=== PATIENT | female | born 1950 | race Caucasian/White ===

== ENCOUNTER 2024-03-31 22:31 | Inpatient (IN) | payer MEDICARE, SELFPAY ==
[2024-03-31 16:00] VITALS: BP 165/80
[2024-03-31 16:02] VITALS: BMI 25.6
[2024-03-31 16:41] LABS: % Basophils 0.4 % (0-2); % Immature Granulocytes 0.3 % (0-0.5); % Lymphocytes 8.2 % (20.5-51.1); % Neutrophils 79.1 % (42.2-75.2); Absolute Basophils 0.1 10^3/uL (0-0.2); Absolute Eosinophils 0.6 10^3/uL (0-0.7); Absolute Monocytes 0.8 10^3/uL (0.1-0.6); Absolute Neutrophils 9.4 10^3/uL (1.4-6.5); Hemoglobin 12.5 g/dL (12.0-16.0); Mean Corp Hgb Conc. 32.1 g/dL (33.0-37.0); Mean Corpuscular Hgb 27.8 pg (27.0-31.0); Mean Corpuscular Volume 86.9 fL (81.0-99.0); Mean Platelet Volume 9.9 fL (7.4-10.4); Nucleated Red Blood Cells % 0 %; Platelet Count 255 10^3/uL (130-400); Red Blood Cell Count 4.49 10^6/uL (4.20-5.40); Red Cell Dist. Width 13.9 % (11.5-14.5); White Blood Cell Count 11.9 10^3/uL (4.8-10.8)
--- NOTE | 2024-03-31 16:50 | ED.GENMED ---
History of Present Illness
<JONATHAN Pringle - Last Filed: 04/02/24 15:30>
General
Chief Complaint: Abdominal Pain
Source: patient
Exam Limitations: none
Time Seen by Provider: 03/31/24 15:45
Nursing documentation reviewed up to this point in time: agreed with
History of Present Illness
History of Present Illness:
74-year-old female presents to the ER for evaluation. 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 Follwed at [facility] on Immunetherapy.
She has since had a left nephrectomy. She started with abdominal pain left-sided this morning at 7 AM. She is nauseous and did vomit this once. She has not had diarrhea. She moved her bowels yesterday.
She drinks alcohol 'a couple of week.' Denies cp/sob
Past History
<JONATHAN Pringle - Last Filed: 04/02/24 15:30>
Past History
ED Past Medical History: Psychiatric (Anxiety/depression) and Other (UTIs, Melanoma, )
ED Past Surgical History: Gynecological (Tubal ligation), Tonsilectomy and Other (Mesh placed. Cystocel/Rectacel)
Social History
Tobacco: Non-smoker
Alcohol: None
Personal:
Living: with family
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
Family History
Family History: Other (Noncontributory)
Review of Systems
<JONATHAN Pringle - Last Filed: 04/02/24 15:30>
Review of Systems
Allergies reviewed?: Yes
All Other Systems: ROS reviewed and negative except as documented in HPI and ROS
Constitutional: Reports no symptoms; Denies fever, fatigue or chills
Respiratory: Reports no symptoms
Cardiac: Reports no symptoms
ABD/GI: Reports abdominal pain, nausea and vomiting; Denies diarrhea
: Reports no symptoms
Musculoskeletal: Reports no symptoms
Skin: Reports no symptoms
Hematologic/Lymphatic: Reports no symptoms
Psychiatric: Reports no symptoms
Phy Exam
<JONATHAN Pringle - Last Filed: 04/02/24 15:30>
General Physical Exam
General Presentation: no apparent distress
General age: appears stated age
General Skin: warm and dry
General Habitus: normal
General Mental: alert
General Hydration: appears well hydrated
Cardiovascular Exam
Cardiovascular Exam: regular rate/rhythm, no murmur and normal peripheral pulses
Pulmonary Exam
Pulmonary Exam: lungs clear and no respiratory distress
Gastrointestinal Exam
Gastrointestinal Exam: soft and other (tender throughout left abdomen )
Neurological Exam
Neurological Exam: alert and oriented x3
Musculoskeletal Exam
Musculoskeletal Exam: full ROM
Skin Exam
Skin Exam: normal color and warm/dry
Psychiatric Exam
Psychiatric Exam: normal mood/affect
Course
<JONATHAN Pringle - Last Filed: 04/02/24 15:30>
Orders/Labs/Results
Orders:
Orders
03/31/24 13:38
EKG [Electrocardiogram (*1)] Urgent
Reason for Study: Abdominal Pain
03/31/24 16:29
Complete Blood Count/With Diff Urgent
Comprehensive Metabolic Panel Urgent
Lipase Urgent
Troponin I Urgent
03/31/24 16:56
Iohexol [Omnipaque] See Protocol PO NOW STA
03/31/24 16:57
CT Abd/pel (oral only)-[facility] Only Urgent
Comment:
Reason For Exam: left sided abd pain hx of nephrectomy
03/31/24 16:58
0.9% Sodium Chloride 1000 ml [Nss] 1,000 ml IV BOLUS
03/31/24 18:41
HYDROmorphone [Dilaudid] 0.5 mg IV NOW STA
03/31/24 20:02
UA Reflex to Culture [Urinalysis Reflex To Culture] Urgent
Date Specimen was Collected: 03/31/24
Time Specimen was Collected: 20:01
03/31/24 22:12
Admit/Transfer Patient As Directed
Co-Sign Provider:
Level of Care: Inpatient admission
Assign to:: Medical/Surgical
Physician / Group: Boo Doss
Diagnosis: acute pancreatitis
Reason for Hospitalization: acute pancreatitis
Expected length of stay greater than two midnights?: Yes
ELOS- Estimated Length of Stay in days: 3
I certify the patient meets the requirements for IP care: Yes
PRN Pain Medication Management As Directed
May give lesser potent ordered pain med per pt: Yes
preference::
Protocol:: Medication orders for pain may be administered in a
manner that supports deferring to patient preference
when the pt is:
- Requesting an ordered lesser potent pain medication.
Least to most potent pain medications are defined
as: acetaminophen < NSAID < tramadol < opioids
(morphine, oxycodone, hydromorphone).
- Requesting a lesser dose of the same medication IF
ORDERED.
- Requesting a less intrusive route of administration
if both routes are prescribed by the provider (PO <
IV).
03/31/24 22:13
Code Status As Directed
Resuscitation Status: Full Code
03/31/24 23:40
Acetaminophen [Tylenol] 650 mg PO Q4HPRN PRN
Alprazolam [Xanax] 0.5 mg PO DAILYPRN PRN
Lactated Ringers [Lr] 1,000 ml IV 100 mls/hr
Morphine Sulfate 2 mg IV Q4HPRN PRN
Ondansetron Injectable [Zofran] 4 mg IV Q6HPRN PRN
03/31/24 23:40
Activity As Directed
Activity Level: Ambulate
Vital Signs As Directed
Frequency: Per unit guidelines
Weight As Directed
Frequency: Once
DX Deep Vein Thrombosis Video Routine
04/01/24 04:43
Basic Metabolic Panel IN AM
Complete Blood Count/No Diff IN AM
Lipase IN AM
04/01/24 08:00
Bupropion(24Hr)Extended Releas [WELLBUTRIN XL (24 hour extended release)] 150 mg PO DAILY
glucosamine-chondroitin [Osteo Bi-Flex] 1 tablet PO DAILY
04/01/24 18:00
Enoxaparin Sodium [Lovenox] 40 mg SC QPM
04/01/24 22:00
Ropinirole [Requip] 0.5 mg PO HS
Abnormal Lab Results
03/31/24
16:29
WBC 11.9 H 10^3/uL
(4.8-10.8)
MCHC 32.1 L g/dL
(33.0-37.0)
Absolute Neuts (auto) 9.4 H 10^3/uL
(1.4-6.5)
Absolute Lymphs (auto) 1.0 L 10^3/uL
(1.2-3.4)
Absolute Monos (auto) 0.8 H 10^3/uL
(0.1-0.6)
Neutrophils % 79.1 H %
(42.2-75.2)
Lymphocytes % 8.2 L %
(20.5-51.1)
Sodium 134 L mmol/L
(135-145)
Glucose 117 H mg/dl
(70-99)
Alkaline Phosphatase 135 H U/L
(38-126)
Lipase > 4000 H* U/L
(23-300)
03/31/24 16:29
03/31/24 16:29
Vital Signs
Initial and Last Documented VS:
Initial Vital Signs
Temp Pulse Resp Pulse Ox
98 F 82 18 98
03/31/24 13:38 03/31/24 13:38 03/31/24 13:38 03/31/24 13:38
Last Documented Vital Signs
Temp Pulse Resp BP Pulse Ox
97.7 F 93 18 160/93 95
04/01/24 15:30 04/01/24 15:30 04/01/24 15:30 04/01/24 15:30 04/01/24 15:30
Valve Maker consulted with Physician
Valve Maker consulted with physician?: Yes
Name of Physician Consulted: Dannielle
<Michael Morris PA-C - Last Filed: 03/31/24 20:41>
Orders/Labs/Results
Orders:
Orders
03/31/24 13:38
EKG [Electrocardiogram (*1)] Urgent
Reason for Study: Abdominal Pain
03/31/24 16:29
Complete Blood Count/With Diff Urgent
Comprehensive Metabolic Panel Urgent
Lipase Urgent
Troponin I Urgent
03/31/24 16:56
Iohexol [Omnipaque] See Protocol PO NOW STA
03/31/24 16:57
CT Abd/pel (oral only)-[facility] Only Urgent
Comment:
Reason For Exam: left sided abd pain hx of nephrectomy
03/31/24 16:58
0.9% Sodium Chloride 1000 ml [Nss] 1,000 ml IV BOLUS
03/31/24 18:41
HYDROmorphone [Dilaudid] 0.5 mg IV NOW STA
03/31/24 20:02
UA Reflex to Culture [Urinalysis Reflex To Culture] Urgent
Date Specimen was Collected: 03/31/24
Time Specimen was Collected: 20:01
03/31/24 22:12
Admit/Transfer Patient As Directed
Co-Sign Provider:
Level of Care: Inpatient admission
Assign to:: Medical/Surgical
Physician / Group: Boo Doss
Diagnosis: acute pancreatitis
Reason for Hospitalization: acute pancreatitis
Expected length of stay greater than two midnights?: Yes
ELOS- Estimated Length of Stay in days: 3
I certify the patient meets the requirements for IP care: Yes
PRN Pain Medication Management As Directed
May give lesser potent ordered pain med per pt: Yes
preference::
Protocol:: Medication orders for pain may be administered in a
manner that supports deferring to patient preference
when the pt is:
- Requesting an ordered lesser potent pain medication.
Least to most potent pain medications are defined
as: acetaminophen < NSAID < tramadol < opioids
(morphine, oxycodone, hydromorphone).
- Requesting a lesser dose of the same medication IF
ORDERED.
- Requesting a less intrusive route of administration
if both routes are prescribed by the provider (PO <
IV).
03/31/24 22:13
Code Status As Directed
Resuscitation Status: Full Code
03/31/24 23:40
Acetaminophen [Tylenol] 650 mg PO Q4HPRN PRN
Alprazolam [Xanax] 0.5 mg PO DAILYPRN PRN
Lactated Ringers [Lr] 1,000 ml IV 100 mls/hr
Morphine Sulfate 2 mg IV Q4HPRN PRN
Ondansetron Injectable [Zofran] 4 mg IV Q6HPRN PRN
03/31/24 23:40
Activity As Directed
Activity Level: Ambulate
Vital Signs As Directed
Frequency: Per unit guidelines
Weight As Directed
Frequency: Once
DX Deep Vein Thrombosis Video Routine
04/01/24 04:43
Basic Metabolic Panel IN AM
Complete Blood Count/No Diff IN AM
Lipase IN AM
04/01/24 08:00
Bupropion(24Hr)Extended Releas [WELLBUTRIN XL (24 hour extended release)] 150 mg PO DAILY
glucosamine-chondroitin [Osteo Bi-Flex] 1 tablet PO DAILY
04/01/24 18:00
Enoxaparin Sodium [Lovenox] 40 mg SC QPM
04/01/24 22:00
Ropinirole [Requip] 0.5 mg PO HS
Abnormal Lab Results
03/31/24
16:29
WBC 11.9 H 10^3/uL
(4.8-10.8)
MCHC 32.1 L g/dL
(33.0-37.0)
Absolute Neuts (auto) 9.4 H 10^3/uL
(1.4-6.5)
Absolute Lymphs (auto) 1.0 L 10^3/uL
(1.2-3.4)
Absolute Monos (auto) 0.8 H 10^3/uL
(0.1-0.6)
Neutrophils % 79.1 H %
(42.2-75.2)
Lymphocytes % 8.2 L %
(20.5-51.1)
Sodium 134 L mmol/L
(135-145)
Glucose 117 H mg/dl
(70-99)
Alkaline Phosphatase 135 H U/L
(38-126)
Lipase > 4000 H* U/L
(23-300)
03/31/24 16:29
03/31/24 16:29
Vital Signs
Initial and Last Documented VS:
Initial Vital Signs
Temp Pulse Resp Pulse Ox
98 F 82 18 98
03/31/24 13:38 03/31/24 13:38 03/31/24 13:38 03/31/24 13:38
Last Documented Vital Signs
Temp Pulse Resp BP Pulse Ox
97.7 F 93 18 160/93 95
04/01/24 15:30 04/01/24 15:30 04/01/24 15:30 04/01/24 15:30 04/01/24 15:30
<JONATHAN Pringle - Last Filed: 04/02/24 15:30>
MDM/Problems Addressed
MDM/Problems Addressed:
Patient is a 74-year-old female presents to the ER for evaluation. Patient has a history of stage IV melanoma with metastasis to kidney has history of left nephrectomy. She complains of left side abdominal pain. On exam she is tender throughout
the left side denies any fever chills. She is nauseous and did vomit once. She does have an elevated lipase of greater than 4000 [address] however will CT with oral contrast only.
1810: care of pt at this time transferred to LA[facility] Kennedy
<JONATHNA Pringle - Last Filed: 04/02/24 15:30>
*Radiology
Radiology exam reviewed: radiology read reviewed
*Pulse Oximetry
Patient hypoxic: no
<Michael Morris PA-C - Last Filed: 03/31/24 20:41>
*Critical Care Note
Total Time (30-74mins, 75-104mins- exclusive of procedures): Not Applicable
<Michael Morris PA-C - Last Filed: 03/31/24 20:41>
Update Note
Update Note:
Assumed care of patient pending CT of abdomen. CT of abdomen demonstrates acute pancreatitis. Reviewed labs. Lipase is more than 4000. Feeling slightly improved after Dilaudid and fluids. Will admit to hospital for acute pancreatitis
ED Attending Note
<JONATHAN Pringle - Last Filed: 04/02/24 15:30>
-
Portions of this chart may have been created with voice recognition software.� Occasional wrong word or��sound alike� substitutions may have occurred due to the inherent limitations of voice recognition software.
Discharge Plan
Departure
Patient Disposition: Admit
Date of Disposition: 03/31/24
Time of Disposition: 20:41
Presentation/result/management discussed w/ accepting MD/DO: Hospitalist
Discharge Problem:
Acute pancreatitis
Interventions
Interventions:
*Risk Screen - Suicide Last Done: 03/31/24 13:38
*General Assessment Last Done: 03/31/24 13:38
*Neglect/Abuse Screening Last Done: 03/31/24 13:38
ED- Fall Risk Assessment Last Done: 03/31/24 18:00
*ED COVID-19 Vaccine History Last Done: 03/31/24 13:38
*Nursing Disposition Last Done: 03/31/24 23:51
YQ-Xoxlue-Rydpohtefd Assessment Last Done: 03/31/24 18:00
Discharge Date and Time
Discharge Date/Time: 03/31/24 23:51
[2024-03-31 17:05] LABS: Troponin I < 0.012 ng/ml
[2024-03-31 17:06] LABS: ALT (SGPT) 23 U/L (0-35); AST (SGOT) 25 U/L (14-36); Albumin 3.9 g/dl (3.5-5.0); Alkaline Phosphatase 135 U/L (38-126); Blood Urea Nitrogen 17 mg/dl (7-17); Calcium 9.8 mg/dl (8.4-10.2); Carbon Dioxide 29 mmol/L (22-30); Chloride 98 mmol/L (98-107); Estimated Creatinine Clearance 57 ml/min; Glucose 117 mg/dl (70-99); Potassium 3.8 mmol/L (3.5-5.1); Sodium 134 mmol/L (135-145); Total Bilirubin 0.4 mg/dl (0.2-1.3); Total Protein 6.7 g/dl (6.3-8.2); eGFR > 60.00
[2024-03-31] MEDS: NSS 1000 IV (17:27)
[2024-03-31] MEDS: OMNIPAQUE 50 ML PO (17:27)
[2024-03-31 17:36] LABS: Lipase > 4000 U/L (23-300)
[2024-03-31] MEDS: DILAUDID 0.5 MG IV (18:46)
[2024-03-31 20:09] LABS: Urine Albumin Negative (Neg - Trace); Urine Bilirubin Negative (Negative); Urine Character Clear (Clear); Urine Color Yellow; Urine Glucose Negative (Negative); Urine Ketone Negative (Negative); Urine Leukocyte Negative (Negative); Urine Nitrite Negative (Negative); Urine Occult Blood Negative (Negative); Urine Urobilinogen Negative (Neg - 1+)
--- NOTE | 2024-03-31 21:12 | HPS.HSE ---
Addendum entered and electronically signed by Boo Doss DO 03/31/24 22:53:
Patient seen and examined independently. Agree with findings and plan as set forth by JONATHAN Moreno.
Patient is a 74y F with PMH significant for malignant melanoma who presents to ED complaining of abdominal pain. Patient states that she woke with this abdominal discomfort this AM. Pain was epigastric and associated with nausea / single
episode of emesis. She denies any fevers / chills. No diarrhea or urinary complaints. No prior h/o similar symptoms. Patient has no history of excessive alcohol use. She does note that her about 2 months ago and she has been
going out with friends more regularly to get out of the house. She will have perhaps 1/2 glass of wine during these outings.
She is on Opdivo for treatment of her melanoma and has been on this agent since 2022.
Ass:
Acute Pancreatitis - Uncertain Etiology
Malignant Melanoma on Immunotherapy
Anxiety / Depression
Restless Leg Syndrome
Plan:
Admit for further evaluation and treatment.
CT scan with acute pancreatitis. No note of gallstones or other significant abnormality.
NPO, IVFs, pain control and antiemetics.
Follow for clinical improvement and introduce / advance diet as able.
Check US in the AM to definitively exclude gallstones.
Opdivo can be associated with pancreatitis - ? if it would occur several years into treatment.
There has been some recent increase in EtOH intake - though not excessive by any measure.
Abstain from further EtOH.
Follow-up with Oncology (Gabriele Pillai) after discharge.
\\
Original Note:
Family Physician
-
Family Physician: Ly Gallardo DO
Chief Complaint
-
abdominal pain
History of Present Illness
Patient is a 74-year-old female with past medical history significant for hypertension, anxiety/depression and restless leg syndrome who presented to [facility] ED for evaluation of severe left sided abdominal pain that started this
morning. Patient reports that she woke up this morning and when she went to bathroom she noticed discomfort on left upper abdomen that gradually increased throughout day. She stated she tried tums thinking she was having severe indigestion but was
ineffective. She did have some nausea with an episode of vomiting prior to coming for evaluation. Patient denies any other symptoms at this time. She reports she is currently under care at [facility] for stage IV Melanoma receiving
monthly immunotherapy, next infusion 04/16/2024. Patient denies any fevers, chills, cough, shortness of breath, chest pain, constipation, diarrhea or urinary symptoms.
Medical History
Past Medical History
Past Medical History: Reports Other
Additional Past Medical History:
benign hypertension
anxiety/depression
restless leg syndrome
Hx metastatic melanoma
Past Surgical History: Reports Other
Additional Past Surgical History:
Pelvic Mesh for urinary incontinence/cystocele(2011)
Tubal with salpingectomy
Tonsillectomy (1971)
Rectocele repair(2018)
Left nephrectomy (08/15/2022)
wide excision melanoma/axillary dissection (10/25/21)
Social History
Tobacco: Non-smoker
Alcohol: Occasional
Drug: None
Personal:
Living: Alone
Employment: Retired
Family History
Family History: Not pertinent and Other (Father: Leukemia; Mom: Alzheimer's )
Allergies / Home Medications
Allergies reflects when Allergies were last updated in [employer].
Home Medications with original date entered in [employer]
Allergy/Medication List:
Allergies
Allergy/AdvReac Type Severity Reaction Status Date / Time
No Known Allergies Allergy Verified 11/27/22 21:50
Home Medications
acetaminophen 325 mg tablet (Tylenol) 650 mg PO Q4HPRN PRN mild pain 03/31/24
alprazolam 0.5 mg tablet (Xanax) 0.5 mg PO DAILYPRN PRN anxiety 03/31/24
bupropion HCl 150 mg 24 hr tablet, extended release (Wellbutrin XL) 150 mg PO DAILY 03/31/24
glucosamine-chondroitin 250 mg-200 mg tablet (Osteo Bi-Flex) 1 tab PO DAILY 03/31/24
ibuprofen 200 mg tablet (Advil) 400 mg PO Q8HPRN PRN mild pain 03/31/24
naproxen sodium 220 mg tablet (Aleve) 220 mg PO BIDPRN PRN mild pain 03/31/24
ropinirole 0.25 mg tablet 0.5 mg PO HS 03/31/24
Review of Systems
-
History Source: Patient
Constitutional: Reports No Symptoms
EENT: Reports No Symptoms
Respiratory: Reports No Symptoms
Cardiac: Reports No Symptoms
Abdomen/GI: Reports Abdominal Pain (left sided ), Nausea and Vomiting
: Reports No Symptoms
Musculoskeletal: Reports No Symptoms
Skin: Reports No Symptoms
Neurological: Reports No Symptoms
Endocrine: Reports No Symptoms
Hematologic/Lymphatic: Reports No Symptoms
Psych: Reports No Symptoms
Physical Exam
Vital Signs
Vital Signs
Temp Pulse Resp BP Pulse Ox
98 F 72 18 165/80 98
03/31/24 13:38 03/31/24 16:00 03/31/24 16:00 03/31/24 16:00 03/31/24 16:00
Physical Exam
General: Well Developed, Well Nourished, No Apparent Distress and Comfortable
HEENT: NormoCephalic, Moist mucous membranes, Atraumatic, Lequire Conjunctivae, Nose Appears Normal and Ears Appear Normal
Respiratory: Clear and Non Labored Respirations
Cardiac: S1/S2 and Regular Rhythm; No Murmur, Rub or Gallop
Breast: Deferred by me
GI: Soft, Normal Bowel Sounds and Tender; No Organomegaly
Rectal: Deferred by Provider
Genito-urinary: Deferred by me
Musculoskeletal: No Clubbing, No Cyanosis and No Edema
Skin: Warm and IV/Catheter Site; No Rash
Neuro: Awake, Alert, AO x 3 and Nonfocal/grossly intact
Psych: Intact Judgment/Insight and Depressed (lost 2 months ago )
Laboratory Results
-
03/31/24 16:29
03/31/24 16:
Laboratory Results
Total Bilirubin 0.4 mg/dl (0.2-1.3) 03/31/24 16:
AST 25 U/L (14-36) 03/31/24 16:
ALT 23 U/L (0-35) 03/31/24 16:
Alkaline Phosphatase 135 U/L (38-126) H 03/31/24 16:
Troponin I < 0.012 ng/ml 03/31/24 16:
Lipase > 4000 U/L (23-300) H* 03/31/24 16:
Data Reviewed
-
CT Scan: Report Reviewed by me (Abd/Pelvis: Acute pancreatitis with peripancreatic inflammatory fat stranding and edema in the upper abdomen. Recommend correlation with lipase levels.)
Medical Tests (Nuc Med, Echo, EKG etc): Report Reviewed by me (EKG: NORMAL SINUS RHYTHM)
Lab Data: Labs Reviewed by me (Lipase >4000, Alk Phos 135)
Impression/Plan
-
IMPRESSION/PLAN:
#acute pancreatitis
Lipase > 4000, Alk Phos 135
Abd/Pelvis CT: Acute pancreatitis with peripancreatic inflammatory fat stranding and edema in the upper abdomen. Recommend correlation with lipase levels.
EKG: NORMAL SINUS RHYTHM
- Admit to med/surg
- IVF
- NPO
- Abdominal US
#anxiety/depression
- continue alprazolam and bupropion
#restless leg syndrome
- continue ropinirole
#Hx metastatic melanoma
follows at [facility], currently receiving Immunotherapy
s/p left nephrectomy
#benign hypertension
Code status: Full code
DVT prophylaxis: Lovenox sq
[2024-03-31 23:09] VITALS: BP 158/88
[2024-03-31 23:53] VITALS: BP 165/100; BMI 26.6
[2024-04-01] MEDS: LR 1000 IV ×2 (00:15→09:59)
[2024-04-01] MEDS: MORPHINE SULFATE 2 MG IV ×2 (00:18→05:42)
[2024-04-01] MEDS: ZOFRAN 4 MG IV (00:18)
--- NOTE | 2024-04-01 02:13 | PTCARENOTE ---
Receive pt from ER. Pt alert oriented X3, calm and cooperative, in no distress. Pt assisted to her bed, steady on her feet. Pt oriented to the room, call quispe within reach. AV=306/100, HR=89, T=98.2, SpO2=96% on RA. Pt anxious and tearful @ times.
Pt states that she lost her about 2 months ago. Pt reports nausea, and pain in the left upper Abd (5/10). Pt is NPO. Zofran and morphine given, IVFs infusing as per order. Pt is resting in her bed. Will continue to monitor the pt.
[2024-04-01 03:56] VITALS: BP 155/79
[2024-04-01 05:06] LABS: Hematocrit 34.6 % (37.0-47.0); Hemoglobin 11.4 g/dL (12.0-16.0); Mean Corp Hgb Conc. 32.9 g/dL (33.0-37.0); Mean Corpuscular Hgb 28.3 pg (27.0-31.0); Mean Corpuscular Volume 85.9 fL (81.0-99.0); Mean Platelet Volume 10.2 fL (7.4-10.4); Platelet Count 221 10^3/uL (130-400); Red Blood Cell Count 4.03 10^6/uL (4.20-5.40); Red Cell Dist. Width 13.9 % (11.5-14.5); White Blood Cell Count 9.4 10^3/uL (4.8-10.8)
[2024-04-01 05:20] LABS: Blood Urea Nitrogen 14 mg/dl (7-17); Calcium 9.5 mg/dl (8.4-10.2); Carbon Dioxide 29 mmol/L (22-30); Chloride 102 mmol/L (98-107); Estimated Creatinine Clearance 65 ml/min; Glucose 98 mg/dl (70-99); Potassium 3.7 mmol/L (3.5-5.1); Sodium 135 mmol/L (135-145); eGFR > 60.00
[2024-04-01 06:10] LABS: Lipase > 4000 U/L (23-300)
[2024-04-01 07:40] VITALS: BP 158/86
--- NOTE | 2024-04-01 08:51 | W.PN.HOSP.TC ---
Today's Communication/Plan
-
IV fluids. Start diet and advance as tolerated.
Assessment / Plan
Assessment / Plan
Physical exam:
General: Well Developed, Well Nourished and No Apparent Distress
HEENT: Normocephalic, Atraumatic and Moist Mucous Membranes
Respiratory: Clear to Auscultation; Negative Wheezes, Rales or Rhonchi
Cardiac: Regular Rhythm and S1/S2
GI: Soft, mild tender and Nondistended
Musculoskeletal: No Clubbing, No Cyanosis and No Edema
Neuro: Awake, Alert and Oriented
Psych: Calm
A/P:
Acute pancreatitis:
IV fluid
Start clear liquid diet and advance as tolerated
Trend lipase
Seen CT of the abdomen and pelvis and abdominal ultrasound
Encourage alcohol abstinence
Metastatic melanoma:
On Opdivo as outpatient
Hypertension:
Continue home antihypertensive
Depression:
Continue antidepressant
Restless leg syndrome:
Continue Requip
DVT prophylaxis:
Lovenox SQ
CODE STATUS:
Full code
Anticipated Discharge: Within 24 hours
Subjective/Interval History
-
Date of Service: April 01, 2024
Patient feels better overall. She did not require pain medications earlier this morning. She also wants to go home although explained the need for inpatient monitoring now.
Objective Data
-
Labs:
Laboratory Results
04/01/24
04:43
WBC 9.4
Hgb 11.4 L
Hct 34.6 L
Plt Count 221
Sodium 135
Potassium 3.7
Chloride 102
Carbon Dioxide 29
BUN 14
Creatinine 0.7
Glucose 98
Calcium 9.5
Vital Signs:
Vital Signs
Temp Pulse Resp BP Pulse Ox
98.2 F 84 16 158/86 96
04/01/24 07:40 04/01/24 07:40 04/01/24 07:40 04/01/24 07:40 04/01/24 08:00
I&O
03/31/24 04/01/24 04/02/24
06:59 06:59 06:59
Intake Total 550 / 550
Balance 550 / 550
[2024-04-01 15:30] VITALS: BP 160/93
--- NOTE | 2024-04-01 16:16 | CM ---
Alert awake oriented patient who lives alone in a 2 story home with 2 steps to enter and 12 to bed bathroom.Her dgt Neha visits often She is independent in driving and in all activities of daily living.Offered VN she declined.
No adaptive devices
Never had VN/SNF
Pharmacy [facility]
PCP Dr Ky Gallardo
PLAN Home no needs
--- NOTE | 2024-04-01 16:26 | W.DCSUMMARY ---
Discharge Summary
Discharge Data
Date of Admission: 03/31/24
Date of Discharge: 04/01/24
-
Pending Results: No
Hospital Course
Patient 74 years female with history of metastatic melanoma on Opdivo as outpatient came with presentation of acute pancreatitis. She was kept n.p.o. and on IV fluid. We started her on clear liquid diet and advancing as tolerated and in the midst
of a workup. Patient did not want to wait for further workup and management of her pancreatitis and she wanted to sign AGAINST MEDICAL ADVICE and she did. She had mentioned something like that earlier and I have discussed with her and explained
risk and benefit and my associate covering for me also explained to her risks and benefits and she decided to leave. No other events were noticed.
Discharge duration: 35 minutes
Discharge Plan
-
Patient Disposition: Against Medical Advice
Discharge Diagnosis/Procedures: Acute pancreatitis. History of metastatic melanoma. Patient with depression.
Diet: Low Fat
Activity: As tolerated
Blood Work: Please PCP to order CBC, CMP, lipase within 1 week
Referrals:
Ly Gallardo, DO [Family Provider] - in less than 1 week
Prescriptions:
Continued
acetaminophen [Tylenol] 325 mg Tablet
650 mg PO Q4HPRN PRN (Reason: mild pain)
alprazolam [Xanax] 0.5 mg Tablet
0.5 mg PO DAILYPRN PRN (Reason: anxiety)
ropinirole 0.25 mg Tablet
0.5 mg PO HS
glucosamine-chondroitin [Osteo Bi-Flex] 250-200 mg Tablet
1 tab PO DAILY
bupropion HCl [Wellbutrin XL] 150 mg Tablet Extended Release 24 Hr
150 mg PO DAILY
Discontinued
naproxen sodium [Aleve] 220 mg Tablet
220 mg PO BIDPRN PRN (Reason: mild pain)
ibuprofen [Advil] 200 mg Tablet
400 mg PO Q8HPRN PRN (Reason: mild pain)
Discharge Date and Time
Discharge Date/Time: 04/01/24 18:57
Print Language: WELSH
[2024-04-01 16:32] LABS: Lipase 4505 U/L (23-300)
--- NOTE | 2024-04-01 17:25 | W.PN.UPDATE ---
Update Note
Progress Note Update
Nursing notified that the patient wants to leave [facility].
Talk to the patient twice once on the phone and once in person in detail regarding why she needs to stay. Patient stated that she had a Quesadilla. She has not required any pain medicine since 5 AM. Patient states that she lost her 2
months ago and she has a horse who she is very emotionally dependent with and she sees him every day. She cannot go 1 day without seeing the horse. She stated that she does not drink alcohol regularly but had a cup or glass of wine with friends.
She is also on Opdivo which can cause pancreatitis. I discussed both with her and also with elevated lipase. Ramifications of leaving AMA discussed including discussed. She is taking the responsibility. I asked to call her daughter, she said
not to call her.
She will call PCP.
AMA signed
--- NOTE | 2024-04-01 17:29 | PTCARENOTE ---
Patient refusing to stay in the hospital. Cross covering MD came and spoke to patient. Form signed.
== END 2024-04-01 18:57 | disposition left against medical advice (07) | DRG 439 ==
LOC: 4 EAST ACU 22:31
PROVIDERS: Emergency Medicine; Nurse Practitioner; Nurse Practitioner Family; ADMITTING PHYSICIAN Hospitalist; ATTENDING PHYSICIAN Hospitalist; EMERGENCY PHYSICIAN Emergency Medicine; FAMILY PHYSICIAN Internal Medicine
DX: K85.90 Acute pancreatitis without necrosis or infection, unspecified (principal); Z53.29 Procedure and treatment not carried out because of patient's decision for other reasons; C79.00 Secondary malignant neoplasm of unspecified kidney and renal pelvis; I10 Essential (primary) hypertension; F41.9 Anxiety disorder, unspecified; F32.A Depression, unspecified; C43.9 Malignant melanoma of skin, unspecified; G25.81 Restless legs syndrome; Z90.5 Acquired absence of kidney; Z79.899 Other long term (current) drug therapy; Z79.69 Long term (current) use of other immunomodulators and immunosuppressants
CPT/HCPCS: 74176; 76700; 80048; 80053; 81003; 83690; 84484; 85025; 85027; 93005; 96361; 96374; 99285

== ENCOUNTER → 2024-04-08 10:21 | Outpatient (REF) | payer MEDICARE, SELFPAY | LOC: HWRAD 10:21 | PROVIDERS: ATTENDING PHYSICIAN Internal Medicine | DX: R05.1 Acute cough (principal) | CPT/HCPCS: 71046 ==

== ENCOUNTER 2024-09-07 23:26 | Inpatient (IN) | payer MEDICARE, SELFPAY ==
[2024-09-07 19:00] VITALS: BP 169/96
[2024-09-07 19:03] VITALS: BMI 25.5
[2024-09-07 19:05] VITALS: BP 169/96
--- NOTE | 2024-09-07 20:10 | ED.GENMED ---
History of Present Illness
General
Chief Complaint: Weakness
Source: patient
Exam Limitations: none
Time Seen by Provider: 09/07/24 19:57
History of Present Illness
History of Present Illness:
74-year-old female fell out of her truck today. Has noted some progressive ataxia. Admits to being very wobbly. No other complaints. No significant trauma. She could not get off the ground today.
Past History
Past History
ED Past Medical History: Psychiatric (Anxiety/depression) and Other (UTIs, Melanoma, )
ED Past Surgical History: Gynecological (Tubal ligation), Tonsilectomy and Other (Mesh placed. Cystocel/Rectacel)
Social History
Tobacco: Non-smoker
Alcohol: None
Personal:
Living: with family
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
Family History
Family History: Other (Noncontributory)
Review of Systems
Review of Systems
All Other Systems: Not applicable
Respiratory: Reports no symptoms
Cardiac: Reports no symptoms
ABD/GI: Reports no symptoms
Phy Exam
Physical Exam
Physical Exam:
GENERAL: Alert and oriented in no apparent distress. Normocephalic atraumatic
EYE: Orbits normal.
NECK: Supple, nontender.
ENT: Pharynx without erythema
CARDIAC: Regular rate and rhythm without any obvious murmurs.
LUNGS: Clear breath sounds,normal
ABDOMEN: Soft, without focal tenderness or distention
NEUROLOGICAL: Alert and oriented , cranial nerves II through XII intact. Speech normal. Tow Motor Driver normal. Good strength with standing however very ataxic wide-based with a positive Romberg.
SKIN: Warm and dry, mild ecchymosis to both patellas
MUSCULOSKELETAL: No edema,no deformity.Good color. No bony tenderness. No chest wall tenderness.
PSYCH: Normal and appropriate interaction.
Course
Orders/Labs/Results
Orders:
Orders
09/07/24 20:07
CT Head W/o Iv Contrast Urgent
Comment:
Reason For Exam: Progressive ataxia
Cardiac Monitoring- Treatment ONCE
IV Insert/Care/Rem.- Treatment PRN
Pulse Ox/cont/shift [RESP] Stat
Quantity: 1
09/07/24 20:08
Electrocardiogram (*1) Stat
Reason for Study: Other
Other Reason for Exam: neuro symptoms
EKG- Treatment ONCE
09/07/24 21:18
Basic Metabolic Panel Urgent
Complete Blood Count/With Diff Urgent
09/07/24 21:22
Urinalysis Reflex To Culture Urgent
Date Specimen was Collected: 09/07/24
Time Specimen was Collected: 21:20
09/07/24 23:16
Admit/Transfer Patient As Directed
Co-Sign Provider:
Level of Care: Inpatient admission
Assign to:: Medical/Surgical
Physician / Group: Hospital
Diagnosis: Poor balance
Reason for Hospitalization: Poor balance
Expected length of stay greater than two midnights?: Yes
ELOS- Estimated Length of Stay in days: 3
I certify the patient meets the requirements for IP care: Yes
PRN Pain Medication Management As Directed
May give lesser potent ordered pain med per pt: Yes
preference::
Protocol:: Medication orders for pain may be administered in a
manner that supports deferring to patient preference
when the pt is:
- Requesting an ordered lesser potent pain medication.
Least to most potent pain medications are defined
as: acetaminophen < NSAID < tramadol < opioids
(morphine, oxycodone, hydromorphone).
- Requesting a lesser dose of the same medication IF
ORDERED.
- Requesting a less intrusive route of administration
if both routes are prescribed by the provider (PO <
IV).
09/07/24 23:18
Code Status As Directed
Resuscitation Status: Full Code
Abnormal Lab Results
09/07/24
21:18
Hct 35.5 L %
(37.0-47.0)
MCV 80.9 L fL
(81.0-99.0)
RDW 15.2 H %
(11.5-14.5)
Abs Immat Gran (auto) 0.1 H 10^3/uL
(0-0.05)
Absolute Neuts (auto) 7.0 H 10^3/uL
(1.4-6.5)
Absolute Monos (auto) 0.9 H 10^3/uL
(0.1-0.6)
Immature Gran % 0.6 H %
(0-0.5)
Lymphocytes % 15.4 L %
(20.5-51.1)
Sodium 130 L mmol/L
(135-145)
Chloride 97 L mmol/L
(98-107)
BUN 18 H mg/dl
(7-17)
09/07/24 21:18
09/07/24 21:18
Vital Signs
Initial and Last Documented VS:
Initial Vital Signs
Pulse Resp
96 17
09/07/24 18:59 09/07/24 18:59
Last Documented Vital Signs
Temp Pulse Resp BP Pulse Ox
99.6 F 101 19 163/97 92
09/07/24 19:05 09/07/24 22:25 09/07/24 22:25 09/07/24 22:00 09/07/24 22:25
MDM/Problems Addressed
Differential Diagnosis Includes:
Patient with significant ataxia. Warrants inpatient admission. Clearly would have significant ADL issues and lives alone.
*Pulse Oximetry
SaO2: 95
Nasal Cannula flow liters per minute: 95
Oxygen Mode of Delivery: Room air
Patient hypoxic: no
*Critical Care Note
Total Time (30-74mins, 75-104mins- exclusive of procedures): Not Applicable
Data Reviewed
Review of Other/Old Records Reveals: Labs, Records and Testing
ED Attending Note
-
Portions of this chart may have been created with voice recognition software.� Occasional wrong word or��sound alike� substitutions may have occurred due to the inherent limitations of voice recognition software.
Discharge Plan
Departure
Patient Disposition: Admit
Date of Disposition: 09/07/24
Time of Disposition: 22:30
Presentation/result/management discussed w/ accepting MD/DO: Hospitalist
Discharge Problem:
Progressive ataxia
Interventions
Interventions:
*General Assessment Last Done: 09/07/24 19:05
*Neglect/Abuse Screening Last Done: 09/07/24 21:26
*ED- Fall Risk Assessment Last Done: 09/07/24 19:05
*ED COVID-19 Vaccine History Last Done: 09/07/24 19:05
ED- Cardiac Assessment Last Done: 09/07/24 19:51
ED- Neurological Assessment Last Done: 09/07/24 19:51
ED- Pulmonary Assessment Last Done: 09/07/24 19:51
[2024-09-07 20:55] VITALS: BP 187/99
[2024-09-07 21:30] LABS: Hematocrit 35.5 % (37.0-47.0); Hemoglobin 12.0 g/dL (12.0-16.0); Mean Corp Hgb Conc. 33.8 g/dL (33.0-37.0); Mean Corpuscular Volume 80.9 fL (81.0-99.0); Nucleated Red Blood Cells % 0 %; Platelet Count 312 10^3/uL (130-400); Red Cell Dist. Width 15.2 % (11.5-14.5)
[2024-09-07 21:36] LABS: Urine Character Clear (Clear)
[2024-09-07 22:00] VITALS: BP 163/97
[2024-09-07 22:07] LABS: Blood Urea Nitrogen 18 mg/dl (7-17); Calcium 10.2 mg/dl (8.4-10.2); Carbon Dioxide 23 mmol/L (22-30); Chloride 97 mmol/L (98-107); Estimated Creatinine Clearance 53 ml/min; Glucose 92 mg/dl (70-99); Potassium 4.5 mmol/L (3.5-5.1); Sodium 130 mmol/L (135-145); eGFR > 60.00
--- NOTE | 2024-09-07 22:57 | HPS.HSE ---
Family Physician
-
Family Physician: Ly Gallardo DO
Chief Complaint
-
Problems with balance
History of Present Illness
74-year-old woman fell out of her truck today. Has noted some progressive ataxia over several weeks, which she describes more as a balance problem and less as a problem with strength. She dmits to being very wobbly. No other complaints. No
significant trauma. She could not get off the ground today. Her daughter is concerned that the patient may be drinking more than she admits, she is also concerned that this may be a progressive dementia syndrome. patient is having increasingly
frequent bouts of forgetfulness and confusion. The patient's mother had alzheimer's dementia.
Medical History
Past Medical History
Past Medical History: Reports Other
Additional Past Medical History:
Anxiety
depression
UTIs
Melanoma
Tubal ligation
Tonsilectomy
Mesh placed
Cystocel
Rectacel
Past Surgical History: Reports Other
Additional Past Surgical History:
See above
Social History
Tobacco: Non-smoker
Alcohol: Other (may be drinking more than she admits)
Living: With Family
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
Family History
Family History: Other (dementia)
Allergies / Home Medications
Allergies reflects when Allergies were last updated in [facility].
Home Medications with original date entered in [facility]
Allergy/Medication List:
Allergies
Allergy/AdvReac Type Severity Reaction Status Date / Time
No Known Allergies Allergy Verified 11/27/22 21:50
Home Medications
acetaminophen 325 mg tablet (Tylenol) 650 mg PO Q4HPRN PRN mild pain 03/31/24
alprazolam 0.5 mg tablet (Xanax) 0.5 mg PO DAILYPRN PRN anxiety 03/31/24
bupropion HCl 150 mg 24 hr tablet, extended release (Wellbutrin XL) 150 mg PO DAILY 03/31/24
glucosamine-chondroitin 250 mg-200 mg tablet (Osteo Bi-Flex) 1 tab PO DAILY 03/31/24
ropinirole 0.25 mg tablet 0.5 mg PO HS 03/31/24
Review of Systems
-
History Source: Patient
A 12 point ROS was completed and negative except as noted: Yes
Neurological: Reports See HPI
Physical Exam
Vital Signs
Vital Signs
Temp Pulse Resp BP Pulse Ox
99.6 F 101 19 163/97 92
09/07/24 19:05 09/07/24 22:25 09/07/24 22:25 09/07/24 22:00 09/07/24 22:25
Physical Exam
General: Well Developed, Well Nourished, No Apparent Distress, Comfortable and Conversant
HEENT: Nose Appears Normal and Ears Appear Normal; No Moist mucous membranes
Respiratory: Clear
Cardiac: S1/S2 and Regular Rhythm
GI: Soft, Non Tender and Non Distended
Musculoskeletal: No Clubbing, No Cyanosis and No Edema
Skin: Warm and Dry
Neuro: Awake and Alert
Psych: Calm
Laboratory Results
-
09/07/24 21:18
09/07/24 21:18
Data Reviewed
-
Lab Data: Labs Reviewed by me
Impression/Plan
-
IMPRESSION:
74 woman with balance problems, progressively worsening. CT of brain showed:
Unenhanced CT imaging of the head reveals no findings to suggest recent infarction, intracranial hemorrhage, extra-axial fluid collection, mass effect or midline shift.
Small old infarct is seen in the right frontal lobe deep white matter.
The ventricles, cisterns and sulci are slightly prominent commensurate with age.
The brainstem and posterior fossa structures demonstrate no significant focal abnormality.
PLAN:
1. Poor balance, poor memory, and family h/o dementia, h/o melanoma
Neuro consult
Brain MRI in am - rule out mets
PT consult
Consider early hydrocephalus as a possibility
2. BUN/Creat ratio > 20 and dry mouth - may be dehydrated
Gentle fluids overnight
recheck labs in am
3. H/O depression and anxiety on xanax
Poor balance could be from combo of xanax and alcohol
Tell patient to avoid taking both at same time
4. Depression and anxiety
Psych consult if no other explanation is found
Full code
VCD for DVTp
[2024-09-08 01:09] VITALS: BMI 25.0
[2024-09-08 01:30] VITALS: BP 174/95
[2024-09-08] MEDS: THIAMINE INJECTION 200 MG IV ×3 (01:40→19:37)
[2024-09-08] MEDS: NSS 1000 IV ×2 (01:41→10:44)
[2024-09-08] MEDS: REQUIP 0.5 MG PO ×2 (02:58→19:37)
[2024-09-08 04:10] LABS: Magnesium 1.8 mg/dl (1.6-2.3)
[2024-09-08 04:15] LABS: HDL Cholesterol 101 mg/dl; LDL Cholesterol, Calculated 134 mg/dl; Very Low Density Lipoprotein 33 mg/dl (0-30)
[2024-09-08 05:16] LABS: Folate > 20.0 ng/ml (2.76-20)
[2024-09-08 07:00] VITALS: BP 160/87
[2024-09-08] MEDS: WELLBUTRIN XL (24 hour extended release) 150 MG PO (08:47)
[2024-09-08] MEDS: FOLVITE 1 MG PO (08:47)
--- NOTE | 2024-09-08 10:34 | PTOTSP ---
Speech Therapy Evaluation:
Pt presents with grossly functional oropharyngeal swallow at bedside. Acute risk factor for dysphagia includes progressive ataxia for weeks (brain MRI scheduled to r/o mets with h/o melanoma). No overt s/sx of aspiration at bedside, WBC WNL, on room
air, and without dysphagia hx. No chest imaging completed thus far
Recommend:
1. Cont. regular solids and thin liquids
2. Meds as tolerated
3. General aspiration precautions
4. MACHINE CAPTAIN to briefly follow to monitor tolerance of diet and determine if cognitive assessment warranted
[2024-09-08 11:03] VITALS: BP 171/107; PULSE 82; O2SAT 97
[2024-09-08 11:04] VITALS: BP 171/107; PULSE 80; O2SAT 96
--- NOTE | 2024-09-08 13:34 | CON.NEURO ---
Neuro Assessment/Plan
Assessment
Brain MRI imgs rev'd, chronic stroke right anterior limb internal capsule would explain her left sided deficits.
Falls, exam consistent with Parkinson's disease which is probly the reason for her falls. 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
chronic stroke, patient not previously aware, check carotid u/s, start asa 81, Lipitor 40
grief, depression, doubt neurodegenerative dementia as she denied any symptoms prior to her passing and there is no reported functional decline.
Consultation
Order
Date of Consultation: 09/08/24
Requesting Provider: Yobani Villarreal
Reason for Consult: frequent falls, ?dementia
Subjective/Objective
Subjective Data
Date of Service: September 08, 2024
from h&p
74-year-old woman fell out of her truck today. Has noted some progressive ataxia over several weeks, which she describes more as a balance problem and less as a problem with strength. She dmits to being very wobbly. No other complaints. No
significant trauma. She could not get off the ground today. Her daughter is concerned that the patient may be drinking more than she admits, she is also concerned that this may be a progressive dementia syndrome. patient is having increasingly
frequent bouts of forgetfulness and confusion. The patient's mother had alzheimer's dementia.
this morning patient reports that she was tryna get something out of the back of her truck and fell backwards sat on the ground couldn't get up. 2nd time that she fell/couldn't get up. admits to recent gait problems. on Requip for RLS, not sure if
it's helping her gait. Admits to recent short term memory loss, no functional decline, lives alone, pays her own bills. her mother of Alz age 94
Objective Data
Vital Signs
Temp Pulse Resp BP Pulse Ox
36.7 C 82 16 160/87 92
09/08/24 07:00 09/08/24 07:00 09/08/24 07:00 09/08/24 07:00 09/08/24 07:00
Lab Results
09/07/24 21:18
09/07/24 21:18
Sodium 130 mmol/L (135-145) L 09/07/24 21:18
Potassium 4.5 mmol/L (3.5-5.1) 09/07/24 21:18
BUN 18 mg/dl (7-17) H 09/07/24 21:18
Glucose 92 mg/dl (70-99) 09/07/24 21:18
Calcium 10.2 mg/dl (8.4-10.2) 09/07/24 21:18
Phosphorus 3.6 mg/dl (2.5-4.5) 09/08/24 03:37
LDL Cholesterol, Calc 134 mg/dl 09/08/24 03:37
Patient Allergies
No Known Allergies Allergy (Verified 11/27/22 21:50)
Physical Exam
-
AAOx3, speech clear, language intact
VFF, EOMI, face symmetric
left pronator drift, subtle left sided weakness
rapid alternating movements with bradykinesia and induces oromandibular dyskinesias
mild cogwheel rigidity
Medications
-
Active Medications
Generic Name Dose Route Start Last Admin
Trade Name Freq PRN Reason Stop Dose Admin
Acetaminophen 650 mg 09/08/24 01:00
Acetaminophen 325 Mg Tablet PO 10/06/24 00:59
Q4HPRN PRN
mild pain
Acetaminophen 650 mg 09/08/24 01:00
Acetaminophen 325 Mg Tablet PO 10/06/24 00:59
Q4HPRN PRN
MARTINEZ, mild pain, or temp >100.4F
Alprazolam 0.5 mg 09/08/24 01:00
Alprazolam 0.5 Mg Tablet PO 10/06/24 00:59
DAILYPRN PRN
anxiety
Bupropion HCl 150 mg 09/08/24 08:00 09/08/24 08:47
Bupropion (24hr) Extended Release 150 Mg Tablet PO 10/06/24 07:59 150 mg
DAILY SHILPI Administration
Folic Acid 1 mg 09/08/24 08:00 09/08/24 08:47
Folic Acid 1 Mg Tablet PO 10/06/24 07:59 1 mg
DAILY SHILPI Administration
Heparin Sodium (Porcine) 500 unit 09/08/24 04:15
Heparin Flush Pf (100 Unit/Ml) 5 Ml Syringe IV 10/06/24 04:14
PER PROTOCOL SHILPI
Sodium Chloride 1,000 mls @ 125 mls/hr 09/08/24 01:00 09/08/24 10:44
Nss IV 1,000 mls
.Q8H SHILPI Administration
Folic Acid 1 mg/ Sodium 50.2 mls @ 200.8 mls/hr 09/08/24 01:00
Chloride IV 10/06/24 00:59
DAILYPRN PRN
if NPO
Lorazepam 1 mg 09/08/24 01:00
Lorazepam 1 Mg Tablet PO 10/06/24 00:59
Q2HPRN PRN
MSAS 5-7
Lorazepam 2 mg 09/08/24 01:00
Lorazepam 2 Mg/Ml Vial IV 10/06/24 00:59
Q1HPRN PRN
MSAS > 11
Lorazepam 1 mg 09/08/24 01:09
Lorazepam 1 Mg Tablet SL 10/06/24 00:59
Q1HPRN PRN
MSAS 8-11
Ropinirole HCl 0.5 mg 09/08/24 22:00
Ropinirole 0.25 Mg Tablet PO 10/06/24 21:59
HS SHILPI
Sodium Chloride 0 ml 09/08/24 01:00
Sodium Chloride 0.9% (Preservative Free) 10 Ml Vial IV 10/06/24 00:59
PRN PRN
To dilute IV Ativan
Protocol
Sodium Chloride 0 flush 09/08/24 02:00
Sodium Chloride 0.9% (Flush) Syringe IV 10/06/24 01:59
PER PROTOCOL SHILPI
Thiamine HCl 200 mg 09/08/24 01:00 09/08/24 08:47
Thiamine (100 Mg/Ml) 2 Ml Vial IV 09/10/24 08:01 200 mg
Q12 SHILPI Administration
Thiamine HCl 100 mg 09/11/24 08:00
Thiamine 100 Mg Tablet PO 10/09/24 07:59
BID SHILPI
Home Medications
�Medication �Instructions �Recorded
acetaminophen 325 mg tablet 650 mg PO Q4HPRN PRN mild pain 03/31/24
(Tylenol)
alprazolam 0.5 mg tablet (Xanax) 0.5 mg PO DAILYPRN PRN anxiety 03/31/24
bupropion HCl 150 mg 24 hr tablet, 150 mg PO DAILY Mental 03/31/24
extended release (Wellbutrin XL) Health/Anxiety
glucosamine-chondroitin 250 mg-200 1 tab PO DAILY Supplement 03/31/24
mg tablet (Osteo Bi-Flex)
ropinirole 0.25 mg tablet 0.5 mg PO BID Restless leg syndrome 03/31/24
--- NOTE | 2024-09-08 13:46 | CM ---
CM reviewed chart, patient seen bedside, consults received for [employer] and Substance counseling. Patient presents with problems with balance. Patient resides independently in a multiple story home, three steps to enter. Patient reports she
can transition to first floor if needed. Patient reports her in January, patient very tearful, offered support. Patient reports she has been to local support groups, has support from her close friend Jose Manuel. Patient
reports having a cane and walker at home, denies VN/SNF hx. PCP confirmed Ly Gallardo, pharmacy [facility], confirms prescription coverage. Patient reports she has started the process of obtaining a POA, does not need [employer]
paperwork. Patient offered resources/[facility] support, patient declining. CM discussed PT recommendations of acute rehab, patient declining, reports she wants to go home. CM will continue to follow for all discharge planning needs.
Plan; therapy rec acute rehab, pt declining
--- NOTE | 2024-09-08 13:50 | W.PN.HOSP.TC ---
Today's Communication/Plan
-
Sinemet
Carotid ultrasound
Amlodipine
Aspirin, statin
Stop fluids
Monitor sodium
Assessment / Plan
Assessment / Plan
Physical Exam
General: Well Developed, Well Nourished, No Apparent Distress, Comfortable and Conversant
HEENT: Nose Appears Normal and Ears Appear Normal; No Moist mucous membranes
Respiratory: Clear
Cardiac: S1/S2 and Regular Rhythm
GI: Soft, Non Tender and Non Distended
Musculoskeletal: No Clubbing, No Cyanosis and No Edema
Skin: Warm and Dry
Neuro: Awake and Alert
Psych: Calm
#Falls
-most likely 2/2 to Parkinsons
-Neuro on Board
-Start Sinemet 25/100 TID before meals
-PT/OT
#Left sided deficits
#chronic stroke right anterior limb internal capsule would explain her left sided deficits. unknown to her
#HLD
-ASA, Statin
-Carotid US
-MRI reviewed
#Hyponatremia
-mild
-monitor
#Essential Hypertension
-Add Amlodipine
#H/O depression and anxiety on xanax
-outpt f/u
-continue xanax
#DVT ppx
hsq
Anticipated Discharge: Within 24 hours
Subjective/Interval History
-
Date of Service: September 08, 2024
no acute events
Objective Data
-
Vital Signs:
Vital Signs
Temp Pulse Resp BP Pulse Ox
98.0 F 82 16 160/87 92
09/08/24 07:00 09/08/24 07:00 09/08/24 07:00 09/08/24 07:00 09/08/24 07:00
I&O
09/07/24 09/08/24 09/09/24
06:59 06:59 06:59
Output Total 400 / 400
Balance -400 / -400
Review of Systems
-
History Source: Patient
All other systems: Not reviewed unless documented
Data Reviewed
-
CT Scan: Report Reviewed by me
MRI: Report Reviewed by me
Labs: Labs Reviewed by me
[2024-09-08 15:00] VITALS: BP 186/107
[2024-09-08] MEDS: SINEMET 25-100 1 TABLET PO (16:13)
--- NOTE | 2024-09-08 16:51 | PTCARENOTE ---
Patient with elevated blood pressures throughout shift. Amlodipine ordered, patient refusing, stating 'I don't need that. I'm not taking anything'. Patient also refusing aspirin and heparin, expressing concern about bruising. Educated patient on the
risk of refusal including stroke and [place], patient still refusing. made aware.
Med rec updated to include synthroid and sertraline. Orders placed.
[2024-09-08] MEDS: ZOLOFT 100 MG PO (17:23)
[2024-09-08] MEDS: MELATONIN 10 MG PO (21:40)
[2024-09-09 00:14] VITALS: BP 185/97
[2024-09-09 00:25] VITALS: BP 170/86
[2024-09-09] MEDS: XANAX 0.5 MG PO (03:14)
[2024-09-09] MEDS: SYNTHROID 50 MCG PO (05:24)
[2024-09-09 06:42] LABS: Hematocrit 35.9 % (37.0-47.0); Hemoglobin 11.7 g/dL (12.0-16.0); Mean Corp Hgb Conc. 32.6 g/dL (33.0-37.0); Mean Corpuscular Volume 84.3 fL (81.0-99.0); Platelet Count 303 10^3/uL (130-400); Red Cell Dist. Width 15.3 % (11.5-14.5)
[2024-09-09] MEDS: REQUIP 0.5 MG PO (06:55)
[2024-09-09] MEDS: SINEMET 25-100 1 TABLET PO ×2 (06:55→11:55)
[2024-09-09 07:11] LABS: ALT (SGPT) 50 U/L (0-35); AST (SGOT) 43 U/L (14-36); Albumin 4.2 g/dl (3.5-5.0); Alkaline Phosphatase 108 U/L (38-126); Blood Urea Nitrogen 16 mg/dl (7-17); Calcium 9.9 mg/dl (8.4-10.2); Carbon Dioxide 22 mmol/L (22-30); Chloride 104 mmol/L (98-107); Estimated Creatinine Clearance 70 ml/min; Glucose 120 mg/dl (70-99); Potassium 4.2 mmol/L (3.5-5.1); Sodium 134 mmol/L (135-145); Total Protein 6.9 g/dl (6.3-8.2); eGFR > 60.00
[2024-09-09 08:19] VITALS: BP 152/90
[2024-09-09] MEDS: WELLBUTRIN XL (24 hour extended release) 150 MG PO (08:21)
[2024-09-09] MEDS: FOLVITE 1 MG PO (08:22)
[2024-09-09] MEDS: ZOLOFT 100 MG PO (08:22)
[2024-09-09] MEDS: THIAMINE INJECTION IV (08:23)
--- NOTE | 2024-09-09 11:03 | W.PN.HOSP.TC ---
Today's Communication/Plan
-
Discharge today after carotid ultrasound
OP follow-up with neurologist
Assessment / Plan
Assessment / Plan
#Suspected Parkinson's disease
#Falls
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
-Neuro on Board, started patient on Sinemet 25/100 TID before meals
-Patient to follow-up as OP with neurology for Vega scan
-PT/OT
#Left sided deficits
#chronic CVA
#HLD
-right anterior limb internal capsule would explain her left sided deficits
-Was started on ASA, Statin for secondary prevention
-Carotid US ordered, will have performed before DC today
-MRI reviewed
#Hyponatremia
-mild, Na 134 this morning
-monitor
#Essential Hypertension
-Add Amlodipine
#H/O depression and anxiety on xanax
-outpt f/u
-continue xanax
DVT PPhx: SQH
CODE STAUTS: Full
Anticipated Discharge: Today
Subjective/Interval History
-
Date of Service: September 09, 2024
Seen and examined at bedside. No acute events reported overnight. AFVSS this morning
Patient states she did not sleep well, did not receive her ropinirole as she takes it at home, had restless legs
Patient states she is tired today, otherwise feels ready to go home and denies any new complaints
Objective Data
-
Labs:
Laboratory Results
09/09/24
06:10
WBC 9.4
Hgb 11.7 L
Hct 35.9 L
Plt Count 303
Sodium 134 L
Potassium 4.2
Chloride 104
Carbon Dioxide 22
BUN 16
Creatinine 0.6
Glucose 120 H
Calcium 9.9
Total Bilirubin 0.4
AST 43 H
ALT 50 H
Alkaline Phosphatase 108
Vital Signs:
Vital Signs
Temp Pulse Resp BP Pulse Ox
98.0 F 96 16 152/90 96
09/09/24 07:36 09/09/24 00:14 09/09/24 00:14 09/09/24 08:19 09/09/24 08:00
I&O
09/08/24 09/09/24 09/10/24
06:59 06:59 06:59
Intake Total 760 / 760
Output Total 400 / 400
Balance -400 / -400 760 / 760
Review of Systems
-
History Source: Patient
All other systems: Reviewed and negative
Physical Exam
-
General: Well Developed, Well Nourished and No Apparent Distress
HEENT: Normocephalic, Atraumatic and Moist Mucous Membranes
Respiratory: Clear to Auscultation and Non Labored Respirations; Negative Accessory Resp Muscle Use
Cardiac: Regular Rhythm and S1/S2; Negative Murmur, Rub, Carotid Bruits or Gallop
GI: Soft, Nontender, Nondistended and Normal Bowel Sounds
Musculoskeletal: No Clubbing, No Cyanosis and No Edema
Skin: Warm and Dry; Negative Rash
Neuro: AO x 3 and Nonfocal/Grossly Intact; Negative Tremors
Psych: Calm
Data Reviewed
-
Labs: Labs Reviewed by me and Discussed with Patient
--- NOTE | 2024-09-09 11:45 | CM ---
Addendum entered by Alma Giang 09/09/24 14:27:
Per nurse, patient is interested in OP PT. Hospitalist to provide script at d/c
Original Note:
Chart reviewed. Patient will d/c today. Patient previously declined rehab.
IMM verbally reviewed, copy provided, copy on chart
Plan: Home, no needs
[2024-09-09] MEDS: TYLENOL 650 MG PO (11:55)
--- NOTE | 2024-09-09 15:10 | W.DCSUMMARY ---
Discharge Summary
Discharge Data
Date of Admission: 09/07/24
Date of Discharge: 09/09/24
Total time spent discharging patient (in min): 33
-
Pending Results: Yes
Additional Pending Results:
Carotid Ultrasound
Hospital Course
Discharging Physician : Juan Manuel Fermin DO
Disposition : Home with OP PT
Principal Discharge diagnosis :
Progressive ataxia
Presumed Parkinson's disease
Chronic right frontal lobe CVA
Primary hypertension
Chronic Discharge diagnosis :
Metastatic melanoma s/p chemo
Cystocele
Rectocele
Recurrent UTI
Anxiety/depression
Hospital Course :
74-year-old female with history of metastatic melanoma s/p chemotherapy, cystocele, rectocele, UTIs, anxiety/depression that presented to the hospital with worsening progressive ataxia over multiple weeks that she describes as imbalance. States
that she was very wobbly, denies any recent trauma or other aggravating features. Had a fall at home and was unable to get herself off of the ground. 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
forgetfulness. Initial CT head without signs of acute infarct, ICH, mass effect or midline shift though did show small old infarct within the right frontal lobe white matter. Had MRI brain subsequently that was unremarkable for any acute findings.
Was evaluated by neurology who also had suspicion for Parkinson's disease based on the symptomatology. Neurology started patient on carbidopa levodopa 100/25 4 times daily and recommended OP follow-up for DaTscan. Was started on aspirin and high
intensity statin due to previous stroke and had carotid ultrasound performed prior to discharge. Recommended to follow-up with PCP and neurologist within 2 weeks of discharge from hospital. Additionally, was started on amlodipine for hypertension
at 5 mg daily dosing.
Consultants:
Neurologist: Trey Choi MD
Important imaging findings :
CT head without contrast (09/07/2024)
FINDINGS: Unenhanced CT imaging of the head reveals no findings to suggest recent infarction, intracranial hemorrhage, extra-axial fluid collection, mass effect or midline shift. Small old infarct is seen in the right frontal lobe deep white matter.
The ventricles, cisterns and sulci are slightly prominent commensurate with age. The brainstem and posterior fossa structures demonstrate no significant focal abnormality.
MRI brain without contrast (09/08/2024)
FINDINGS: Moderate age-related parenchymal atrophy. Small chronic infarct of the anterior limb of the right internal capsule. Small amount of T2/FLAIR hyperintense signal in the periventricular white matter of the bilateral cerebral hemispheres,
most compatible with minor chronic microangiopathic ischemia. No mass effect, midline shift, or extra axial collection. No abnormal signal intensity on diffusion-weighted images. The vascular flow voids at the skull base are unremarkable, as far as
visualized. Minimal mucosal thickening of the bilateral ethmoid and maxillary sinuses. The mastoid air cells are clear.
Procedure findings : N/A
Follow-up:
Follow-up with PCP within 1 to 2 weeks of discharge from hospital
Follow-up with neurologist within 2 weeks for follow-up of carotid ultrasound and ordering of DaTscan
Discharge Plan
-
Patient Disposition: Home (Routine Discharge)
Discharge Diagnosis/Procedures: Ataxia/falls
Suspected Parkinson's disease
Chronic CVA with left-sided motor deficits
Primary hypertension
Condition: Fair
Diet: Low Fat, Low Cholesterol and No added salt
Activity: As tolerated
Driving Restrictions: Not until seen by your Dr
Bathing Restrictions: None
Blood Work: Follow-up with your family doctor for repeat BMP and CBC
Others Tests: DaTscan with neurologist -- for diagnosis of Parkinson's disease
Other Services: PT
Activity Restrictions/Additional Instructions:
Schedule follow-up appointment with your family doctor, should be seen within 1 to 2 weeks of discharge from hospital
Follow-up with neurology, referral provided below. Contact their office to schedule an appointment
Referrals:
Paul Ambriz MD [Active, Neurology]
Referral Note: Call to schedule
Ly Gallardo DO [Primary Care Provider, Family Practice]
Additional Discharge Medication Instructions: Start amlodipine 5 mg daily
Start aspirin 81 mg daily (we urged you to take this despite history of bruising)
Start atorvastatin 40 mg nightly
Start folic acid 1 mg daily and thiamine 100 mg twice daily
Prescriptions:
New
aspirin 81 mg Tablet,Delayed Release (Dr/Ec)
81 mg PO DAILY 30 Days Qty: 30 0RF
folic acid 1 mg Tablet
1 mg PO DAILY Qty: 30 0RF
atorvastatin 40 mg Tablet
40 mg PO QPM 30 Days Qty: 30 0RF
amlodipine 5 mg Tablet
5 mg PO DAILY Qty: 30 0RF
thiamine mononitrate (vit B1) 100 mg Tablet
100 mg PO BID Qty: 60 0RF
Continued
acetaminophen [Tylenol] 325 mg Tablet
650 mg PO Q4HPRN PRN (Reason: mild pain)
alprazolam [Xanax] 0.5 mg Tablet
0.5 mg PO DAILYPRN PRN (Reason: anxiety)
ropinirole 0.25 mg Tablet
0.5 mg PO BID
glucosamine-chondroitin [Osteo Bi-Flex] 250-200 mg Tablet
1 tab PO DAILY
bupropion HCl [Wellbutrin XL] 150 mg Tablet Extended Release 24 Hr
150 mg PO DAILY
levothyroxine [Synthroid] 50 mcg Tablet
50 mcg PO DAILY
sertraline 100 mg Tablet
100 mg PO DAILY
melatonin 10 mg Tablet
10 mg PO HS
Discharge Orders:
Discharge Patient (As Directed); Ordered 09/09/24
Ordered By: Juan Manuel Fermin
Discharge Date and Time
Discharge Date/Time: 09/09/24 14:57
Print Language: BAHAMIAN
== END 2024-09-09 14:57 | disposition home or self-care (01) | DRG 57 ==
LOC: 4 WEST ACU 23:26
PROVIDERS: Internal Medicine; ADMITTING PHYSICIAN Internal Medicine; ATTENDING PHYSICIAN Internal Medicine; CONSULT PHYSICIAN Psychiatry & Neurology Clinical Neurophysiology; EMERGENCY PHYSICIAN Emergency Medicine; PRIMARYCARE PHYSICIAN Internal Medicine
DX: G20.A1 Parkinson's disease without dyskinesia, without mention of fluctuations (principal); F02.83 Dementia in other diseases classified elsewhere, unspecified severity, with mood disturbance; F02.84 Dementia in other diseases classified elsewhere, unspecified severity, with anxiety; F32.A Depression, unspecified; Z92.21 Personal history of antineoplastic chemotherapy; Z85.820 Personal history of malignant melanoma of skin; W18.30XA Fall on same level, unspecified, initial encounter; I10 Essential (primary) hypertension; Z86.73 Personal history of transient ischemic attack (TIA), and cerebral infarction without residual deficits; G25.81 Restless legs syndrome; Z79.890 Hormone replacement therapy; Z79.899 Other long term (current) drug therapy; Z82.0 Family history of epilepsy and other diseases of the nervous system
CPT/HCPCS: 70450; 70551; 80048; 80053; 80061; 81003; 82746; 83735; 84100; 85025; 85027; 92610; 93005; 93880; 94760; 97161; 97166; 97530; 99285

== ENCOUNTER 2024-09-11 22:59 | Observation (INO) | payer MEDICARE, SELFPAY ==
[2024-09-11 17:50] VITALS: BP 132/74
[2024-09-11 21:21] VITALS: BP 183/94
--- NOTE | 2024-09-11 21:58 | ED.GENMED ---
History of Present Illness
General
Chief Complaint: Fall
Source: patient and records
Exam Limitations: none
Time Seen by Provider: 09/11/24 21:05
History of Present Illness
History of Present Illness:
74yoF with a history of metastatic melanoma s/p chemotherapy and presumed Parkinson's disease presenting via EMS for evaluation after a fall. Patient was recently hospitalized from 09/07-09/09/24 for progressive ataxia. She was evaluated by neurology
and was diagnosed with presumed Parkinson's disease. She was initiated on Sinemet and discharged 2 days ago. Patient went to the pharmacy to picker tender her Sinemet but was told that the prescription was unable to be filled because it was not
prescribed by a neurologist. She had a fall this afternoon in which her legs gave out. She was unable to get up and EMS had to be called. She denies any injuries from the fall. No head strike or loss of consciousness. She is currently
ambulating with a quad cane. She lives with her daughter but daughter is not in the home consistently. She is scheduled to start outpatient physical therapy next week.
Past History
Past History
ED Past Medical History: Psychiatric (Anxiety/depression) and Other (UTIs, Melanoma, )
ED Past Surgical History: Gynecological (Tubal ligation), Tonsilectomy and Other (Mesh placed. Cystocel/Rectacel)
Social History
Tobacco: Non-smoker
Alcohol: None
Personal:
Living: with family
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
Family History
Family History: Other (Noncontributory)
Phy Exam
General Physical Exam
General Presentation: well appearing and no apparent distress
General Skin: warm and dry
General Habitus: elderly
General Mental: alert
ENT Exam
ENT Exam: normocephalic and other (No external signs of head trauma. No cervical spine tenderness.)
Eye Exam
Eye Exam: PERRL and conjunctiva normal
Cardiovascular Exam
Cardiovascular Exam: regular rate/rhythm
Pulmonary Exam
Pulmonary Exam: lungs clear, no respiratory distress, no rales, no crackles, no rhonchi and no wheezing
Neurological Exam
Neurological Exam: alert
[place] Coma Scale
Eye Opening: Spontaneous
Verbal Response: Oriented
Motor Response: Obeys Commands
GCS Total Score: 15
Skin Exam
Skin Exam: normal color and warm/dry
Psychiatric Exam
Psychiatric Exam: normal mood/affect
Course
Orders/Labs/Results
Orders:
Orders
09/11/24 22:21
Complete Blood Count/With Diff Urgent
Comprehensive Metabolic Panel Urgent
09/11/24 22:30
Heparin Pf [Heparin Lock Flush] 500 unit IV PER PROTOCOL
09/11/24 22:40
Admit/Transfer Patient As Directed
Co-Sign Provider:
Level of Care: Observation services
Assign to:: Medical/Surgical
Physician / Group: Flo Virgen
Diagnosis: gait dysfunction, parkinson's disease
PRN Pain Medication Management As Directed
May give lesser potent ordered pain med per pt: Yes
preference::
Protocol:: Medication orders for pain may be administered in a
manner that supports deferring to patient preference
when the pt is:
- Requesting an ordered lesser potent pain medication.
Least to most potent pain medications are defined
as: acetaminophen < NSAID < tramadol < opioids
(morphine, oxycodone, hydromorphone).
- Requesting a lesser dose of the same medication IF
ORDERED.
- Requesting a less intrusive route of administration
if both routes are prescribed by the provider (PO <
IV).
09/11/24 22:41
Code Status As Directed
Resuscitation Status: Full Code
09/12/24 00:05
Alprazolam [Xanax] 0.5 mg PO DAILYPRN PRN anxiety
09/12/24 00:05
Case Management Consult ONCE
Case Management Consult: Discharge Planning
Activity As Directed
Activity Level: As Tolerated
Vital Signs As Directed
Frequency: Per unit guidelines
Weight As Directed
Frequency: Once
Comment: on admission
Ot Eval And Treat Routine
Pt Eval And Treat Routine
Activity Level: As Tolerated
DX Deep Vein Thrombosis Video Routine
09/12/24 06:00
Levothyroxine [Synthroid] 50 mcg PO DAILY @ 0600
09/12/24 08:00
Aspirin Low Dose EC [Aspir Low (Enteric Coated)] 81 mg PO DAILY
Bupropion(24Hr)Extended Releas [WELLBUTRIN XL (24 hour extended release)] 150 mg PO DAILY
Carbidopa/Levodopa [Sinemet 25-100] 1 tablet PO TID
FOLic ACID [Folvite] 1 mg PO DAILY
Ropinirole [Requip] 0.5 mg PO BID
Sertraline HCl [Zoloft] 100 mg PO DAILY
Thiamine HCl [Vitamin B1] 100 mg PO BID
glucosamine-chondroitin [Osteo Bi-Flex] 1 tablet PO DAILY
09/12/24 Dinner
Regular
09/12/24 18:00
Atorvastatin [Lipitor] 40 mg PO QPM
Enoxaparin Sodium [Lovenox] 40 mg SC QPM
09/12/24 22:00
Melatonin 10 mg PO HS
Abnormal Lab Results
09/11/24
22:21
Hgb 11.8 L g/dL
(12.0-16.0)
Hct 35.3 L %
(37.0-47.0)
RDW 15.3 H %
(11.5-14.5)
Absolute Monos (auto) 1.0 H 10^3/uL
(0.1-0.6)
Lymphocytes % 18.0 L %
(20.5-51.1)
Monocytes % 10.8 H %
(1.7-9.3)
Sodium 131 L mmol/L
(135-145)
Chloride 97 L mmol/L
(98-107)
BUN 22 H mg/dl
(7-17)
Calcium 10.4 H mg/dl
(8.4-10.2)
AST 55 H U/L
(14-36)
ALT 69 H U/L
(0-35)
09/11/24 22:21
09/11/24 22:21
Vital Signs
Initial and Last Documented VS:
Initial Vital Signs
Temp Pulse Resp BP Pulse Ox
98.0 F 103 16 132/74 98
09/11/24 17:50 09/11/24 17:50 09/11/24 17:50 09/11/24 17:50 09/11/24 17:50
Last Documented Vital Signs
Temp Pulse Resp BP Pulse Ox
98.8 F 96 18 168/99 95
09/12/24 00:17 09/11/24 23:03 09/12/24 00:17 09/11/24 23:03 09/12/24 00:17
MDM/Problems Addressed
Differential Diagnosis Includes:
74yoF here after a fall this afternoon. Recently hospitalized for ataxia and diagnosed with presumed Parkinson's disease. Denies injuries from the fall. Vital signs stable. She is well-appearing in no distress. No external signs of trauma noted
on exam. Differential diagnosis includes but is not limited to: Mechanical fall, amatory dysfunction, failure to thrive, Parkinson's disease
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 Patient reports being unable to picker tender her Sinemet prescription at the pharmacy. At this point, no safe discharge plan in place. Will admit for case
management and PT consults.
*Pulse Oximetry
SaO2: 98
Oxygen Mode of Delivery: Room air
Patient hypoxic: no (98%)
*Critical Care Note
Total Time (30-74mins, 75-104mins- exclusive of procedures): Not Applicable
ED Attending Note
-
Portions of this chart may have been created with voice recognition software.� Occasional wrong word or��sound alike� substitutions may have occurred due to the inherent limitations of voice recognition software.
Discharge Plan
Departure
Patient Disposition: Admit
Date of Disposition: 09/11/24
Time of Disposition: 22:01
Presentation/result/management discussed w/ accepting MD/DO: Hospitalist
Discharge Problem:
Ambulatory dysfunction
Interventions
Interventions:
*Risk Screen - Suicide Last Done: 09/11/24 17:50
*General Assessment Last Done: 09/11/24 21:21
*Neglect/Abuse Screening Last Done: 09/11/24 17:50
*ED- Fall Risk Assessment Last Done: 09/11/24 21:21
*ED COVID-19 Vaccine History Last Done: 09/11/24 21:21
*Nursing Disposition Last Done: 09/11/24 23:59
ED-Musculoskeletal Assessment Last Done: 09/11/24 21:23
ED- Neurological Assessment Last Done: 09/11/24 21:23
ED-Skin Assessment Last Done: 09/11/24 21:23
Discharge Date and Time
Discharge Date/Time: 09/12/24 00:01
[2024-09-11 22:00] VITALS: BP 160/123
--- NOTE | 2024-09-11 22:03 | HPS.HSE ---
Family Physician
-
Family Physician:
Chief Complaint
-
mechanical fall
History of Present Illness
Patient is a 74-year-old female with past medical history significant for suspected Parkinson's disease, benign hypertension, anxiety/depression, restless leg syndrome, Hx CVA and Hx metastatic melanoma who presented to [facility] ED for evaluation s/p
fall. Patient with recent hospitalization from 09/07/2024-09/09/2024 for progressive ataxia with dx of suspected Parkinson's disease. Patient started on Sinemet and discharged home. She reports going to pharmacy to obtain medication and was told it
could not be filled as it was not prescribed by a neurologist. She had a fall this afternoon and was unable to get up and EMS was called. She denies any injuries, no head strike and no loss of consciousness. Patient refused SNF placement and was
discharged home where she lives with daughter, who is not consitently at home. She has outpatient PT scheduled to start next week.
Medical History
Past Medical History
Past Medical History: Reports Other
Additional Past Medical History:
suspected Parkinson's disease
benign hypertension
anxiety/depression
restless leg syndrome
Hx CVA
Hx metastatic melanoma
Past Surgical History: Reports Other
Additional Past Surgical History:
Pelvic Mesh for urinary incontinence/cystocele(2011)
Tubal with salpingectomy
Tonsillectomy (1971)
Rectocele repair(2018)
Left nephrectomy (08/15/2022)
wide excision melanoma/axillary dissection (10/25/21)
Social History
Tobacco: Non-smoker
Alcohol: Occasional
Drug: None
Personal:
Living: Alone
Employment: Retired
Family History
Family History: Not pertinent and Other (Father: Leukemia; Mom: Alzheimer's )
Allergies / Home Medications
Allergies reflects when Allergies were last updated in [employer].
Home Medications with original date entered in [employer]
Allergy/Medication List:
Allergies
Allergy/AdvReac Type Severity Reaction Status Date / Time
No Known Allergies Allergy Verified 09/11/24 22:04
Home Medications
alprazolam 0.5 mg tablet (Xanax) 0.5 mg PO DAILYPRN PRN anxiety 03/31/24
bupropion HCl 150 mg 24 hr tablet, extended release (Wellbutrin XL) 150 mg PO DAILY Mental Health/Anxiety 03/31/24
glucosamine-chondroitin 250 mg-200 mg tablet (Osteo Bi-Flex) 1 tab PO DAILY Supplement 03/31/24
ropinirole 0.25 mg tablet 0.5 mg PO BID Restless leg syndrome 03/31/24
levothyroxine 50 mcg tablet (Synthroid) 50 mcg PO DAILY 09/08/24
melatonin 10 mg tablet 10 mg PO HS 09/08/24
sertraline 100 mg tablet 100 mg PO DAILY 09/08/24
aspirin 81 mg tablet,delayed release 81 mg PO DAILY 1 month #30 tabs 09/09/24
folic acid 1 mg tablet 1 mg PO DAILY Supplement #30 tabs 09/09/24
thiamine mononitrate (vit B1) 100 mg tablet 100 mg PO BID Supplement #60 tabs 09/09/24
Review of Systems
-
History Source: Patient
Constitutional: Reports No Symptoms
EENT: Reports No Symptoms
Respiratory: Reports No Symptoms
Cardiac: Reports No Symptoms
Abdomen/GI: Reports No Symptoms
: Reports No Symptoms
Musculoskeletal: Reports Other ( tremors, mechanical fall )
Skin: Reports No Symptoms
Neurological: Reports No Symptoms
Endocrine: Reports No Symptoms
Hematologic/Lymphatic: Reports No Symptoms
Psych: Reports No Symptoms
Physical Exam
Vital Signs
Vital Signs
Temp Pulse Resp BP Pulse Ox
98.0 F 103 16 132/74 98
09/11/24 17:50 09/11/24 17:50 09/11/24 17:50 09/11/24 17:50 09/11/24 22:01
Physical Exam
General: Well Developed, Well Nourished and No Apparent Distress
HEENT: NormoCephalic, Moist mucous membranes and Atraumatic
Respiratory: Clear and Non Labored Respirations
Cardiac: S1/S2 and Regular Rhythm
GI: Soft, Non Tender, Non Distended and Normal Bowel Sounds
Rectal: Deferred by Provider
Musculoskeletal: No Clubbing, No Cyanosis and No Edema; No Normal Gait & Station
Skin: Warm and IV/Catheter Site (LCW port access)
Neuro: AO x 3 and Nonfocal/grossly intact
Psych: Calm and Intact Judgment/Insight
Data Reviewed
-
Lab Data: Labs Reviewed by me
Impression/Plan
-
IMPRESSION/PLAN:
#mechanical fall
#suspected Parkinson's disease
- admit to med/surg
- Consult PT/OT
- Consult case management
- Sinemet 25/100 TID
- follow up with neurology out patient
#benign hypertension
- continue amlodipine
#anxiety/depression
- continue continue bupropion, alprazolam and sertraline
#restless leg syndrome
- continue ropinirole
#hypothyroidism
- continue levothyroxine
#Hx CVA
- continue aspirin and atorvastatin
#Hx metastatic melanoma
Code status: full code
DV prophylaxis: lovenox sq
[2024-09-11 22:28] LABS: Hematocrit 35.3 % (37.0-47.0); Hemoglobin 11.8 g/dL (12.0-16.0); Mean Corp Hgb Conc. 33.4 g/dL (33.0-37.0); Mean Corpuscular Volume 82.3 fL (81.0-99.0); Nucleated Red Blood Cells % 0 %; Platelet Count 266 10^3/uL (130-400); Red Cell Dist. Width 15.3 % (11.5-14.5)
--- NOTE | 2024-09-11 22:37 | W.PN.UPDATE ---
Update Note
Progress Note Update
I saw and examined the patient.
The SOAKERS SUPERVISOR Cirilo note was reviewed and I agree with the note.
Comment: 74 y/o F, PMH of CVA, metastatic melanoma, HTN with recent admission for ataxia with presumptive diagnosis of Parkinson disease (discharged on Sinemet) presents back to ER For fall. She reports she was unable to get her prescribed meds.
Today her legs 'gave out'. EMS was called. No injuries reported. No syncope, head trauma or LOC. No other complaints.
General: Well Developed, Well Nourished and No Apparent Distress
HEENT: NormoCephalic, Moist mucous membranes and Atraumatic
Respiratory: Clear and Non Labored Respirations
Cardiac: S1/S2 and Regular Rhythm
GI: Soft, Non Tender, Non Distended and Normal Bowel Sounds
Rectal: Deferred by Provider
Musculoskeletal: No Clubbing, No Cyanosis and No Edema; No Normal Gait & Station
Skin: Warm and IV/Catheter Site (LCW port access)
Neuro: AO x 3 and Nonfocal/grossly intact
Psych: Calm and Intact Judgment/Insight
Assessment:
Mechanical Fall
presumptive diagnosis of Parkinson disease, ambulatory dysfunction
- resume Sinemet. CM consult to verify issues in obtaining Sinemet
- PT/OT - noted patient refused rehab last admission
Rest of plan per GEM Kerr Note
[2024-09-11 22:54] LABS: ALT (SGPT) 69 U/L (0-35); AST (SGOT) 55 U/L (14-36); Albumin 4.3 g/dl (3.5-5.0); Alkaline Phosphatase 97 U/L (38-126); Blood Urea Nitrogen 22 mg/dl (7-17); Calcium 10.4 mg/dl (8.4-10.2); Carbon Dioxide 25 mmol/L (22-30); Chloride 97 mmol/L (98-107); Glucose 86 mg/dl (70-99); Potassium 3.7 mmol/L (3.5-5.1); Sodium 131 mmol/L (135-145); Total Protein 7.4 g/dl (6.3-8.2); eGFR > 60.00
[2024-09-11 23:03] VITALS: BP 168/99
[2024-09-11 23:49] VITALS: BMI 26.0
[2024-09-12] VITALS (7 sets, daily range): BP systolic 144–179; BP diastolic 76–107; PULSE 85–88; O2SAT 96–97; BMI 25.5
[2024-09-12] MEDS: XANAX 0.5 MG PO (01:09)
--- NOTE | 2024-09-12 01:10 | PTCARENOTE ---
Received patient from ED via stretcher. Patient ambulated from stretcher to bed while holding onto 2 staff members. Shuffling to bed with extremely unsteady gait. AAOx3, forgetful, stuttered and garbled speech. Patient is extremely anxious, restless
and tearful at times. States, 'I'm all out of sorts'. PRN xanax given. Oriented patient to room and placed call quispe within reach.
[2024-09-12] MEDS: REQUIP 0.5 MG PO ×3 (02:18→17:30)
--- NOTE | 2024-09-12 03:10 | W.PN.UPDATE ---
Update Note
Progress Note Update
Per RN, while doing admission assessment, patient admitted to ETOH use. [facility] protocol ordered.
[2024-09-12] MEDS: ATIVAN 1 MG PO (03:36)
[2024-09-12] MEDS: SYNTHROID 50 MCG PO (06:19)
[2024-09-12] MEDS: FOLVITE 1 MG PO (09:09)
[2024-09-12] MEDS: VITAMIN B1 100 MG PO ×2 (09:09→20:57)
[2024-09-12] MEDS: SINEMET 25-100 1 TABLET PO ×3 (09:09→21:00)
[2024-09-12] MEDS: ZOLOFT 100 MG PO (09:09)
[2024-09-12] MEDS: ASPIR LOW (ENTERIC COATED) 81 MG PO (09:09)
[2024-09-12] MEDS: WELLBUTRIN XL (24 hour extended release) 150 MG PO (09:09)
[2024-09-12] MEDS: NSS 1000 IV (09:43)
--- NOTE | 2024-09-12 12:17 | W.PN.HOSP.TC ---
Today's Communication/Plan
-
IV fluids
PT/OT
Start amlodipine
Assessment / Plan
Assessment / Plan
#Suspected Parkinson's disease
#Mechanical falls
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
-Neuro on Board, started patient on Sinemet 25/100 TID before meals
-Patient to follow-up as OP with neurology for Vega scan
-PT/OT, plan for SNF
#Left sided deficits
#chronic CVA
#HLD
-right anterior limb internal capsule would explain her left sided deficits
-Was started on ASA, Statin for secondary prevention
-Carotid US ordered, will have performed before DC today
-MRI reviewed
#Hyponatremia
#Hypercalcemia
-mild, Na 134 this morning and calcium 10.4
-Suspect mild hypovolemia, on maintenance IVF
-monitor BMP
#Essential Hypertension
-Add Amlodipine 5 mg to start now
#H/O depression and anxiety on xanax
-outpt f/u
-continue xanax
DVT PPhx: SQH
CODE STAUTS: Full
Anticipated Discharge: 24 - 48 hours
Subjective/Interval History
-
Date of Service: September 12, 2024
Seen and examined at bedside. No acute events reported overnight. AFVSS morning
Calcium 10.4 this morning, sodium stable.
Patient denies any new complaints
Objective Data
-
Vital Signs:
Vital Signs
Temp Pulse Resp BP Pulse Ox
98.0 F 89 16 179/104 96
09/12/24 11:14 09/12/24 11:14 09/12/24 11:14 09/12/24 11:14 09/12/24 11:47
I&O
09/11/24 09/12/24 09/13/24
06:59 06:59 06:59
Intake Total 240 / 240
Balance 240 / 240
Review of Systems
-
History Source: Patient
All other systems: Reviewed and negative
Physical Exam
-
General: Well Developed, Well Nourished, No Apparent Distress and Other (Frail-appearing)
HEENT: Normocephalic, Atraumatic, Moist Mucous Membranes and Anicteric
Respiratory: Clear to Auscultation and Non Labored Respirations; Negative Accessory Resp Muscle Use
Cardiac: Regular Rhythm and S1/S2; Negative Murmur, Rub or Gallop
GI: Soft, Nontender, Nondistended and Normal Bowel Sounds
Musculoskeletal: No Clubbing, No Cyanosis and No Edema
Skin: Warm and Dry; Negative Rash
Neuro: AO x 3, Tremors, Central Nerve's Intact and Other (Chronic unilateral deficits, no new FND)
Psych: Calm
Data Reviewed
-
Labs: Labs Reviewed by me, Discussed with Nurse and Discussed with Patient
[2024-09-12] MEDS: NORVASC 5 MG PO (13:12)
--- NOTE | 2024-09-12 16:31 | CM ---
Alert awake oriented patient who lives with her daughter Neha in a 2 story home with 2 steps to enter and 12 steps to bath/bedroom.
She is independent in driving and in all activities of daily living.Offered VN she declined.FERRER letter given reviewed signed on chart.
She uses quad cane
Never had VN/SNF
Pharmacy [facility]
PCP Dr Gallardo
PLAN Home no needs
--- NOTE | 2024-09-12 16:34 | CM ---
lives with her daughter Neha in a 2 story home with 2 steps to enter and 12 steps to bath/bedroom.She is independent in driving and in all activities of daily living.Offered VN she declined.FERRER letter given reviewed signed on chart.
She uses quad cane
Never had VN/SNF
Pharmacy [facility]
PCP Dr Gallardo
PLAN Home no needs
[2024-09-12] MEDS: LIPITOR 40 MG PO (16:43)
[2024-09-12] MEDS: LIPITOR PO ×2 (16:43→16:48)
[2024-09-12] MEDS: MELATONIN 10 MG PO (20:57)
--- NOTE | 2024-09-12 22:46 | W.PN.UPDATE ---
Update Note
Progress Note Update
Received call from nursing at 2000 tonight as patient insisting on leaving AMA. Spent about 50 minutes talking with patient. Daughter working overnight and would not be home. She is crying about how she is unable to sleep and is grieving for her
who in January, how her only daughter 'hates her' and she misses her horse named Nutrition Specialist. She is attending grief counseling. Agreed she will stay. She may benefit from pastoral care visit.
[2024-09-13] MEDS: NSS 1000 IV (01:29)
[2024-09-13] MEDS: REQUIP 0.5 MG PO ×2 (04:24→13:13)
[2024-09-13] MEDS: SYNTHROID 50 MCG PO (04:24)
--- NOTE | 2024-09-13 04:57 | PTCARENOTE ---
Patient agitated throughout the night, adamant about wanting to leave AMA. Patient expressed being upset over fall precautions and stating multiple times, 'I'm a completely independent person' and 'no one listens to the patient here'. Educated
patient on the reason for fall precautions and provided emotional support. SEAFOOD MANAGER notified and up to the floor to talk with patient for 50 minutes. After speaking with INSTRUMENTATION FITTER, patient agreeable to stay the night. Patient's daughter Neha updated over the
phone. Patient continues to be uncooperative with care, anxious, setting off bed alarm, and stating she wants to go home. INSTRUMENTATION FITTER made aware that patient would like her requip ordered PRN and IV fluids discontinued. Orders updated and requip given. Plan
of care ongoing.
--- NOTE | 2024-09-13 05:14 | VATNOTE ---
CALLED BY PCN THAT PT REQUESTING SUBQ PRT DRESSING BE CHANGED D/T ITCHING. WHEN I ARRIVED, PT DEMANDED THAT PORT BE DEACCESSED PROMPTLY. CONVINCED PT TO ALLOW ME TO DRAW LABS PRIOR TO DEACCESSING PRT AND PT AGREED. PRT DEACCESSED AND FLUSHED PER
PROTOCOL. PCN AWARE.
[2024-09-13 05:26] LABS: Hematocrit 33.6 % (37.0-47.0); Hemoglobin 10.9 g/dL (12.0-16.0); Mean Corp Hgb Conc. 32.4 g/dL (33.0-37.0); Mean Corpuscular Volume 83.0 fL (81.0-99.0); Nucleated Red Blood Cells % 0 %; Platelet Count 255 10^3/uL (130-400); Red Cell Dist. Width 14.9 % (11.5-14.5)
[2024-09-13 06:38] LABS: Blood Urea Nitrogen 20 mg/dl (7-17); Calcium 9.8 mg/dl (8.4-10.2); Carbon Dioxide 24 mmol/L (22-30); Chloride 102 mmol/L (98-107); Estimated Creatinine Clearance 67 ml/min; Glucose 97 mg/dl (70-99); Potassium 4.0 mmol/L (3.5-5.1); Sodium 132 mmol/L (135-145); eGFR > 60.00
[2024-09-13 07:11] VITALS: BP 158/108
[2024-09-13] MEDS: FOLVITE 1 MG PO (08:24)
[2024-09-13] MEDS: VITAMIN B1 100 MG PO (08:24)
[2024-09-13] MEDS: SINEMET 25-100 1 TABLET PO (08:24)
[2024-09-13] MEDS: NORVASC 5 MG PO (08:24)
[2024-09-13] MEDS: ASPIR LOW (ENTERIC COATED) 81 MG PO (08:24)
[2024-09-13] MEDS: ZOLOFT 100 MG PO (08:31)
[2024-09-13] MEDS: WELLBUTRIN XL (24 hour extended release) 150 MG PO (08:31)
--- NOTE | 2024-09-13 10:15 | CM ---
Per Attending, patient refused discharge to SNF per PT recommendation
Spoke with patient's daughter, she reported that she has 1st floor set up and equipment to care for her mother at home.
Will Discharge to home with home health services; discussed agency options with daughter; referral sent to [facility] via [facility]
Plan: Discharge to home today; daughter will provide transport home
--- NOTE | 2024-09-13 11:17 | W.PN.HOSP.TC ---
Today's Communication/Plan
-
Discharge with home care
Assessment / Plan
Assessment / Plan
#Suspected Parkinson's disease
#Mechanical falls
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
-Neuro on Board, started patient on Sinemet 25/100 TID before meals
-Patient to follow-up as OP with neurology for Vega scan
-PT/OT, plan for SNF
#Left sided deficits
#chronic CVA
#HLD
-right anterior limb internal capsule would explain her left sided deficits
-Was started on ASA, Statin for secondary prevention
-Carotid US ordered, will have performed before DC today
-MRI reviewed
#Hyponatremia
#Hypercalcemia
-mild, Na 134 this morning and calcium 10.4
-Suspect mild hypovolemia, on maintenance IVF
-monitor BMP
#Essential Hypertension
-Add Amlodipine 5 mg to start now
#H/O depression and anxiety on xanax
-outpt f/u
-continue xanax
DVT PPhx: SQH
CODE STAUTS: Full
Disposition: Patient requesting to leave AMA or be discharged home. Now refusing SNF placement. Patient is AAO x 3 and cognitively capable to make her own medical decisions. I have encouraged her to pursue rehab though ultimately it is her
decision on whether she chooses to go to SNF. Will speak with case management about arranging visiting nurse and home care. Educated patient on risks of falls, avoiding stairs.
Anticipated Discharge: Today
Subjective/Interval History
-
Date of Service: September 13, 2024
Seen and examined at the bedside. Overnight patient asked to leave AMA, daughter unable to pick her up. AFVSS this morning
Patient still wants to leave AMA or be discharged. Now refusing SNF. Case management spoke with her daughter who states that she will care for her at home. CM to facilitate home PT and visiting nurse. Patient to attempt living on first floor of
her unit to avoid stairs
Denies any new medical complaints
Objective Data
-
Labs:
Laboratory Results
09/13/24
04:48
WBC 7.2
Hgb 10.9 L
Hct 33.6 L
Plt Count 255
Sodium 132 L
Potassium 4.0
Chloride 102
Carbon Dioxide 24
BUN 20 H
Creatinine 0.6
Glucose 97
Calcium 9.8
Vital Signs:
Vital Signs
Temp Pulse Resp BP Pulse Ox
98.4 F 86 18 158/108 95
09/13/24 07:11 09/13/24 07:11 09/13/24 07:11 09/13/24 07:11 09/13/24 07:11
I&O
09/12/24 09/13/24 09/14/24
06:59 06:59 06:59
Intake Total 240 / 240 1080 / 1080
Output Total 350 / 350
Balance 240 / 240 730 / 730
Review of Systems
-
History Source: Patient
All other systems: Reviewed and negative
Physical Exam
-
General: Well Developed, Well Nourished, No Apparent Distress and Other (Frail-appearing)
HEENT: Normocephalic, Atraumatic and Moist Mucous Membranes
Respiratory: Clear to Auscultation and Non Labored Respirations; Negative Accessory Resp Muscle Use
Cardiac: Regular Rhythm and S1/S2; Negative Murmur, Rub or Gallop
GI: Soft, Nontender, Nondistended and Normal Bowel Sounds
Musculoskeletal: No Clubbing, No Cyanosis and No Edema
Skin: Warm, Dry and Normal Turgor; Negative Rash
Neuro: AO x 3, Tremors, Central Nerve's Intact and Other (Chronic left-sided deficits, no new FND)
Psych: Calm
Data Reviewed
-
Labs: Labs Reviewed by me, Discussed with Nurse and Discussed with Patient
--- NOTE | 2024-09-13 13:06 | W.DCSUMMARY ---
Discharge Summary
Discharge Data
Date of Admission: 09/11/24
Date of Discharge: 09/13/24
Total time spent discharging patient (in min): 31
-
Pending Results: No
Hospital Course
Discharging Physician : Juan Manuel Fermin DO
Disposition : Home care
Principal Discharge diagnosis :
Mechanical fall/ambulatory dysfunction
Presumed Parkinson's disease
Mild hyponatremia
Mild hypercalcemia
Chronic Discharge diagnosis :
Hypertension
Anxiety/depression
History of CVA with left residual deficits
History of stage IV melanoma
Hospital Course :
74-year-old female that presented to the hospital after mechanical fall at home. Recently was discharged from the hospital with suspected Parkinson's disease, refused rehab at time of discharge in favor of disposition for home. Had mechanical fall
2 days after her discharge and reconsidered rehab placement. Trauma workup was unremarkable upon arrival. Was noted to have mild hyponatremia and hypercalcemia. Hyponatremia stable, hypercalcemia resolved with light IV fluids. Was evaluated by
PT who did recommend SNF placement however patient had change of mind and requested discharge home with VNA and home PT. Case management discussed with daughter, who states that she was willing to take care of her mother. Patient reportedly to
live on first story of living unit. Home care with VN and PT is established. Recommend patient follows up with neurologist for DaTscan and formal diagnosis of Parkinson's disease. Prescription sent for carbidopa levodopa, amlodipine.
Important imaging findings : N/A
Procedure findings : N/A
Follow-up :
-Family doctor within 1 week
-Neurologist within 2 weeks
Discharge Plan
-
Patient Disposition: Home with Home Care
Discharge Diagnosis/Procedures: Mechanical fall
Ambulatory dysfunction
Suspected Parkinson's disease
Hyponatremia, mild
Hypocalcemia, mild
Dehydration
Condition: Fair
Diet: No restrictions
Activity: As tolerated
Driving Restrictions: Not until seen by your Dr
Bathing Restrictions: None
Blood Work: Follow-up with your family doctor for repeat BMP and CBC
Others Tests: Follow-up with neurology for Vega scan
Other Services: VN and PT
Activity Restrictions/Additional Instructions:
Schedule follow-up appointment with your family doctor, should be seen in office within 1 week of discharge from hospital
Follow-up with neurologist for Vega scan and further care related to possible Parkinson's disease
Referrals:
Paul Ambriz MD [Active, Neurology]
Ly Gallardo DO [Family Provider, Family Practice]
Prescriptions:
New
amlodipine 5 mg Tablet
5 mg PO DAILY 30 Days Qty: 30 0RF
ropinirole 0.25 mg Tablet
0.5 mg PO TID PRN (Reason: restless legs) 30 Days Qty: 180 0RF
carbidopa-levodopa 25-100 mg Tablet
1 tab PO TID 30 Days Qty: 90 0RF
Continued
alprazolam [Xanax] 0.5 mg Tablet
0.5 mg PO DAILYPRN PRN (Reason: anxiety)
glucosamine-chondroitin [Osteo Bi-Flex] 250-200 mg Tablet
1 tab PO DAILY
bupropion HCl [Wellbutrin XL] 150 mg Tablet Extended Release 24 Hr
150 mg PO DAILY
levothyroxine [Synthroid] 50 mcg Tablet
50 mcg PO DAILY
sertraline 100 mg Tablet
100 mg PO DAILY
melatonin 10 mg Tablet
10 mg PO HS
aspirin 81 mg Tablet,Delayed Release (Dr/Ec)
81 mg PO DAILY 30 Days Qty: 30 0RF
folic acid 1 mg Tablet
1 mg PO DAILY Qty: 30 0RF
thiamine mononitrate (vit B1) 100 mg Tablet
100 mg PO BID Qty: 60 0RF
Discontinued
ropinirole 0.25 mg Tablet
0.5 mg PO BID
Discharge Orders:
Discharge Patient (As Directed); Ordered 09/13/24
Ordered By: Juan Manuel Fermin
Discharge Date and Time
Print Language: HUNGARIAN
--- NOTE | 2024-09-13 14:39 | PTCARENOTE ---
Patient refused 3pm vital signs.
== END 2024-09-13 15:11 | disposition home health service (06) ==
LOC: 4 EAST ACU 22:59
PROVIDERS: Emergency Medicine; Nurse Practitioner Family; ADMITTING PHYSICIAN Internal Medicine; ATTENDING PHYSICIAN Internal Medicine; EMERGENCY PHYSICIAN Emergency Medicine; FAMILY PHYSICIAN Internal Medicine
DX: G20.A1 Parkinson's disease without dyskinesia, without mention of fluctuations (principal); R26.2 Difficulty in walking, not elsewhere classified; F32.A Depression, unspecified; F41.9 Anxiety disorder, unspecified; E03.9 Hypothyroidism, unspecified; I10 Essential (primary) hypertension; G25.81 Restless legs syndrome; E78.5 Hyperlipidemia, unspecified; E87.1 Hypo-osmolality and hyponatremia; E83.52 Hypercalcemia; I69.30 Unspecified sequelae of cerebral infarction; E86.0 Dehydration; W18.39XA Other fall on same level, initial encounter; Y93.9 Activity, unspecified; Y92.009 Unspecified place in unspecified non-institutional (private) residence as the place of occurrence of the external cause; Z86.73 Personal history of transient ischemic attack (TIA), and cerebral infarction without residual deficits; Z90.5 Acquired absence of kidney; Z79.890 Hormone replacement therapy; Z87.440 Personal history of urinary (tract) infections; Z92.21 Personal history of antineoplastic chemotherapy; Z85.820 Personal history of malignant melanoma of skin; Z79.82 Long term (current) use of aspirin; Z98.51 Tubal ligation status; Z63.4 Disappearance and death of family member
CPT/HCPCS: 80048; 80053; 80306; 80307; 82077; 85025; 97116; 97129; 97163; 97167; 99285; G0378

== ENCOUNTER 2024-09-15 16:29 | Observation (INO) | payer MEDICARE, SELFPAY ==
[2024-09-14 22:13] VITALS: BP 166/101
--- NOTE | 2024-09-14 23:40 | ED.GENMED ---
History of Present Illness
<Eladio Carlin MD - Last Filed: 09/15/24 01:37>
General
Chief Complaint: Weakness
Source: patient and family
Exam Limitations: none
Time Seen by Provider: 09/14/24 23:00
Nursing documentation reviewed up to this point in time: agreed with
History of Present Illness
History of Present Illness:
Patient discharged from the hospital yesterday afternoon after being evaluated secondary to multiple falls, likely due to Parkinson disease, returns to ED today secondary to ongoing generalized weakness and difficulty ambulating. Prior to
discharge, rehab was recommended, which patient had declined at that time. Denies new injury. Denies fever or chills. Patient has been able to eat at home since discharge.
Past History
<Eladio Carlin MD - Last Filed: 09/15/24 01:37>
Past History
ED Past Medical History: Psychiatric (Anxiety/depression) and Other (UTIs, Melanoma, )
ED Past Surgical History: Gynecological (Tubal ligation), Tonsilectomy and Other (Mesh placed. Cystocel/Rectacel)
Social History
Tobacco: Non-smoker
Alcohol: None
Personal:
Living: with family
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
Family History
Family History: Other (Noncontributory)
Review of Systems
<Eladio Carlin MD - Last Filed: 09/15/24 01:37>
Review of Systems
Allergies reviewed?: Yes
All Other Systems: ROS reviewed and negative except as documented in HPI and ROS
Constitutional: Reports no symptoms
ABD/GI: Reports no symptoms
: Reports no symptoms
Musculoskeletal: Reports no symptoms
Skin: Reports no symptoms
Neurological: Reports weakness
Phy Exam
<Eladio Carlin MD - Last Filed: 09/15/24 01:37>
Physical Exam
Physical Exam:
Physical Exam
General: no apparent distress, not acutely ill. afebrile
Head: nc/at. eomi
Neck: supple. no meningeal signs.
Heart: s1/s2 regular rate and rhythm
Lungs: no acute respiratory distress. clear bilaterally
Abdomen: normal bowel sounds. not tender.
Neuro: alert and oriented x 3. no focal neurological deficits
Skin: no rash
Psychiatric: well kept. interactive and cooperative
Extremities: no edema. no calf tenderness.
Course
<Eladio Carlin MD - Last Filed: 09/15/24 01:37>
Orders/Labs/Results
Orders:
Orders
09/14/24 23:40
Case Management Consult ONCE
Case Management Consult: Discharge Planning
09/15/24 08:54
Acetaminophen [Tylenol] 650 mg .ROUTE .STK-MED ONE
09/15/24 08:56
Acetaminophen [Tylenol] 650 mg PO NOW STA
09/15/24 13:33
Urinalysis Reflex To Culture Urgent
09/15/24 14:58
Carbidopa/Levodopa [Sinemet 25-100] 1 tablet PO NOW STA
09/15/24 15:00
Ropinirole [Requip] 0.5 mg PO ONCE ONE
09/15/24 15:08
Comprehensive Metabolic Panel Urgent
Magnesium Urgent
Phos [Phosphorus] Urgent
TSH Reflex To Free T4 Urgent
09/15/24 15:09
Complete Blood Count/With Diff Urgent
09/15/24 15:35
Admit/Transfer Patient As Directed
Co-Sign Provider:
Level of Care: Observation services
Assign to:: Medical/Surgical
Physician / Group: boy bowens
Diagnosis: Acute on chronic ambulatory dysfunction
Code Status As Directed
Resuscitation Status: Full Code
09/15/24 15:36
PRN Pain Medication Management As Directed
May give lesser potent ordered pain med per pt: Yes
preference::
Protocol:: Medication orders for pain may be administered in a
manner that supports deferring to patient preference
when the pt is:
- Requesting an ordered lesser potent pain medication.
Least to most potent pain medications are defined
as: acetaminophen < NSAID < tramadol < opioids
(morphine, oxycodone, hydromorphone).
- Requesting a lesser dose of the same medication IF
ORDERED.
- Requesting a less intrusive route of administration
if both routes are prescribed by the provider (PO <
IV).
Abnormal Lab Results
09/15/24 09/15/24
15:08 15:09
Hgb 11.9 L g/dL
(12.0-16.0)
Hct 36.1 L %
(37.0-47.0)
RDW 14.9 H %
(11.5-14.5)
Absolute Lymphs (auto) 1.1 L 10^3/uL
(1.2-3.4)
Absolute Monos (auto) 0.8 H 10^3/uL
(0.1-0.6)
Lymphocytes % 13.7 L %
(20.5-51.1)
Monocytes % 10.3 H %
(1.7-9.3)
Sodium 132 L mmol/L
(135-145)
Glucose 109 H mg/dl
(70-99)
Calcium 10.5 H mg/dl
(8.4-10.2)
AST 43 H U/L
(14-36)
ALT 40 H U/L
(0-35)
09/15/24 15:09
09/15/24 15:08
Vital Signs
Initial and Last Documented VS:
Initial Vital Signs
Temp Pulse Resp BP Pulse Ox
36.5 C 90 18 166/101 98
09/14/24 22:13 09/14/24 22:13 09/14/24 22:13 09/14/24 22:13 09/14/24 22:13
Last Documented Vital Signs
Temp Pulse Resp BP Pulse Ox
36.9 C 88 17 139/89 99
09/15/24 04:00 09/15/24 11:29 09/15/24 11:29 09/15/24 11:29 09/15/24 11:29
<Arnie Dean MD - Last Filed: 09/15/24 16:07>
Orders/Labs/Results
Orders:
Orders
09/14/24 23:40
Case Management Consult ONCE
Case Management Consult: Discharge Planning
09/15/24 08:54
Acetaminophen [Tylenol] 650 mg .ROUTE .STK-MED ONE
09/15/24 08:56
Acetaminophen [Tylenol] 650 mg PO NOW STA
09/15/24 13:33
Urinalysis Reflex To Culture Urgent
09/15/24 14:58
Carbidopa/Levodopa [Sinemet 25-100] 1 tablet PO NOW STA
09/15/24 15:00
Ropinirole [Requip] 0.5 mg PO ONCE ONE
09/15/24 15:08
Comprehensive Metabolic Panel Urgent
Magnesium Urgent
Phos [Phosphorus] Urgent
TSH Reflex To Free T4 Urgent
09/15/24 15:09
Complete Blood Count/With Diff Urgent
09/15/24 15:35
Admit/Transfer Patient As Directed
Co-Sign Provider:
Level of Care: Observation services
Assign to:: Medical/Surgical
Physician / Group: boy bowens
Diagnosis: Acute on chronic ambulatory dysfunction
Code Status As Directed
Resuscitation Status: Full Code
09/15/24 15:36
PRN Pain Medication Management As Directed
May give lesser potent ordered pain med per pt: Yes
preference::
Protocol:: Medication orders for pain may be administered in a
manner that supports deferring to patient preference
when the pt is:
- Requesting an ordered lesser potent pain medication.
Least to most potent pain medications are defined
as: acetaminophen < NSAID < tramadol < opioids
(morphine, oxycodone, hydromorphone).
- Requesting a lesser dose of the same medication IF
ORDERED.
- Requesting a less intrusive route of administration
if both routes are prescribed by the provider (PO <
IV).
Abnormal Lab Results
09/15/24 09/15/24
15:08 15:09
Hgb 11.9 L g/dL
(12.0-16.0)
Hct 36.1 L %
(37.0-47.0)
RDW 14.9 H %
(11.5-14.5)
Absolute Lymphs (auto) 1.1 L 10^3/uL
(1.2-3.4)
Absolute Monos (auto) 0.8 H 10^3/uL
(0.1-0.6)
Lymphocytes % 13.7 L %
(20.5-51.1)
Monocytes % 10.3 H %
(1.7-9.3)
Sodium 132 L mmol/L
(135-145)
Glucose 109 H mg/dl
(70-99)
Calcium 10.5 H mg/dl
(8.4-10.2)
AST 43 H U/L
(14-36)
ALT 40 H U/L
(0-35)
09/15/24 15:09
09/15/24 15:08
Vital Signs
Initial and Last Documented VS:
Initial Vital Signs
Temp Pulse Resp BP Pulse Ox
36.5 C 90 18 166/101 98
09/14/24 22:13 09/14/24 22:13 09/14/24 22:13 09/14/24 22:13 09/14/24 22:13
Last Documented Vital Signs
Temp Pulse Resp BP Pulse Ox
36.9 C 88 17 139/89 99
09/15/24 04:00 09/15/24 11:29 09/15/24 11:29 09/15/24 11:29 09/15/24 11:29
<Eladio Carlin MD - Last Filed: 09/15/24 01:37>
MDM/Problems Addressed
MDM/Problems Addressed:
As patient was discharged from the hospital yesterday, after recent multiple admissions with extensive workup, I do not feel that patient will benefit from another inpatient evaluation. No acute changes in patient's condition noted by patient and
her daughter. As such, will consult case management for evaluation, for potential SNF placement
<Eladio Carlin MD - Last Filed: 09/15/24 01:37>
*Pulse Oximetry
SaO2: 98
Oxygen Mode of Delivery: Room air
<Arnie Dean MD - Last Filed: 09/15/24 16:07>
*Pulse Oximetry
Patient hypoxic: no (98%)
*Critical Care Note
Total Time (30-74mins, 75-104mins- exclusive of procedures): Not Applicable
ED Attending Note
<Eladio Carlin MD - Last Filed: 09/15/24 01:37>
-
Portions of this chart may have been created with voice recognition software.� Occasional wrong word or��sound alike� substitutions may have occurred due to the inherent limitations of voice recognition software.
<Arnie Dean MD - Last Filed: 09/15/24 16:07>
ED Attending Note
ED Attending Note:
UPDATE (Arnie Dean MD)
I have seen and evaluated the patient after signout and reviewed all labs and imaging.
Focused HPI: This is a 74-year-old female with a past medical history as noted significant for Parkinson's disease. She currently lives independently in the community; her daughter (who is a medic) lives with her part-time. She unfortunately lost
her in January. She has been having progressive ambulatory dysfunction related to her Parkinson's disease. She has had multiple falls. She was admitted to this hospital twice in the past week for ambulatory dysfunction most recently was
discharged 09/13/2024. After the second admission she was seen by physical therapy and Occupational Therapy and recommended for fpc facility for rehab but adamantly declined in favor of going home with a visiting nurse. She returned
yesterday to the emergency room because she feels very weak and unsteady on her feet and now she is requesting to go to inpatient rehab. She says 'I made a bad decision going home.' I spoke to her daughter�it sounds like patient is having some
cognitive issues since passing of her and is poorly compliant and hesitant to accept help for her functional decline. Daughter says that they have resources in place to support mother at home but mother is very resistant to help.
Physical exam: Patient is awake and alert. At times she is tearful during my interview. She is easily distracted at various times during interview digging through her bag, untangling earphones, etc. She is oriented x 3. She has no focal deficits,
generally unsteady on her feet.
Medical Decision Makin-year-old female returns to the emergency room after recent admission due to weakness/unsteadiness that she is requesting to go to rehab after previously declining. The plan was to observe her overnight pending case
management consultation but unfortunately case management assessed her this morning and they have limited ability to help the patient. Per case management she does not qualify for rehab coverage by her insurance and patient says that she cannot
afford rehab [id number]. I spoke to the patient, daughter, promotion officer at length multiple times today to figure out the best plan for the patient�patient is adamant that she cannot and will not go home 'if I go home I will break my hip.' I
explained that there may not be utility in admitting to the hospital as insurance will likely not cover this as an observation admission and therefore it likely will not count towards coverage for rehab; nevertheless patient feels that she cannot go
home and needs to be admitted. Daughter says that she can try to support her mother at home if rehab is not an option but cannot be home until tomorrow at the earliest but that should at this point we will admit to the hospital pending at least the
availability of her daughter for disposition home�case management will follow to see if they can figure out a plan to place in rehab.
Discharge Plan
Departure
Patient Disposition: Admit
Date of Disposition: 09/15/24
Time of Disposition: 14:55
Admit to doctor: Joanie
Presentation/result/management discussed w/ accepting MD/DO: Hospitalist
Discharge Problem:
Ambulatory dysfunction
Prescriptions:
No Action
alprazolam [Xanax] 0.5 mg Tablet
0.5 mg PO DAILYPRN PRN (Reason: anxiety)
Patient Comments:
last filled 11/29/23 #30
bupropion HCl [Wellbutrin XL] 150 mg Tablet Extended Release 24 Hr
150 mg PO DAILY
levothyroxine [Synthroid] 50 mcg Tablet
50 mcg PO DAILY
sertraline 100 mg Tablet
100 mg PO DAILY
melatonin 10 mg Tablet
10 mg PO HS
folic acid 1 mg Tablet
1 mg PO DAILY Qty: 30 0RF
thiamine mononitrate (vit B1) 100 mg Tablet
100 mg PO BID Qty: 60 0RF
amlodipine 5 mg Tablet
5 mg PO DAILY 30 Days Qty: 30 0RF
ropinirole 0.25 mg Tablet
0.5 mg PO TID PRN (Reason: restless legs) 30 Days Qty: 180 0RF
carbidopa-levodopa 25-100 mg Tablet
1 tab PO TID 30 Days Qty: 90 0RF
Referrals:
Ly Gallardo DO [Family Provider, Family Practice]
Interventions
Interventions:
*Risk Screen - Suicide Last Done: 09/14/24 22:13
*General Assessment Last Done: 09/14/24 22:13
*Neglect/Abuse Screening Last Done: 09/14/24 22:13
*ED- Fall Risk Assessment Last Done: 09/15/24 02:07
*ED COVID-19 Vaccine History Last Done: 09/15/24 02:07
ED- Cardiac Assessment Last Done: 09/14/24 23:00
ED- Neurological Assessment Last Done: 09/14/24 23:00
ED- Pulmonary Assessment Last Done: 09/14/24 23:00
Discharge Date and Time
Print Language: [place]
[2024-09-14 23:49] VITALS: BP 178/86
[2024-09-15] VITALS: BP 168/95
[2024-09-15 03:17] VITALS: BMI 25.8
[2024-09-15 04:00] VITALS: BP 167/87
--- NOTE | 2024-09-15 08:33 | EDRN ---
Case management in room w/ pt. Pt was up to commode just now.
[2024-09-15] MEDS: TYLENOL 650 MG PO (08:57)
--- NOTE | 2024-09-15 09:32 | CM ---
Addendum entered by Kala Chavez 09/15/24 13:38:
Per Dr Dean, pt and daughter continue to refuse discharge. Plan is for admission. I updated Annamarie from [facility] via TT.
Addendum entered by Kala Chavez 09/15/24 09:50:
Request for services form completed and faxed to [facility] on Aging. Also left a voicemail for [facility] informing them of ED visit and need for social worker assistant to see pt in addition to VN, PT and OT.
Original Note:
Met with pt bedside in ED. Pt told me she felt well when she was discharged from the hospital on Monday but got weaker and felt very shaky at home. Pt states ' I need intensive therapy'. Discussed that she was seen by PT/OT who recommended SNF for
rehab but she had declined and chose to go home. Pt states ' I was not seen by a Physicial Therapist'. [facility] was set up but had not made a visit yet. Pt told me she does not feel safe at home. Her in January and she told me she
hasn't gotten over that yet.
I spoke to her daughter Neha over the phone, Neha was living with her mother and assisting her but she told me her mother told her to move out. She is now packing her things and staying with her boyfriend. Nhea told me she has family and
friends that can help but her mother refuses to let them help. When I spoke to Kaylene she did tell me her sister in law is a nurse but she doesn't want to help.
Discussed that she has not met the 3 night inpatient admission stay that is required for SNF placement covered by insurance. Pt states she does not have the money to private pay for SNF. She is not part of the waiver program. Also discussed hiring
caregivers to be with her, especially overnight. Pt again states she does not have the money to pay for that, she believes insurance should cover that. I reinforced that her insurance does not cover caregivers.
Pt states her was a but when I asked if they had received services through the DC she told me that he was listed as 'training status' and he did not qualify for services.
I gave her information for [facility], told her she could call to look for assistance if she needs to move to personal care or assisted living. I also told her I would place a referral to [facility] but it can take up to 6
months to get services set up.
Discussed with Dr Dean that pt does not feel safe to return home and she does not have the money to private pay for SNF. He will discuss admission with hospitalist.
[2024-09-15 11:29] VITALS: BP 139/89
--- NOTE | 2024-09-15 15:07 | HPS.HSE ---
Family Physician
-
Family Physician: Ly Gallardo DO
Chief Complaint
-
Ambulatory dysfunction
History of Present Illness
74-year-old female from home due to unsteadiness on her feet. She had recent 2 prior admissions 09/08 - 09/09, 09/25/2024 for progressive ataxia, ambulatory dysfunction it was recommended at that time she attempt ago inpatient rehab which she
declined. She was seen today by case management who was unable to place due to insurance not covering rehab. ER reached out to patient's daughter who will be able to have outside services but not until tomorrow 09/16/2024 they were made aware this
will be observation admission. 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
weekends. The patient reports she is unsteady afraid she is going to fall. Patient denies headache, fever, chills, chest pain, palpitations, cough, shortness of breath, abdominal pain, nausea, vomiting, diarrhea, urinary symptoms. The patient has
past medical history of acute on chronic ambulatory dysfunction with presumed Parkinson's disease, hypertension, anxiety depression, CVA with left-sided residual weakness, hypothyroidism, stage IV melanoma, hypercalcemia, restless leg syndrome,
insomnia,Left nephrectomy (08/15/2022) wide excision melanoma/axillary dissection (10/25/21)
Medical History
Past Medical History
Past Medical History: Reports Other
Additional Past Medical History:
suspected Parkinson's disease
benign hypertension
anxiety/depression
restless leg syndrome
Hx CVA
Hx metastatic melanoma
Past Surgical History: Reports Other
Additional Past Surgical History:
Pelvic Mesh for urinary incontinence/cystocele(2011)
Tubal with salpingectomy
Tonsillectomy (1971)
Rectocele repair(2018)
Left nephrectomy (08/15/2022)
wide excision melanoma/axillary dissection (10/25/21)
Social History
Tobacco: Non-smoker
Alcohol: Occasional
Drug: None
Personal:
Living: Alone
Employment: Retired
Family History
Family History: Not pertinent and Other (Father: Leukemia; Mom: Alzheimer's )
Allergies / Home Medications
Allergies reflects when Allergies were last updated in [employer].
Home Medications with original date entered in [employer] [facility]
Allergy/Medication List:
Allergies
Allergy/AdvReac Type Severity Reaction Status Date / Time
No Known Allergies Allergy Verified 09/11/24 22:04
Home Medications
alprazolam 0.5 mg tablet (Xanax) 0.5 mg PO DAILYPRN PRN anxiety 03/31/24
bupropion HCl 150 mg 24 hr tablet, extended release (Wellbutrin XL) 150 mg PO DAILY Mental Health/Anxiety 03/31/24
glucosamine-chondroitin 250 mg-200 mg tablet (Osteo Bi-Flex) 1 tab PO DAILY Supplement 03/31/24
ropinirole 0.25 mg tablet 0.5 mg PO BID Restless leg syndrome 03/31/24
levothyroxine 50 mcg tablet (Synthroid) 50 mcg PO DAILY 09/08/24
melatonin 10 mg tablet 10 mg PO HS 09/08/24
sertraline 100 mg tablet 100 mg PO DAILY 09/08/24
aspirin 81 mg tablet,delayed release 81 mg PO DAILY 1 month #30 tabs 09/09/24
folic acid 1 mg tablet 1 mg PO DAILY Supplement #30 tabs 09/09/24
thiamine mononitrate (vit B1) 100 mg tablet 100 mg PO BID Supplement #60 tabs 09/09/24
Review of Systems
-
History Source: Patient
A 12 point ROS was completed and negative except as noted: Yes
Constitutional: Denies Fever or Chills
EENT: Denies Sore Throat or Runny Nose
Respiratory: Denies Cough or Trouble Breathing
Cardiac: Denies Chest Pain, Diaphoresis, Palpitations or Syncope
Abdomen/GI: Denies Abdominal Pain, Nausea, Vomiting, Diarrhea, Constipated or Bloody Stools
: Denies Dysuria, Frequency, Flank Pain, Incontinence or Difficulty Voiding
Musculoskeletal: Reports Other (Patient feels unsteady on feet states legs shake); Denies Joint Pain or Edema
Skin: Denies Itching or Rash
Neurological: Reports Weakness (Lower legs); Denies Dizzy or Headache
Endocrine: Reports No Symptoms
Hematologic/Lymphatic: Reports No Symptoms
Psych: Reports Calm
Physical Exam
Vital Signs
Vital Signs
Temp Pulse Resp BP Pulse Ox
98.4 F 88 17 139/89 99
09/15/24 04:00 09/15/24 11:29 09/15/24 11:29 09/15/24 11:29 09/15/24 11:29
Physical Exam
General: Comfortable and Conversant; No Pain, Fever, Chills or Sweats
HEENT: NormoCephalic, Anicteric, Moist mucous membranes, PERRLA, [place] Conjunctivae and No Ptosis
Respiratory: Clear; No Wheezes, Rales or Rhonchi
Cardiac: S1/S2 and Regular Rhythm
Breast: Deferred by me
GI: Soft, Non Tender, Non Distended, Normal Bowel Sounds and No Hepatosplenomegaly
Rectal: Deferred by Provider
Genito-urinary: Deferred by me
Musculoskeletal: No Clubbing, No Cyanosis and No Edema
Skin: Warm and Dry; No Rash or Jaundice
Neuro: AO x 3, Nonfocal/grossly intact, Cranial Nerves Intact and No Sensory Deficits; No Slurred Speech, Facial Droop, Tremors or Sedated
Psych: Calm
Impression/Plan
-
Impression/plan:
Observation MedSurg
#Acute on chronic ambulatory dysfunction
#History of presumed Parkinson's disease
-Had recent admission 09/08-09/09 then , 09/11 - 09/13/2024 declined rehab was recommended follow-up with neurologist for formal diagnosis of Parkinson's disease
- Case management unable to place patient for rehab due to insurance not covering
- Daughter to pick patient up tomorrow has outside support
- Continue carbidopa levodopa
Labs pending on admit
#HTN�benign
BP 139/89
Continue amlodipine 5 mg daily
#Anxiety/depression
- Continue Wellbutrin XL 150 mg daily, Xanax 0.5 mg daily as needed, Zoloft 100 mg daily
#History of CVA with left-sided residual deficits
#Hypothyroidism
-Continue Synthroid 50 mcg p.o. daily
#History stage IV melanoma-wide excision melanoma/axillary dissection (10/25/21)
#Left nephrectomy (08/15/2022)
#History hypercalcemia
-Calcium level was 9.8 on 09/13/2024 current labs pending
#Restless leg syndrome
-Continue Requip 0.5 mg 3 times daily, thiamine 100 mg p.o. twice daily
#Insomnia
-Continue melatonin 10 mg at bedtime
DVT prophylaxis
SCDs
Full code
[2024-09-15 15:23] LABS: Hematocrit 36.1 % (37.0-47.0); Hemoglobin 11.9 g/dL (12.0-16.0); Mean Corp Hgb Conc. 33.0 g/dL (33.0-37.0); Mean Corpuscular Volume 82.4 fL (81.0-99.0); Nucleated Red Blood Cells % 0 %; Platelet Count 265 10^3/uL (130-400); Red Cell Dist. Width 14.9 % (11.5-14.5)
[2024-09-15] MEDS: SINEMET 25-100 1 TABLET PO ×2 (15:28→21:09)
[2024-09-15] MEDS: REQUIP 0.5 MG PO ×2 (15:28→21:14)
[2024-09-15 15:45] LABS: ALT (SGPT) 40 U/L (0-35); AST (SGOT) 43 U/L (14-36); Albumin 4.4 g/dl (3.5-5.0); Alkaline Phosphatase 89 U/L (38-126); Blood Urea Nitrogen 14 mg/dl (7-17); Calcium 10.5 mg/dl (8.4-10.2); Carbon Dioxide 24 mmol/L (22-30); Chloride 101 mmol/L (98-107); Estimated Creatinine Clearance 57 ml/min; Glucose 109 mg/dl (70-99); Magnesium 1.6 mg/dl (1.6-2.3); Potassium 3.8 mmol/L (3.5-5.1); Sodium 132 mmol/L (135-145); Total Protein 7.2 g/dl (6.3-8.2); eGFR > 60.00
--- NOTE | 2024-09-15 15:46 | W.PN.UPDATE ---
Update Note
Progress Note Update
This is an addendum to H&P written by Silvia Evans on 09/15/2024. �Patient seen and examined independently with [employer] TRUCK DRIVER.
74-year-old female past medical history of suspected Parkinson's disease, frequent falls, chronic CVA with left residual deficits, stage IV melanoma, hyperlipidemia, hyponatremia, hypertension, anxiety/depression, presenting with ongoing generalized
weakness and difficulty ambulating. �She was discharged 2 days ago after being admitted for mechanical fall. �He was found to be hyponatremic, hypercalcemic which responded with IV fluids. �Prior to discharge from prior admission rehab was
recommended which patient declined at that time.
Blood pressure 160s.
Labs pending.
Patient needs rehab. �Case management states they will be impossible to place in rehab due to insurance difficulties. �Patient will need to stay overnight.
[2024-09-15 17:19] VITALS: BP 140/80
--- NOTE | 2024-09-15 17:40 | PTCARENOTE ---
174 Pt arrived from ER via stretcher. Alert and oriented x 3. VS stable, afebrile. Denies acute discomfort. Noted MD orders. Review and updated recent home meds with Pt. Notified DR. Nair pt needs current home medications ordered and pt
requesting motrin for arthritis discomfort, continue to monitor pt.
[2024-09-15 19:30] VITALS: BMI 26.2
[2024-09-15] MEDS: VITAMIN B1 100 MG PO (21:09)
[2024-09-15] MEDS: MELATONIN 10 MG PO (21:09)
[2024-09-15] MEDS: MOTRIN 400 MG PO (21:09)
[2024-09-15 21:18] LABS: Urine Character Clear (Clear)
[2024-09-15 22:58] VITALS: BP 146/78
[2024-09-16] MEDS: SYNTHROID 50 MCG PO (04:46)
[2024-09-16] MEDS: FOLVITE 1 MG PO (08:08)
[2024-09-16] MEDS: ASPIR LOW (ENTERIC COATED) 81 MG PO (08:08)
[2024-09-16] MEDS: SINEMET 25-100 1 TABLET PO ×3 (08:09→21:36)
[2024-09-16] MEDS: ZOLOFT 100 MG PO (08:09)
[2024-09-16] MEDS: WELLBUTRIN XL (24 hour extended release) 150 MG PO (08:09)
[2024-09-16] MEDS: VITAMIN B1 100 MG PO ×2 (08:09→19:54)
[2024-09-16] MEDS: MOTRIN 400 MG PO ×2 (09:05→20:41)
[2024-09-16] MEDS: NORVASC 5 MG PO (09:05)
[2024-09-16] MEDS: NSS 1000 IV (09:26)
[2024-09-16] MEDS: XANAX 0.5 MG PO (09:49)
[2024-09-16 12:21] VITALS: BP 162/88; PULSE 79; O2SAT 96
[2024-09-16] MEDS: REQUIP 0.5 MG PO ×2 (13:58→20:41)
--- NOTE | 2024-09-16 14:08 | W.PN.HOSP.TC ---
Today's Communication/Plan
-
Monitor vital sign
see plan
PT/OT
Gentle hydration
Monitor calcium
Discharge planning
Continue with Sinemet
Xanax as needed
Assessment / Plan
Assessment / Plan
General: Comfortable and Conversant; No Pain, Fever, Chills or Sweats
HEENT: NormoCephalic, Anicteric, Moist mucous membranes
Respiratory: Clear; No Wheezes, Rales or Rhonchi
Cardiac: S1/S2 and Regular Rhythm
GI: Soft, Non Tender, Non Distended, Normal Bowel Sounds
Musculoskeletal: No Edema
Neuro: AO x 3, Nonfocal/grossly intact
Psych: Calm
Acute on chronic ambulatory dysfunction
#History of presumed Parkinson's disease
-Had recent admission 09/08-09/09 then , 09/11 - 09/13/2024 declined rehab was recommended follow-up with neurologist for formal diagnosis of Parkinson's disease
- casework manager following
PT/OT
- Continue carbidopa levodopa; it was established on last admission the patient falls and ataxia is secondary to Parkinson's disease and was put on carbidopa/levodopa. She also has history of chronic CVA
Continue aspirin
Mild hyponatremia
Monitor
#HTN�benign
Continue amlodipine
#Anxiety/depression
- Continue Wellbutrin XL 150 mg daily, Xanax 0.5 mg daily as needed, Zoloft 100 mg daily
Do not think patient needs any inpatient psychiatry evaluation and this can be followed up outpatient
Elevated LFTs
Monitor
#History of CVA with left-sided residual deficits
#Hypothyroidism
-Continue Synthroid 50 mcg p.o. daily
#History stage IV melanoma-wide excision melanoma/axillary dissection (10/25/21)
#Left nephrectomy (08/15/2022)
#History hypercalcemia
- Gentle hydration
Monitor
#Restless leg syndrome
-Continue Requip 0.5 mg 3 times daily, thiamine 100 mg p.o. twice daily
#Insomnia
-Continue melatonin 10 mg at bedtime
DVT prophylaxis
SCDs
Full code
Anticipated Discharge: Within 24 hours
Subjective/Interval History
-
Date of Service: September 16, 2024
Denies pain
Objective Data
-
Vital Signs:
Vital Signs
Temp Pulse Resp BP Pulse Ox
97.8 F 79 16 162/88 96
09/16/24 07:03 09/15/24 22:51 09/15/24 22:51 09/16/24 09:05 09/16/24 07:03
I&O
09/15/24 09/16/24 09/17/24
06:59 06:59 06:59
Intake Total 960 / 960
Output Total 1360 / 1360
Balance -400 / -400
--- NOTE | 2024-09-16 14:51 | CM ---
Addendum entered by Marilyn Gardner 09/16/24 16:21:
list of SNF referrals emailed to daughter per patients request- [email or web address]
Original Note:
CM reviewed chart, patient seen bedside, discussed therapy recommendations of SNF, patient agreeable, referrals to [facility], [facility]. Patient will require insurance auth. CM will continue to follow for all discharge
planning needs.
Plan; SNF pending accepting facility, referrals placed, will need insurance auth
[2024-09-16] MEDS: MELATONIN 10 MG PO (21:36)
[2024-09-16 23:28] VITALS: BP 150/92
[2024-09-17] MEDS: MOTRIN 400 MG PO ×3 (05:05→23:35)
[2024-09-17] MEDS: SYNTHROID 50 MCG PO (05:06)
[2024-09-17] MEDS: REQUIP 0.5 MG PO ×3 (05:47→21:58)
[2024-09-17 05:53] LABS: Hematocrit 34.6 % (37.0-47.0); Hemoglobin 11.6 g/dL (12.0-16.0); Mean Corp Hgb Conc. 33.5 g/dL (33.0-37.0); Mean Corpuscular Volume 82.6 fL (81.0-99.0); Nucleated Red Blood Cells % 0 %; Platelet Count 250 10^3/uL (130-400); Red Cell Dist. Width 14.9 % (11.5-14.5)
[2024-09-17 06:18] LABS: ALT (SGPT) 10 U/L (0-35); AST (SGOT) 39 U/L (14-36); Albumin 4.0 g/dl (3.5-5.0); Alkaline Phosphatase 78 U/L (38-126); Blood Urea Nitrogen 16 mg/dl (7-17); Calcium 10.0 mg/dl (8.4-10.2); Carbon Dioxide 24 mmol/L (22-30); Chloride 103 mmol/L (98-107); Estimated Creatinine Clearance 57 ml/min; Glucose 100 mg/dl (70-99); Potassium 4.2 mmol/L (3.5-5.1); Sodium 135 mmol/L (135-145); Total Protein 6.5 g/dl (6.3-8.2); eGFR > 60.00
[2024-09-17] MEDS: NORVASC 5 MG PO (08:29)
[2024-09-17] MEDS: ASPIR LOW (ENTERIC COATED) 81 MG PO (08:29)
[2024-09-17] MEDS: VITAMIN B1 100 MG PO ×2 (08:29→20:11)
[2024-09-17] MEDS: ZOLOFT 100 MG PO (08:29)
[2024-09-17] MEDS: FOLVITE 1 MG PO (08:29)
[2024-09-17] MEDS: SINEMET 25-100 1 TABLET PO ×3 (08:29→21:56)
[2024-09-17] MEDS: WELLBUTRIN XL (24 hour extended release) 150 MG PO (08:29)
[2024-09-17 08:42] VITALS: BP 160/92
[2024-09-17 10:17] VITALS: PULSE 88; O2SAT 97
[2024-09-17] MEDS: XANAX 0.5 MG PO (10:53)
[2024-09-17 11:26] LABS: Folate > 20.0 ng/ml (2.76-20); Vitamin B12 391 pg/ml (239-931)
--- NOTE | 2024-09-17 12:38 | CM ---
CM reviewed chart, patient seen bedside, discussed [facility] able to offer patient a bed. CM spoke with patients daughter, Neha, , agreeable to [facility]. Auth submitted to [facility] (fax: [phone]), pending reference
#[id number]. CM will continue to follow for all discharge planning needs.
Plan; auth submitted to insurance, [facility] once auth approved
--- NOTE | 2024-09-17 13:05 | W.PN.HOSP.TC ---
Today's Communication/Plan
-
Monitor vital sign
see plan
PT
Discharge planning
Pending placement
Assessment / Plan
Assessment / Plan
General: Comfortable and Conversant; No Pain, Fever, Chills or Sweats
HEENT: NormoCephalic, Anicteric, Moist mucous membranes
Respiratory: Clear; No Wheezes, Rales or Rhonchi
Cardiac: S1/S2 and Regular Rhythm
GI: Soft, Non Tender, Non Distended, Normal Bowel Sounds
Musculoskeletal: No Edema
Neuro: AO x 3, Nonfocal/grossly intact
Psych: Calm
Acute on chronic ambulatory dysfunction
#History of presumed Parkinson's disease
-Had recent admission 09/08-09/09 then , 09/11 - 09/13/2024 declined rehab was recommended follow-up with neurologist for formal diagnosis of Parkinson's disease
- community case manager following
PT/OT
- Continue carbidopa levodopa; it was established on last admission the patient falls and ataxia is secondary to Parkinson's disease and was put on carbidopa/levodopa. She also has history of chronic CVA
Continue aspirin
Mild hyponatremia
Monitor
#HTN�benign
Continue amlodipine
#Anxiety/depression
- Continue Wellbutrin XL 150 mg daily, Xanax 0.5 mg daily as needed, Zoloft 100 mg daily
Do not think patient needs any inpatient psychiatry evaluation and this can be followed up outpatient
Elevated LFTs
Monitor
#History of CVA with left-sided residual deficits
#Hypothyroidism
-Continue Synthroid 50 mcg p.o. daily
#History stage IV melanoma-wide excision melanoma/axillary dissection (10/25/21)
#Left nephrectomy (08/15/2022)
#History hypercalcemia
DC further fluids
Monitor
#Restless leg syndrome
-Continue Requip 0.5 mg 3 times daily, thiamine 100 mg p.o. twice daily
#Insomnia
-Continue melatonin 10 mg at bedtime
DVT prophylaxis
SCDs
Full code
PT/OT recommending SNF
Anticipated Discharge: Today
Subjective/Interval History
-
Date of Service: September 17, 2024
Denies pain
Objective Data
-
Labs:
Laboratory Results
09/17/24
05:02
WBC 7.4
Hgb 11.6 L
Hct 34.6 L
Plt Count 250
Sodium 135
Potassium 4.2
Chloride 103
Carbon Dioxide 24
BUN 16
Creatinine 0.7
Glucose 100 H
Calcium 10.0
Total Bilirubin 0.4
AST 39 H
ALT 10
Alkaline Phosphatase 78
Vital Signs:
Vital Signs
Temp Pulse Resp BP Pulse Ox
98 F 76 16 160/92 96
09/17/24 07:00 09/17/24 08:42 09/17/24 07:00 09/17/24 08:42 09/17/24 08:40
I&O
09/16/24 09/17/24 09/18/24
06:59 06:59 06:59
Intake Total 960 / 960 2320 / 2320
Output Total 1360 / 1360 2400 / 2400
Balance -400 / -400 -80 / -80
[2024-09-17 16:08] VITALS: BP 150/84
[2024-09-17] MEDS: MELATONIN 10 MG PO (21:56)
[2024-09-17 23:34] VITALS: BP 162/92
[2024-09-18 05:04] LABS: Hematocrit 37.2 % (37.0-47.0); Hemoglobin 12.1 g/dL (12.0-16.0); Mean Corp Hgb Conc. 32.5 g/dL (33.0-37.0); Mean Corpuscular Volume 83.4 fL (81.0-99.0); Nucleated Red Blood Cells % 0 %; Platelet Count 270 10^3/uL (130-400); Red Cell Dist. Width 14.8 % (11.5-14.5)
[2024-09-18] MEDS: SYNTHROID 50 MCG PO (05:14)
[2024-09-18] MEDS: MOTRIN 400 MG PO (05:30)
[2024-09-18 05:39] LABS: ALT (SGPT) 11 U/L (0-35); AST (SGOT) 37 U/L (14-36); Albumin 4.2 g/dl (3.5-5.0); Alkaline Phosphatase 91 U/L (38-126); Blood Urea Nitrogen 17 mg/dl (7-17); Calcium 10.0 mg/dl (8.4-10.2); Carbon Dioxide 24 mmol/L (22-30); Chloride 103 mmol/L (98-107); Estimated Creatinine Clearance 50 ml/min; Glucose 93 mg/dl (70-99); Potassium 4.2 mmol/L (3.5-5.1); Sodium 135 mmol/L (135-145); Total Protein 6.8 g/dl (6.3-8.2); eGFR > 60.00
[2024-09-18] MEDS: ZOLOFT 100 MG PO (07:57)
[2024-09-18] MEDS: ASPIR LOW (ENTERIC COATED) 81 MG PO (07:57)
[2024-09-18] MEDS: NORVASC 5 MG PO (07:57)
[2024-09-18] MEDS: SINEMET 25-100 1 TABLET PO (07:57)
[2024-09-18] MEDS: VITAMIN B1 100 MG PO (07:57)
[2024-09-18] MEDS: FOLVITE 1 MG PO (07:57)
[2024-09-18] MEDS: WELLBUTRIN XL (24 hour extended release) 150 MG PO (07:58)
[2024-09-18 08:00] VITALS: BP 148/88
--- NOTE | 2024-09-18 10:40 | CM ---
CM reviewed chart, auth received from [facility], approved 09/17-09/19, next review 09/19, resident care associate assigned Loretta Alejandroalice, auth #[id number], updates to , - Updates to Brittany Brewer, at [facility]. CM
spoke with patients daughterNeha, will provide transport for patient around 12:00 p.m. Patient seen bedside, updated. Hospitalist, Nurse updated. CM will continue to follow for all discharge planning needs.
Plan; auth approved to [facility], daughter to transport
[facility]:
Report: [phone]
[2024-09-18] MEDS: XANAX 0.5 MG PO (10:56)
--- NOTE | 2024-09-18 11:42 | W.PN.HOSP.TC ---
Today's Communication/Plan
-
Monitor vital signs and see plan
Discharge to SNF today
Time of discharge 37 minutes
Assessment / Plan
Assessment / Plan
General: Comfortable and Conversant; No Pain, Fever, Chills or Sweats
HEENT: NormoCephalic, Anicteric, Moist mucous membranes
Respiratory: Clear; No Wheezes, Rales or Rhonchi
Cardiac: S1/S2 and Regular Rhythm
GI: Soft, Non Tender, Non Distended, Normal Bowel Sounds
Musculoskeletal: No Edema
Neuro: AO x 3, Nonfocal/grossly intact
Psych: Calm
Acute on chronic ambulatory dysfunction
#History of presumed Parkinson's disease
-Had recent admission 09/08-09/09 then , 09/11 - 09/13/2024 declined rehab was recommended follow-up with neurologist for formal diagnosis of Parkinson's disease
- heel caser following
PT/OT
- Continue carbidopa levodopa; it was established on last admission the patient falls and ataxia is secondary to Parkinson's disease and was put on carbidopa/levodopa. She also has history of chronic CVA
Continue aspirin
Mild hyponatremia
Monitor
#HTN�benign
Continue amlodipine
#Anxiety/depression
- Continue Wellbutrin XL 150 mg daily, Xanax 0.5 mg daily as needed, Zoloft 100 mg daily
Do not think patient needs any inpatient psychiatry evaluation and this can be followed up outpatient
Elevated LFTs
Monitor
#History of CVA with left-sided residual deficits
#Hypothyroidism
-Continue Synthroid 50 mcg p.o. daily
#History stage IV melanoma-wide excision melanoma/axillary dissection (10/25/21)
#Left nephrectomy (08/15/2022)
#History hypercalcemia
DC further fluids
Monitor
#Restless leg syndrome
-Continue Requip 0.5 mg 3 times daily, thiamine 100 mg p.o. twice daily
#Insomnia
-Continue melatonin 10 mg at bedtime
DVT prophylaxis
SCDs
Full code
PT/OT recommending SNF
Anticipated Discharge: Today
Subjective/Interval History
-
Date of Service: September 18, 2024
denies pain
Objective Data
-
Labs:
Laboratory Results
09/18/24
04:46
WBC 7.6
Hgb 12.1
Hct 37.2
Plt Count 270
Sodium 135
Potassium 4.2
Chloride 103
Carbon Dioxide 24
BUN 17
Creatinine 0.8
Glucose 93
Calcium 10.0
Total Bilirubin 0.4
AST 37 H
ALT 11
Alkaline Phosphatase 91
Vital Signs:
Vital Signs
Temp Pulse Resp BP Pulse Ox
98.6 F 85 14 148/88 98
09/18/24 08:00 09/18/24 08:00 09/18/24 08:00 09/18/24 08:00 09/18/24 08:00
I&O
09/17/24 09/18/24 09/19/24
06:59 06:59 06:59
Intake Total 2320 / 2320 480 / 480
Output Total 2400 / 2400
Balance -80 / -80 480 / 480
--- NOTE | 2024-09-18 11:46 | W.DCSUMMARY ---
Discharge Summary
Discharge Data
Date of Admission: 09/15/24
Date of Discharge: 09/18/24
-
Pending Results: No
Hospital Course
74-year-old female with past medical history of hypertension, anxiety, depression, CVA, hypothyroidism, stage IV melanoma, left nephrectomy, restless leg syndrome, insomnia, hypercalcemia, Parkinson's disease came to the hospital with acute on
chronic amatory dysfunction. On last admission patient was instructed to go to rehab however patient refused. From last admission patient instructed to follow-up with neurology closely outpatient for further test for Parkinson's disease. Patient
symptoms continue to improve while she was in the hospital. She was again seen by physical therapy and was recommended SNF. Once patient had placement, she was then discharged to rehab with instructions to follow-up with all her physicians
outpatient.
Discharge Plan
-
Patient Disposition: Penitentiary/SNF
Discharge Diagnosis/Procedures: Acute on chronic ambulatory dysfunction
History of presumed Parkinson's disease
Mild hyponatremia
Elevated LFTs
Diet: As tolerated
Activity: With assistance and As tolerated
Driving Restrictions: As prior to admission
Bathing Restrictions: None
Referrals:
Paul Ambriz MD [Active, Neurology]
Ly Gallardo DO [Family Provider, Family Practice] - in less than 1 week
Lorin Pressley MD [Active, Psychiatry]
Prescriptions:
Continued
bupropion HCl [Wellbutrin XL] 150 mg Tablet Extended Release 24 Hr
150 mg PO DAILY
levothyroxine [Synthroid] 50 mcg Tablet
50 mcg PO DAILY
sertraline 100 mg Tablet
100 mg PO DAILY
melatonin 10 mg Tablet
10 mg PO HS
folic acid 1 mg Tablet
1 mg PO DAILY Qty: 30 0RF
thiamine mononitrate (vit B1) 100 mg Tablet
100 mg PO BID Qty: 60 0RF
amlodipine 5 mg Tablet
5 mg PO DAILY 30 Days Qty: 30 0RF
ropinirole 0.25 mg Tablet
0.5 mg PO TID PRN (Reason: restless legs) 30 Days Qty: 180 0RF
carbidopa-levodopa 25-100 mg Tablet
1 tab PO TID 30 Days Qty: 90 0RF
aspirin 81 mg Tablet,Delayed Release (Dr/Ec)
81 mg DAILY
ibuprofen 200 mg Tablet
400 mg PO Q6H PRN (Reason: Arthritic pain)
alprazolam [Xanax] 0.5 mg Tablet
0.5 mg PO DAILYPRN PRN (Reason: anxiety) Qty: 3 0RF
Discharge Orders:
Discharge Patient (As Directed); Ordered 09/18/24
Ordered By: Armani Lemus
Discharge Date and Time
Discharge Date/Time: 09/18/24 13:40
Print Language: MONGOLIAN
== END 2024-09-18 13:40 ==
LOC: 4 WEST ACU 16:29
PROVIDERS: Emergency Medicine; ADMITTING PHYSICIAN Hospitalist; ATTENDING PHYSICIAN Internal Medicine; EMERGENCY PHYSICIAN Emergency Medicine; FAMILY PHYSICIAN Internal Medicine
DX: E87.1 Hypo-osmolality and hyponatremia (principal); R26.2 Difficulty in walking, not elsewhere classified; R79.89 Other specified abnormal findings of blood chemistry; I10 Essential (primary) hypertension; G20.A1 Parkinson's disease without dyskinesia, without mention of fluctuations; F41.9 Anxiety disorder, unspecified; F32.A Depression, unspecified; I69.30 Unspecified sequelae of cerebral infarction; E03.9 Hypothyroidism, unspecified; Z90.5 Acquired absence of kidney; G25.81 Restless legs syndrome; G47.00 Insomnia, unspecified; Z85.820 Personal history of malignant melanoma of skin; Z79.899 Other long term (current) drug therapy
CPT/HCPCS: 80053; 81003; 81015; 82607; 82746; 83735; 84100; 84443; 85025; 97116; 97163; 97167; 97530; 99285; G0378

== ENCOUNTER 2024-11-07 18:27 | Inpatient (IN) | payer MEDICARE, SELFPAY ==
[2024-11-07 10:55] VITALS: BP 118/78
--- NOTE | 2024-11-07 12:16 | ED.GENMED ---
History of Present Illness
General
Chief Complaint: Abdominal Symptoms
Source: patient
Time Seen by Provider: 11/07/24 11:44
History of Present Illness
History of Present Illness:
74-year-old female presents to the emergency room complaining of intractable nausea. Patient has been feeling nauseous for the past week. When she attempts to eat anything she immediately feels like she is has to stop eating. She has not vomited.
She has had some loose stools. She denies any fever, chills. She has some intermittent mild abdominal discomfort. She denies previous abdominal operations. She denies chest pain or shortness of breath. She is taking Pepto-Bismol without any
significant improvement. Patient was diagnosed with Parkinson's disease in September. She started Sinemet at that time. Her dose of cement was increased about 3 weeks ago. No new medications.
Past History
Past History
ED Past Medical History: Psychiatric (Anxiety/depression) and Other (UTIs, Melanoma, )
ED Past Surgical History: Gynecological (Tubal ligation), Tonsilectomy and Other (Mesh placed. Cystocel/Rectacel)
Social History
Tobacco: Non-smoker
Alcohol: None
Personal:
Living: with family
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
Family History
Family History: Other (Noncontributory)
Phy Exam
Physical Exam
Physical Exam:
General: Awake, Alert, Oriented X3. No acute distress, appears stated age
Vitals: unremarkable
Head: Atraumatic
Eyes: Pupils equal, EOMI
Throat: Airway intact, no exudates
Neck: Trachea midline
Lungs: Clear and equal b/l
Heart: Regular rate, no murmurs
Abd: Soft, Nontender, No pulsatile mass
Neuro: Nonfocal
Skin: Warm, dry, no rash
Extremities: pulses equal b/l, no edema
Course
Orders/Labs/Results
Orders:
Orders
11/07/24 Lunch
Regular
At Your Request: Full Participation
11/07/24 12:11
0.9% Sodium Chloride 500 ml [Nss] 500 ml IV BOLUS
Iohexol [Omnipaque] See Protocol PO NOW STA
Ondansetron Injectable [Zofran] 4 mg IV NOW STA
11/07/24 12:14
CT Abd/pel W Iv And Oral Contr Urgent
Comment:
Reason For Exam: nausea, abd pain
11/07/24 12:15
Electrocardiogram (*1) Urgent
Reason for Study: Fatigue / Weakness
EKG- Treatment ONCE
11/07/24 13:08
Amylase Urgent
Complete Blood Count/With Diff Urgent
Lipase Urgent
Troponin I Urgent
11/07/24 13:17
Comprehensive Metabolic Panel Urgent
11/07/24 17:02
Piperacillin/Tazo 4.5 Gram [Zosyn] 4.5 gram in 100 ml IV NOW
11/07/24 17:14
Urinalysis Reflex To Culture Urgent
Date Specimen was Collected: 11/07/24
Time Specimen was Collected: 17:12
Urine Microscopic Reflex Cult Urgent
11/07/24 18:00
0.9% Sodium Chloride 1000 ml [Nss] 1,000 ml IV BOLUS
11/07/24 18:02
Admit/Transfer Patient As Directed
Co-Sign Provider:
Level of Care: Inpatient admission
Assign to:: Medical/Surgical
Physician / Group: Kojo
Diagnosis: Colitis
Reason for Hospitalization: Colitis
Expected length of stay greater than two midnights?: Yes
ELOS- Estimated Length of Stay in days: 3
I certify the patient meets the requirements for IP care: Yes
PRN Pain Medication Management As Directed
May give lesser potent ordered pain med per pt: Yes
preference::
Protocol:: Medication orders for pain may be administered in a
manner that supports deferring to patient preference
when the pt is:
- Requesting an ordered lesser potent pain medication.
Least to most potent pain medications are defined
as: acetaminophen < NSAID < tramadol < opioids
(morphine, oxycodone, hydromorphone).
- Requesting a lesser dose of the same medication IF
ORDERED.
- Requesting a less intrusive route of administration
if both routes are prescribed by the provider (PO <
IV).
11/07/24 18:03
Code Status As Directed
Resuscitation Status: Full Code
11/07/24 18:04
CDIFF [C difficile Antigen & Toxins] Urgent
KELSY Source: Feces/Stool
Specimen Description:
Date Specimen was Collected: 11/07/24
Time Specimen was Collected: 17:44
Stool Culture Urgent
KELSY Source: Feces/Stool
Specimen Description:
Date Specimen was Collected: 11/07/24
Time Specimen was Collected: 17:44
Stool For WBC Urgent
KELSY Source: Feces/Stool
Specimen Description:
Date Specimen was Collected: 11/07/24
Time Specimen was Collected: 17:44
Yersinia Culture-Stool Urgent
KELSY Source: Feces/Stool
Specimen Description:
Date Specimen was Collected: 11/07/24
Time Specimen was Collected: 17:44
11/07/24 19:27
0.9% Sodium Chloride 1000 ml [Nss] 1,000 ml IV 80 mls/hr
Acetaminophen [Tylenol] 650 mg PO Q4HPRN PRN
Alprazolam [Xanax] 0.5 mg PO DAILYPRN PRN anxiety
Bisacodyl [Dulcolax] 10 mg RECTAL [id number] PRN
Docusate W/Senna [Senokot-S] 1 tablet PO BIDPRN PRN
Mag Hydrox/Al Hydrox/Simeth [Maalox] 30 ml PO Q6HPRN PRN
Ondansetron Injectable [Zofran] 4 mg IV Q8HPRN PRN
Polyethylene Glycol Powder [Miralax] 17 grams PO DAILYPRN PRN
Ropinirole [Requip] 0.5 mg PO TIDPRN PRN restless legs
11/07/24 19:27
Activity As Directed
Activity Level: Out of Bed-Early Mobility
Precautions As Directed
Type of Precautions: Contact
Vital Signs As Directed
Frequency: Per unit guidelines
DX Deep Vein Thrombosis Video Routine
11/07/24 20:00
Thiamine HCl [Vitamin B1] 100 mg PO BID
11/07/24 22:00
Ampicillin/Sulbactam 3 G [Unasyn] 3 gm 0.9% Sodium Chloride 100 ml [Nss] 100 ml IV Q6H
Carbidopa/Levodopa [Sinemet 25-100] 1 tablet PO TID
Melatonin 10 mg PO HS
11/08/24 04:03
Complete Blood Count/With Diff IN AM
TSH IN AM
11/08/24 04:04
Comprehensive Metabolic Panel IN AM
Magnesium IN AM
11/08/24 06:00
Levothyroxine [Synthroid] 50 mcg PO DAILY@0600
11/08/24 08:00
Amlodipine [Norvasc] 5 mg PO DAILY
Aspirin Low Dose EC [Aspir Low (Enteric Coated)] 81 mg PO DAILY
Bupropion(24Hr)Extended Releas [WELLBUTRIN XL (24 hour extended release)] 150 mg PO DAILY
FOLic ACID [Folvite] 1 mg PO DAILY
Sertraline HCl [Zoloft] 100 mg PO DAILY
11/08/24 11:14
MR Abdomen W/o & W Contrast Routine
Comment: with MRCP
Reason For Exam: nausea, gall bladder wall thikening, liver lesions
Recent pill cam endoscopy?: No
11/08/24 18:00
Enoxaparin Sodium [Lovenox] 40 mg SC QPM
Abnormal Lab Results
11/07/24 11/07/24 11/07/24
13:08 13:17 17:14
WBC 16.2 H 10^3/uL
(4.8-10.8)
Hct 36.4 L %
(37.0-47.0)
MCV 80.7 L fL
(81.0-99.0)
MCH 26.6 L pg
(27.0-31.0)
Abs Immat Gran (auto) 0.1 H 10^3/uL
(0-0.05)
Absolute Neuts (auto) 13.5 H 10^3/uL
(1.4-6.5)
Absolute Monos (auto) 1.2 H 10^3/uL
(0.1-0.6)
Neutrophils % 83.7 H %
(42.2-75.2)
Lymphocytes % 7.3 L %
(20.5-51.1)
Sodium 129 L mmol/L
(135-145)
Total Protein 6.1 L g/dl
(6.3-8.2)
Ur Occult Blood Reflex 1+ A
(Negative)
Urine RBC 3-6 A /HPF
(0-2)
Urine Bacteria (Reflex) Few A
(Negative)
11/07/24 13:08
11/07/24 13:17
Vital Signs
Initial and Last Documented VS:
Initial Vital Signs
Temp Pulse Resp BP Pulse Ox
97.9 F 61 14 118/78 98
11/07/24 10:55 11/07/24 10:55 11/07/24 10:55 11/07/24 10:55 11/07/24 10:55
Last Documented Vital Signs
Temp Pulse Resp BP Pulse Ox
98.3 F 73 20 118/62 96
11/08/24 23:00 11/08/24 23:00 11/08/24 23:00 11/08/24 23:00 11/08/24 23:22
MDM/Problems Addressed
Differential Diagnosis Includes:
Small bowel obstruction, gastroparesis, viral gastroenteritis,
MDM/Problems Addressed:
Patient presents with what is essentially persistent nausea. Also poor intake due to anorexia. Workup here shows elevated white blood cell count at 16,000. CT shows pancolitis. IV antibiotics started. Will require hospitalization for persistent
diarrhea and inability to tolerate oral intake
*Radiology
Radiology exam reviewed: radiology read reviewed
*Pulse Oximetry
SaO2: 98
Oxygen Mode of Delivery: Room air
Patient hypoxic: no
*EKG
Interpreted by ED Provider?: Yes
Heart Rate: 81
Rate: normal
Rhythm: sinus
[place]: normal axis
Interval: normal interval
QRS Pattern: normal QRS
Ischemia: no ischemia
*Coal Crusher Operator Interpretation
Rate: normal
Interpretation: normal
Rhythm: sinus
*Critical Care Note
Total Time (30-74mins, 75-104mins- exclusive of procedures): Not Applicable
ED Attending Note
-
Portions of this chart may have been created with voice recognition software.� Occasional wrong word or��sound alike� substitutions may have occurred due to the inherent limitations of voice recognition software.
Discharge Plan
Departure
Patient Disposition: Admit
Date of Disposition: 11/07/24
Time of Disposition: 17:03
Admit to: Med/Surg
Presentation/result/management discussed w/ accepting MD/DO: Hospitalist
Condition: Fair
Discharge Problem:
Pancolitis
Interventions
Interventions:
*Risk Screen - Suicide Last Done: 11/07/24 10:55
*General Assessment Last Done: 11/07/24 10:55
*Neglect/Abuse Screening Last Done: 11/07/24 10:55
*ED- Fall Risk Assessment Last Done: 11/07/24 20:08
*ED COVID-19 Vaccine History Last Done: 11/07/24 10:55
*ED Influenza Vaccine History Last Done: 11/07/24 13:25
*Nursing Disposition Last Done: 11/07/24 20:08
HQ-Rsttqd-Hmojmhuete Assessment Last Done: 11/07/24 13:25
Discharge Date and Time
Discharge Date/Time: 11/07/24 20:09
[2024-11-07 12:26] VITALS: BMI 23.0
[2024-11-07] MEDS: OMNIPAQUE 50 ML PO (12:45)
[2024-11-07 12:49] VITALS: BP 126/79
[2024-11-07 13:00] VITALS: BP 129/82
[2024-11-07] MEDS: NSS 500 IV (13:09)
[2024-11-07] MEDS: ZOFRAN 4 MG IV (13:10)
[2024-11-07 13:16] LABS: Hematocrit 36.4 % (37.0-47.0); Hemoglobin 12.0 g/dL (12.0-16.0); Mean Corp Hgb Conc. 33.0 g/dL (33.0-37.0); Mean Corpuscular Volume 80.7 fL (81.0-99.0); Nucleated Red Blood Cells % 0 %; Platelet Count 276 10^3/uL (130-400); Red Cell Dist. Width 13.9 % (11.5-14.5)
[2024-11-07 13:45] LABS: Troponin I < 0.012 ng/ml
[2024-11-07 13:49] LABS: Lipase 24 U/L (23-300)
[2024-11-07 14:00] VITALS: BP 139/83
[2024-11-07 14:03] LABS: Amylase 49 U/L (30-110)
[2024-11-07 14:09] LABS: ALT (SGPT) < 10 U/L (0-35); AST (SGOT) 25 U/L (14-36); Albumin 3.7 g/dl (3.5-5.0); Alkaline Phosphatase 86 U/L (38-126); Blood Urea Nitrogen 12 mg/dl (7-17); Calcium 9.5 mg/dl (8.4-10.2); Carbon Dioxide 23 mmol/L (22-30); Chloride 98 mmol/L (98-107); Estimated Creatinine Clearance 50 ml/min; Glucose 94 mg/dl (70-99); Potassium 4.4 mmol/L (3.5-5.1); Sodium 129 mmol/L (135-145); Total Protein 6.1 g/dl (6.3-8.2); eGFR > 60.00
[2024-11-07 17:22] LABS: Urine Character Clear (Clear)
[2024-11-07 17:31] LABS: Urine White Cell 0-2 /HPF (0-5)
--- NOTE | 2024-11-07 17:37 | HPS.HSE ---
Family Physician
-
Family Physician: Ly Gallardo DO
Chief Complaint
-
nausea, diarrhea
History of Present Illness
74yo F with PMHX of Parkinson, RLS, HX of melanoma, Hx of L nephrectomy, HTN, anxiety came with 1 day of severe diarrhea, also had nausea over past week.
Medical History
Past Medical History
Past Medical History: Reports Other
Additional Past Medical History:
as above
Past Surgical History: Reports Other
Additional Past Surgical History:
as above
Social History
Tobacco: Non-smoker
Alcohol: None
Drug: None
Family History
Family History: Not pertinent
Allergies / Home Medications
Allergies reflects when Allergies were last updated in [facility].
Home Medications with original date entered in [facility]
Allergy/Medication List:
Allergies
Allergy/AdvReac Type Severity Reaction Status Date / Time
No Known Allergies Allergy Verified 09/11/24 22:04
Home Medications
bupropion HCl 150 mg 24 hr tablet, extended release (Wellbutrin XL) 150 mg PO DAILY Mental Health/Anxiety 03/31/24
levothyroxine 50 mcg tablet (Synthroid) 50 mcg PO DAILY Thyroid 09/08/24
melatonin 10 mg tablet 10 mg PO HS Sleep 09/08/24
sertraline 100 mg tablet 100 mg PO DAILY Depression 09/08/24
folic acid 1 mg tablet 1 mg PO DAILY Supplement #30 tabs 09/09/24
thiamine mononitrate (vit B1) 100 mg tablet 100 mg PO BID Supplement #60 tabs 09/09/24
amlodipine 5 mg tablet 5 mg PO DAILY 1 month #30 tabs 09/13/24
carbidopa 25 mg-levodopa 100 mg tablet 1 tab PO TID 1 month #90 tabs 09/13/24
ropinirole 0.25 mg tablet 0.5 mg (2 x 0.25 mg) PO TID PRN restless legs 1 month #180 tabs 09/13/24
aspirin 81 mg tablet,delayed release 81 mg DAILY Blood Clot Prevention/Tx 09/15/24
ibuprofen 200 mg tablet 400 mg PO Q6H PRN Arthritic pain 09/15/24
alprazolam 0.5 mg tablet (Xanax) 0.5 mg PO DAILYPRN PRN anxiety #3 tabs 09/18/24
Review of Systems
-
History Source: Patient
A 12 point ROS was completed and negative except as noted: Yes
Constitutional: Reports See HPI
Cardiac: Reports See HPI
Physical Exam
Vital Signs
Vital Signs
Temp Pulse Resp BP Pulse Ox
97.9 F 61 14 139/83 97
11/07/24 10:55 11/07/24 10:55 11/07/24 10:55 11/07/24 14:00 11/07/24 14:45
Physical Exam
General: Well Developed, Well Nourished and No Apparent Distress
HEENT: NormoCephalic and Anicteric; No Moist mucous membranes
Respiratory: Clear; No Wheezes or Crackles
Cardiac: S1/S2, Regular Rhythm and Tachycardia
GI: Soft, Non Distended and Tender (diffuse mild)
Musculoskeletal: No Clubbing, No Cyanosis and No Edema
Skin: Warm and Dry
Neuro: Awake, Alert, Oriented and AO x 3
Psych: Anxious
Laboratory Results
-
11/07/24 13:08
11/07/24 13:17
Laboratory Results
Total Bilirubin 0.4 mg/dl (0.2-1.3) 11/07/24 13:17
AST 25 U/L (14-36) 11/07/24 13:17
ALT < 10 U/L (0-35) 11/07/24 13:17
Alkaline Phosphatase 86 U/L (38-126) 11/07/24 13:17
Troponin I < 0.012 ng/ml 11/07/24 13:08
Lipase 24 U/L (23-300) 11/07/24 13:08
Impression/Plan
-
A/P:
#Diarrhea with nonspecific colitis with leukocytosis
CT showed diffuse mild to moderate colonic wall thickening from the cecum to the sigmoid colon
Stool Cx, C.diff
Unasyn
Imodium if stool leukocytes neg
#Cholelithiasis with possible gall bladder wall edema, r/o cholecystitis
#Probable small hepatic hemangioma
#low-attenuation foci in the liver
#Possible perfusion anomalies
No RUQ tenderness
Unasyn as above
MRI with MRCP reasonable with multiple findings and nausea, if positive - GenSx
#Hyponatremia
most likely hypovolemic 2/2 diarrhea
IVF
#Stable 4 mm nodule in the medial left lung base
repeat CT chest in 6-12mo with PCP
#Parkinson disease
#Anxiety/depression
#Hx of CVA with mild L residual weakness
#Hypothyroidism
#Hx of Stage 4 melanoma s/p wide excision and axillary dissection in 2021 and immunotherapy (last completed in Mar as per patient)
#L nephrectomy
#RLS
#Insomnia
cont home meds
DVT ppx Lovenox
Full code
I have spent at least 76min checking chart, test results and providing direct patient care
[2024-11-07] MEDS: ZOSYN 100 IV (17:39)
[2024-11-07] MEDS: NSS 1000 IV ×2 (18:25→21:07)
[2024-11-07 20:30] VITALS: BMI 23.8
[2024-11-07] MEDS: UNASYN IV (21:08)
[2024-11-07 21:26] VITALS: BP 118/68
[2024-11-07] MEDS: REQUIP 0.5 MG PO (22:04)
[2024-11-07] MEDS: SINEMET 25-100 1 TABLET PO (22:04)
[2024-11-07] MEDS: MELATONIN 10 MG PO (22:04)
[2024-11-07] MEDS: XANAX 0.5 MG PO (22:07)
[2024-11-08] MEDS: MAALOX 30 ML PO (01:37)
[2024-11-08] MEDS: ZOFRAN 4 MG IV ×3 (01:38→21:19)
[2024-11-08] MEDS: TYLENOL 650 MG PO ×2 (04:24→16:54)
[2024-11-08] MEDS: UNASYN IV ×4 (04:24→21:13)
[2024-11-08] MEDS: SYNTHROID 50 MCG PO (04:24)
[2024-11-08 05:44] LABS: Hematocrit 33.6 % (37.0-47.0); Hemoglobin 11.1 g/dL (12.0-16.0); Mean Corp Hgb Conc. 33.0 g/dL (33.0-37.0); Mean Corpuscular Volume 81.6 fL (81.0-99.0); Nucleated Red Blood Cells % 0 %; Platelet Count 250 10^3/uL (130-400); Red Cell Dist. Width 13.8 % (11.5-14.5)
[2024-11-08 05:49] LABS: ALT (SGPT) < 10 U/L (0-35); AST (SGOT) 20 U/L (14-36); Albumin 3.3 g/dl (3.5-5.0); Alkaline Phosphatase 76 U/L (38-126); Blood Urea Nitrogen 9 mg/dl (7-17); Calcium 9.0 mg/dl (8.4-10.2); Carbon Dioxide 22 mmol/L (22-30); Chloride 103 mmol/L (98-107); Estimated Creatinine Clearance 57 ml/min; Glucose 109 mg/dl (70-99); Magnesium 1.6 mg/dl (1.6-2.3); Potassium 3.9 mmol/L (3.5-5.1); Sodium 133 mmol/L (135-145); Total Protein 5.6 g/dl (6.3-8.2); eGFR > 60.00
[2024-11-08 06:19] LABS: TSH 1.80 uIU/ml (0.47-4.68)
[2024-11-08] MEDS: SINEMET 25-100 1 TABLET PO ×4 (08:56→21:13)
[2024-11-08] MEDS: IMODIUM 2 MG PO (08:56)
[2024-11-08] MEDS: MAGNESIUM SULFATE 50 IV (08:56)
[2024-11-08] MEDS: ZOLOFT 100 MG PO (08:56)
[2024-11-08] MEDS: WELLBUTRIN XL (24 hour extended release) 150 MG PO (08:57)
[2024-11-08] MEDS: ASPIR LOW (ENTERIC COATED) 81 MG PO (08:57)
[2024-11-08] MEDS: VITAMIN B1 100 MG PO (08:57)
--- NOTE | 2024-11-08 09:04 | W.PN.HOSP.TC ---
Today's Communication/Plan
-
cont Abx IVF pending MRI RUQ
Assessment / Plan
Assessment / Plan
74yo F with PMHX of Parkinson, RLS, HX of melanoma, Hx of L nephrectomy, HTN, anxiety came with 1 day of severe diarrhea, also had nausea over past week. Managed for colitis.
A/P:
#Diarrhea with nonspecific colitis with leukocytosis, doubt ischemic, most likely infectious vs inflammatory (less likely)
CT showed diffuse mild to moderate colonic wall thickening from the cecum to the sigmoid colon
Stool Cx
C.diff neg
Unasyn
Imodium
#Cholelithiasis with possible gall bladder wall edema, r/o cholecystitis
#Probable small hepatic hemangioma
#low-attenuation foci in the liver
#Possible perfusion anomalies
diffuse abd tenserness
Unasyn as above
MRI with MRCP reasonable with multiple findings and nausea, if positive - GenSx
#Hyponatremia
improving on IVF - cont
#Stable 4 mm nodule in the medial left lung base
repeat CT chest in 6-12mo with PCP
#Parkinson disease
#Anxiety/depression
#Hx of CVA with mild L residual weakness
#Hypothyroidism
#Hx of Stage 4 melanoma s/p wide excision and axillary dissection in 2021 and immunotherapy (last completed in Mar as per patient)
#L nephrectomy
#RLS
#Insomnia
cont home meds
DVT ppx Lovenox
Full code
I have spent at least 56min checking chart, test results and providing direct patient care
Anticipated Discharge: > 48 hours
Subjective/Interval History
-
Date of Service: November 08, 2024
Objective Data
-
Labs:
Laboratory Results
11/08/24 11/08/24
04:03 04:04
WBC 14.0 H
Hgb 11.1 L
Hct 33.6 L
Plt Count 250
Sodium 133 L
Potassium 3.9
Chloride 103
Carbon Dioxide 22
BUN 9
Creatinine 0.7
Glucose 109 H
Calcium 9.0
Total Bilirubin 0.4
AST 20
ALT < 10
Alkaline Phosphatase 76
Vital Signs:
Vital Signs
Temp Pulse Resp BP Pulse Ox
98.5 F 81 18 118/68 94
11/08/24 07:20 11/08/24 07:20 11/08/24 07:20 11/07/24 21:26 11/08/24 07:20
I&O
11/07/24 11/08/24 11/09/24
06:59 06:59 06:59
Intake Total 0 / 1660
Balance 1660 / 1660
Review of Systems
-
History Source: Patient
All other systems: Reviewed and negative
Abdomen/GI: Reports Abdominal Pain, Nausea and Diarrhea
[2024-11-08 09:06] VITALS: BP 126/84
--- NOTE | 2024-11-08 10:46 | PTCARENOTE ---
prn zofran given through Left SQ port for nausea this morning. pt using bsc at times due to urgency with stools. c.diff negative. pt receiving IV magnesium this morning. on clear liquid diet. hyperactive BS. prn imodium also given after MD order.
--- NOTE | 2024-11-08 11:26 | W.PN.UPDATE ---
Addendum entered and electronically signed by Zak Varma MD 11/08/24 12:15:
wrong patient entry - disregard note
Original Note:
Update Note
Progress Note Update
#lumbar spinal stenosis with impingement on cauda equina
chronic ambulatory deficiency
NeuroSx eval
#colonic distension
asymptomatic
CT abd
##Severe R hydroureteronephrosis
discussed with urology - 2/2 neobladder, cont catheterizations
--- NOTE | 2024-11-08 13:24 | CM ---
CM following re: discharge planning.
Reviewed pt' chart, met with pt.
Pt is a 74 year old female, admitted with primary dx of lumbar spinal stenosis with impingement on cauda equina. PMHX of Parkinson, RLS, HX of melanoma, Hx of L nephrectomy, HTN, anxiety.
Pt reports she lives alone 2SH, 21 step to enter, has one daughter and 'she comes and goes' and pt feels she does not have enough support. pt reports she does not use any mobile devices.
PT and OT will evaluate the pt to determine a level of care at discharge.
PCP: Ly Gallardo
Pharmacy: [facility].
D/C plan: home with anticipated no needs vs VN services if indicated.
CM will follow with discharge plan updates as hospitalization progresses
[2024-11-08] MEDS: NSS 1000 IV (14:24)
--- NOTE | 2024-11-08 17:59 | W.PN.UPDATE ---
Update Note
Progress Note Update
Cross Coverage Update:
advanced to full liquid diet per patient's request
[2024-11-08] MEDS: MELATONIN 10 MG PO (21:13)
[2024-11-08 23:00] VITALS: BP 118/62
[2024-11-09] MEDS: REQUIP 0.5 MG PO ×2 (01:27→17:51)
[2024-11-09] MEDS: XANAX 0.5 MG PO ×2 (02:42→22:14)
[2024-11-09] MEDS: UNASYN IV ×4 (05:00→22:17)
[2024-11-09] MEDS: SYNTHROID 50 MCG PO (05:07)
[2024-11-09 06:11] LABS: Hematocrit 32.9 % (37.0-47.0); Hemoglobin 10.6 g/dL (12.0-16.0); Mean Corp Hgb Conc. 32.2 g/dL (33.0-37.0); Mean Corpuscular Volume 81.4 fL (81.0-99.0); Nucleated Red Blood Cells % 0 %; Platelet Count 241 10^3/uL (130-400); Red Cell Dist. Width 13.7 % (11.5-14.5)
[2024-11-09 06:31] LABS: ALT (SGPT) < 10 U/L (0-35); AST (SGOT) 18 U/L (14-36); Albumin 3.0 g/dl (3.5-5.0); Alkaline Phosphatase 73 U/L (38-126); Blood Urea Nitrogen 3 mg/dl (7-17); Calcium 8.8 mg/dl (8.4-10.2); Carbon Dioxide 27 mmol/L (22-30); Chloride 105 mmol/L (98-107); Estimated Creatinine Clearance 57 ml/min; Glucose 109 mg/dl (70-99); Potassium 3.3 mmol/L (3.5-5.1); Sodium 136 mmol/L (135-145); Total Protein 5.2 g/dl (6.3-8.2); eGFR > 60.00
[2024-11-09 07:35] LABS: Magnesium 1.8 mg/dl (1.6-2.3)
[2024-11-09] MEDS: NSS IV (07:39)
[2024-11-09] MEDS: KCL 40 MEQ PO (08:16)
[2024-11-09] MEDS: ZOLOFT 100 MG PO (08:16)
[2024-11-09] MEDS: VITAMIN B1 100 MG PO (08:16)
[2024-11-09] MEDS: ASPIR LOW (ENTERIC COATED) PO ×2 (08:16→08:43)
[2024-11-09] MEDS: SINEMET 25-100 1 TABLET PO ×4 (08:16→21:54)
[2024-11-09] MEDS: WELLBUTRIN XL (24 hour extended release) 300 MG PO (08:16)
[2024-11-09] MEDS: NSS 1000 IV (08:17)
[2024-11-09] MEDS: ZOFRAN 4 MG IV (08:30)
--- NOTE | 2024-11-09 11:16 | W.PN.HOSP.TC ---
Today's Communication/Plan
-
now more formed and less frequent stools
Cx still pending
advance diet
Possible d/c in AM if kept improving
Assessment / Plan
Assessment / Plan
74yo F with PMHX of Parkinson, RLS, HX of melanoma, Hx of L nephrectomy, HTN, anxiety came with 1 day of severe diarrhea, also had nausea over past week. Managed for colitis.
A/P:
#Diarrhea with nonspecific colitis with leukocytosis, doubt ischemic, most likely infectious vs inflammatory (less likely)
CT showed diffuse mild to moderate colonic wall thickening from the cecum to the sigmoid colon
Stool Cx
C.diff neg
Unasyn
Imodium
#Cholelithiasis with possible gall bladder wall edema, r/o cholecystitis
#Probable small hepatic hemangioma
#low-attenuation foci in the liver
#Possible perfusion anomalies
diffuse abd tenserness
Unasyn as above
MRI with MRCP neg for gall bladder pathology
#Hyponatremia
resolved
#Hypokalemia
replete
#Stable 4 mm nodule in the medial left lung base
repeat CT chest in 6-12mo with PCP
#Parkinson disease
#Anxiety/depression
#Hx of CVA with mild L residual weakness
#Hypothyroidism
#Hx of Stage 4 melanoma s/p wide excision and axillary dissection in 2021 and immunotherapy (last completed in Mar as per patient)
#L nephrectomy
#RLS
#Insomnia
cont home meds
DVT ppx Lovenox
Full code
I have spent at least 51min checking chart, test results and providing direct patient care
Anticipated Discharge: Within 24 hours
Subjective/Interval History
-
Date of Service: November 09, 2024
Objective Data
-
Labs:
Laboratory Results
11/09/24
05:57
WBC 11.2 H
Hgb 10.6 L
Hct 32.9 L
Plt Count 241
Sodium 136
Potassium 3.3 L
Chloride 105
Carbon Dioxide 27
BUN 3 L
Creatinine 0.7
Glucose 109 H
Calcium 8.8
Total Bilirubin 0.2
AST 18
ALT < 10
Alkaline Phosphatase 73
Vital Signs:
Vital Signs
Temp Pulse Resp BP Pulse Ox
97.4 F 80 20 118/62 96
11/09/24 07:50 11/09/24 07:50 11/08/24 23:00 11/08/24 23:00 11/09/24 07:50
I&O
11/08/24 11/09/24 11/10/24
06:59 06:59 06:59
Intake Total 1660 / 1660 3030 / 3030
Balance 1660 / 1660 3030 / 3030
Review of Systems
-
History Source: Patient
All other systems: Reviewed and negative
Physical Exam
-
General: Comfortable
HEENT: Normocephalic
Respiratory: Clear to Auscultation
GI: Soft, Nondistended and Tender (minimal diffuse)
Neuro: Awake, Alert, Oriented and AO x 3
Psych: Calm
[2024-11-09] MEDS: TYLENOL 650 MG PO (11:59)
--- NOTE | 2024-11-09 19:15 | VATNOTE ---
Patient with small open area of port dressing adjacent to axilla. Offered to reaccess and redress, patient declined. Explained risks and verbalized understanding. Area cleansed with chg and dressing reinforced.
[2024-11-09] MEDS: MELATONIN 10 MG PO (21:54)
[2024-11-09 23:00] VITALS: BP 138/72
[2024-11-10] MEDS: ZOFRAN 4 MG IV ×2 (00:33→08:42)
[2024-11-10 03:24] LABS: Hematocrit 34.2 % (37.0-47.0); Hemoglobin 11.2 g/dL (12.0-16.0); Mean Corp Hgb Conc. 32.7 g/dL (33.0-37.0); Mean Corpuscular Volume 80.9 fL (81.0-99.0); Nucleated Red Blood Cells % 0 %; Platelet Count 268 10^3/uL (130-400); Red Cell Dist. Width 13.7 % (11.5-14.5)
[2024-11-10 03:44] LABS: Blood Urea Nitrogen 6 mg/dl (7-17); Calcium 9.4 mg/dl (8.4-10.2); Carbon Dioxide 27 mmol/L (22-30); Chloride 102 mmol/L (98-107); Estimated Creatinine Clearance 50 ml/min; Glucose 111 mg/dl (70-99); eGFR > 60.00
[2024-11-10 03:50] LABS: Potassium 3.4 mmol/L (3.5-5.1); Sodium 134 mmol/L (135-145)
[2024-11-10] MEDS: IMODIUM 2 MG PO (04:59)
[2024-11-10] MEDS: UNASYN IV ×2 (04:59→05:03)
[2024-11-10] MEDS: SYNTHROID 50 MCG PO (05:00)
--- NOTE | 2024-11-10 05:00 | PTCARENOTE ---
Pt refused 0400 dose of Unasyn d/t loose stools and abdominal cramping.
[2024-11-10] MEDS: TYLENOL 650 MG PO (06:22)
[2024-11-10] MEDS: KCL ELIXIR 40 MEQ PO (06:37)
[2024-11-10] MEDS: ASPIR LOW (ENTERIC COATED) 81 MG PO (07:21)
[2024-11-10] MEDS: WELLBUTRIN XL (24 hour extended release) 300 MG PO (07:21)
[2024-11-10] MEDS: SINEMET 25-100 1 TABLET PO ×3 (07:21→21:06)
[2024-11-10] MEDS: REQUIP 0.5 MG PO ×3 (07:21→21:14)
[2024-11-10] MEDS: VITAMIN B1 100 MG PO (07:24)
[2024-11-10] MEDS: ZOLOFT 100 MG PO (07:24)
[2024-11-10 07:42] VITALS: BP 142/82
--- NOTE | 2024-11-10 10:46 | W.PN.HOSP.TC ---
Today's Communication/Plan
-
Copro
GI consult
Assessment / Plan
Assessment / Plan
74yo F with PMHX of Parkinson, RLS, HX of melanoma, Hx of L nephrectomy, HTN, anxiety came with 1 day of severe diarrhea, also had nausea over past week. Managed for colitis. Initially improved but then redeveloped symptoms on 11/10/24
A/P:
#Diarrhea with nonspecific colitis with leukocytosis, doubt ischemic, most likely infectious vs inflammatory (less likely)
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
CT showed diffuse mild to moderate colonic wall thickening from the cecum to the sigmoid colon
Stool Cx - Campylobacter and shigella neg
Norovirus pending
C.diff neg
Unasyn - patient declined, started cipro with low threshold to stop, depending on GI consult
Imodium, ZOfran
#Cholelithiasis with possible gall bladder wall edema, r/o cholecystitis
#Probable small hepatic hemangioma
#low-attenuation foci in the liver
#Possible perfusion anomalies
diffuse abd tenderness
MRI with MRCP neg for gall bladder pathology
#Hyponatremia
resolved
#Hypokalemia
replete
#Stable 4 mm nodule in the medial left lung base
repeat CT chest in 6-12mo with PCP
#Parkinson disease
#Anxiety/depression
#Hx of CVA with mild L residual weakness
#Hypothyroidism
#Hx of Stage 4 melanoma s/p wide excision and axillary dissection in 2021 and immunotherapy (last completed in Mar as per patient)
#L nephrectomy
#RLS
#Insomnia
cont home meds
DVT ppx Lovenox
Full code
I have spent at least 39min checking chart, test results and providing direct patient care
Anticipated Discharge: 24 - 48 hours
Subjective/Interval History
-
Date of Service: November 10, 2024
Objective Data
-
Labs:
Laboratory Results
11/10/24
03:06
WBC 9.8
Hgb 11.2 L
Hct 34.2 L
Plt Count 268
Sodium 134 L
Potassium 3.4 L
Chloride 102
Carbon Dioxide 27
BUN 6 L
Creatinine 0.8
Glucose 111 H
Calcium 9.4
Vital Signs:
Vital Signs
Temp Pulse Resp BP Pulse Ox
97.8 F 90 16 142/82 97
11/10/24 07:42 11/10/24 07:42 11/10/24 07:42 11/10/24 07:42 11/10/24 07:42
I&O
11/09/24 11/10/24 11/11/24
06:59 06:59 06:59
Intake Total 3030 / 3030 1560 / 1560
Output Total 2 / 2
Balance 3030 / 3030 1558 / 1558
Review of Systems
-
History Source: Patient
All other systems: Reviewed and negative
Abdomen/GI: Reports Abdominal Pain, Nausea and Diarrhea
[2024-11-10] MEDS: XANAX 0.5 MG PO (11:34)
--- NOTE | 2024-11-10 14:36 | CON.GI ---
Consultation
-
Date/Time Consultation Requested: 11/10/2024, 9am
Date/Time Consultation Performed: 11/10/2024, 4:30pm
Requesting Provider: Dr. Varma
Performing Provider: Dr. Matthews
Reason for Consultation: diarrhea, nausea
Medical History
Chief Complaint / HPI
Chief Complaint: nausea, diarrhea
History of Present Illness:
74-year-old female past medical history of Parkinson's, presenting with severe diarrhea and nausea over the last week. During the admission, she was found to have a leukocytosis on admission up to 16, sodium 129 on admission. Stool studies were
negative for C. difficile, stool culture so far negative still pending Shiga toxin test, norovirus negative. She was found on imaging to have pancolitis, questionable gallbladder calculi and mild gallbladder wall thickening, probable small
hemangioma, lung nodule that was stable. MRI was performed which showed no MRI evidence of gallstones, cholecystitis, choledocholithiasis, tiny simple cyst in the liver.
She states she had severe nausea for a week. Diarrhea did not start until she came to ER. Stool 'poured out of her'. + urgency and incontinence. Soreness in abdomen. No antibiotics besides what was given to her here, no unusual foods, no sick
contacts, no travel.
Reviewing the GI flowsheet, 2 loose stools were recorded yesterday.
I saw her stool in toilet today - very small amount. Per patient had 5 stools of this but nurse was unaware of this. Ongoing nausea worse after she advanced her diet but she had chicken salad with emotion.me. Zofran initially helped not helping as much.
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
No FH of colon ca or autoimmune disease.
Never had EGD.
Colonoscopy [address] Ortiz diverticadalberto, otherwise normal.
Past Medical History
Past Medical History: HTN, Psychiatric (anxiety) and Other (Parkinson's, RLS, melanoma, immune mediated colitis)
Past Surgical History: Urological (nephrectomy)
Social History
Tobacco: Non-Smoker
Alcohol: None
Drug: None
Family History
Family History: Reviewed & Not Pertinent
Allergies / Home Medications
Allergy/AdvReac Type Severity Reaction Status Date / Time
No Known Allergies Allergy Verified 09/11/24 22:04
�Medication �Instructions �Recorded
bupropion HCl 150 mg 24 hr tablet, 300 mg PO DAILY Mental 03/31/24
extended release (Wellbutrin XL) Health/Anxiety
levothyroxine 50 mcg tablet 50 mcg PO DAILY Thyroid 09/08/24
(Synthroid)
melatonin 10 mg tablet 10 mg PO HS Sleep 09/08/24
sertraline 100 mg tablet 100 mg PO DAILY Depression 09/08/24
thiamine mononitrate (vit B1) 100 100 mg PO BID Supplement #60 tabs 09/09/24
mg tablet
carbidopa 25 mg-levodopa 100 mg 1 tab PO TID 1 month #90 tabs 09/13/24
tablet
ropinirole 0.25 mg tablet 0.5 mg (2 x 0.25 mg) PO TID PRN 09/13/24
restless legs 1 month #180 tabs
aspirin 81 mg tablet,delayed 81 mg Blood Clot Prevention/Tx 09/15/24
release
ibuprofen 200 mg tablet 400 mg PO Q6H PRN Arthritic pain 09/15/24
alprazolam 0.5 mg tablet (Xanax) 0.5 mg PO DAILYPRN PRN anxiety #3 09/18/24
tabs
Review of Systems
-
All other systems: A 12 pt ROS was Negative except as stated above in HPI
Vital Signs
Temp Pulse Resp BP Pulse Ox
97.8 F 90 16 142/82 97
11/10/24 07:42 11/10/24 07:42 11/10/24 07:42 11/10/24 07:42 11/10/24 07:42
Physical Exam
Exam
General: Well Developed
HEENT: Normocephalic
Respiratory: Clear
Cardiac: Regular Rhythm
GI: Non Tender and Non Distended
Skin: Warm
Neuro: AO x 3
Hematologic/Lymphatic: No Lymphadenopathy
Psych: Calm
Results
WBC 9.8 10^3/uL (4.8-10.8) 11/10/24 03:06
Hgb 11.2 g/dL (12.0-16.0) L 11/10/24 03:06
Hct 34.2 % (37.0-47.0) L 11/10/24 03:06
MCV 80.9 fL (81.0-99.0) L 11/10/24 03:06
Plt Count 268 10^3/uL (130-400) 11/10/24 03:06
Absolute Neuts (auto) 7.2 10^3/uL (1.4-6.5) H 11/10/24 03:06
Sodium 134 mmol/L (135-145) L 11/10/24 03:06
Potassium 3.4 mmol/L (3.5-5.1) L 11/10/24 03:06
Chloride 102 mmol/L (98-107) 11/10/24 03:06
Carbon Dioxide 27 mmol/L (22-30) 11/10/24 03:06
BUN 6 mg/dl (7-17) L 11/10/24 03:06
Creatinine 0.8 mg/dL (0.6-1.0) 11/10/24 03:06
Calcium 9.4 mg/dl (8.4-10.2) 11/10/24 03:06
Total Bilirubin 0.2 mg/dl (0.2-1.3) 11/09/24 05:57
AST 18 U/L (14-36) 11/09/24 05:57
ALT < 10 U/L (0-35) 11/09/24 05:57
Alkaline Phosphatase 73 U/L (38-126) 11/09/24 05:57
Amylase 49 U/L (30-110) 11/07/24 13:08
Lipase 24 U/L (23-300) 11/07/24 13:08
Diagnostic Image Results:
Prior GI Procedures:
EGD:
Colonoscopy:
Assessment / Plan
-
74-year-old female presenting with acute diarrhea and nausea found to be hyponatremic, leukocytosis, colitis on CT this is all consistent with likely infectious etiology. Stools studies are negative but unfortunately our available labs are limited
(no PCR panel). History of immune mediated colitis but off immune therapy since June 2024.
Will stop magnesium hydroxide as this can cause diarrhea. Will also stop prn miralax and dulcolax.
Instead of imodium will try pepto.
For nausea in addition to zofran will add pepcid and carafate.
Trial of BRAT diet. Ricks last night in chicken salad may have made symptoms worse.
Encouraged pt to tell nurse when she has a BM so we can record, d/w RN.
D/w hospitalist.
If no improvement may need EGD/colo.
-
-
Thank you for consultation and allowing me to participate in the patient's care. Please call the music composition teacher GI physician during the after hours with any questions or concerns.
[2024-11-10] MEDS: SINEMET 25-100 PO (14:43)
[2024-11-10] MEDS: PINK BISMUTH 525 MG PO ×2 (17:34→22:15)
[2024-11-10] MEDS: PEPCID 20 MG PO (21:06)
[2024-11-10] MEDS: MELATONIN 10 MG PO (21:06)
[2024-11-10] MEDS: CARAFATE 1 GRAM PO (21:14)
[2024-11-10 23:00] VITALS: BP 116/65
[2024-11-11] MEDS: PINK BISMUTH 525 MG PO ×4 (02:15→22:37)
[2024-11-11] MEDS: SYNTHROID 50 MCG PO (05:39)
[2024-11-11] MEDS: TYLENOL 650 MG PO (08:01)
[2024-11-11] MEDS: REQUIP 0.5 MG PO ×2 (08:01→20:36)
[2024-11-11] MEDS: ASPIR LOW (ENTERIC COATED) 81 MG PO (08:02)
[2024-11-11] MEDS: VITAMIN B1 100 MG PO (08:02)
[2024-11-11] MEDS: ZOLOFT 100 MG PO (08:02)
[2024-11-11] MEDS: WELLBUTRIN XL (24 hour extended release) 300 MG PO (08:02)
[2024-11-11] MEDS: CARAFATE 1 GRAM PO ×4 (08:02→22:36)
[2024-11-11] MEDS: SINEMET 25-100 1 TABLET PO ×4 (08:02→22:37)
[2024-11-11 08:22] VITALS: BP 128/84
[2024-11-11 09:23] LABS: Hematocrit 36.9 % (37.0-47.0); Hemoglobin 12.0 g/dL (12.0-16.0); Mean Corp Hgb Conc. 32.5 g/dL (33.0-37.0); Mean Corpuscular Volume 80.2 fL (81.0-99.0); Nucleated Red Blood Cells % 0 %; Platelet Count 306 10^3/uL (130-400); Red Cell Dist. Width 13.8 % (11.5-14.5)
--- NOTE | 2024-11-11 09:37 | W.PN.GI.CBS2 ---
Addendum entered and electronically signed by Emily Matthews MD 11/11/24 14:42:
I saw and examined the patient.
The INFORMATION SECURITY ENGINEER or PA's note was reviewed and I agree with the note.
Comment: 74 yo f here with nausea, diarrhea, colitis suspect infectious slowly improving.
Cont pepto, pepcid, carafate, zofran.
Will add low fat to diet (had cake with icing at bedside) with low residue/low lactose..
If continues to improve plan dc tomorrow with outpatient GI follow up. Msg sent to office to set up.
GI will sign off pls call with ?s
Original Note:
Today's Communication / Plan
-
etiology of diarrhea and pancolitis related unclear-- infectious, microscopic colitis as responding to pepto(but typically would not see colitis on imaging) vs other
-mag has been stopped
stool studies neg
-started on pepto with 3 doses taken and now notes improvement this am with some form to stools
-cont Pepcid and carafate and PRN Zofran with nausea
BRAT diet -- will advance to low residue/low lactose
If recurrent symptoms may need EGD/colon.
Assessment / Plan
-
74-year-old female presenting with acute diarrhea and nausea found to be hyponatremic, leukocytosis, colitis on CT this is all consistent with likely infectious etiology. Stools studies are negative but unfortunately our available labs are limited
(no PCR panel). History of immune mediated colitis but off immune therapy since June 2024. Last [facility] colonoscopy 2018 Dr. Ortiz diverticadalberto.
diarrhea
-pancolitis
nausea
-hx immune mediated colitis 2022 with melanoma therapy
-CT with possible midl GB calculi and mild thickening/edema not seen on follow up
-liver hemangioma per CT- MR with simple hepatic cyst
-falls
-hyponatremia
other med problems:
parkinsons
depression
UTIs
Melanoma
Tubal ligation
Tonsilectomy
hx Cystocel Rectacel Mesh placed
PLAN:
etiology of diarrhea and pancolitis related unclear-- infectious, microscopic colitis as responding to pepto(but typically would not see colitis on imaging) vs other
-mag has been stopped
stool studies neg
-started on pepto with 3 doses taken and now notes improvement this am with some form to stools
-cont Pepcid and carafate and PRN Zofran with nausea
BRAT diet -- will advance to low residue/low lactose
If recurrent symptoms may need EGD/colon.
Subjective
Subjective
Date of Service: November 11, 2024
11/11 loose stools small volume overnight but now some improvement with some form to stools today on BRAT diet
Objective
Data Reviewed
Laboratory Data:
Laboratory Results
11/11/24 09:08
Laboratory Results
Magnesium 1.8 mg/dl (1.6-2.3) 11/09/24 05:57
Total Bilirubin 0.2 mg/dl (0.2-1.3) 11/09/24 05:57
AST 18 U/L (14-36) 11/09/24 05:57
ALT < 10 U/L (0-35) 11/09/24 05:57
Alkaline Phosphatase 73 U/L (38-126) 11/09/24 05:57
Amylase 49 U/L (30-110) 11/07/24 13:08
Lipase 24 U/L (23-300) 11/07/24 13:08
Vital Signs and I&O:
Vital Signs
Temp Pulse Resp BP Pulse Ox
97.9 F 82 16 128/84 99
11/11/24 07:20 11/11/24 07:20 11/11/24 07:20 11/11/24 08:22 11/11/24 07:20
I&O
11/10/24 11/11/24 11/12/24
06:59 06:59 06:59
Intake Total 1560 / 1560 960 / 960
Output Total
Balance 1558 / 1558 960 / 960
Physical Exam
Physical Exam
HEENT: Anicteric and Moist mucous membranes
Cardiology: Normal Sinus Rhythm
Pulmonary: Clear
GI: Non Distended and Non Tender
Extremities: No Edema
Neuro: Non Focal
[2024-11-11] MEDS: ZOFRAN 4 MG IV (09:52)
[2024-11-11 10:29] LABS: Blood Urea Nitrogen 6 mg/dl (7-17); Calcium 9.5 mg/dl (8.4-10.2); Chloride 97 mmol/L (98-107); Estimated Creatinine Clearance 57 ml/min; Glucose 115 mg/dl (70-99); Potassium 3.7 mmol/L (3.5-5.1); eGFR > 60.00
[2024-11-11 10:40] LABS: Carbon Dioxide 24 mmol/L (22-30); Sodium 130 mmol/L (135-145)
--- NOTE | 2024-11-11 11:54 | CM ---
CM following re: discharge planning.
Reviewed pt' chart, met with pt.
Pt lives alone 2SH, 21 step to enter, has one daughter and 'she comes and goes' and pt feels she does not have enough support. Pt reports she does not use any mobile devices.
PT and OT will evaluate the pt to determine a level of care at discharge.
D/C plan: home with anticipated no needs vs VN services if indicated.
CM will follow with discharge plan updates as hospitalization progresses
--- NOTE | 2024-11-11 12:33 | W.PN.HOSP.TC ---
Today's Communication/Plan
-
Monitor vitals
See plan
Start IV fluids
Monitor BMs
Hopeful discharge soon
Assessment / Plan
Assessment / Plan
74yo F with PMHX of Parkinson, RLS, HX of melanoma, Hx of L nephrectomy, HTN, anxiety came with 1 day of severe diarrhea, also had nausea over past week. Managed for colitis. Initially improved but then redeveloped symptoms on 11/10/24
A/P:
#Diarrhea with nonspecific colitis with leukocytosis, doubt ischemic, most likely infectious vs inflammatory (less likely)
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
CT showed diffuse mild to moderate colonic wall thickening from the cecum to the sigmoid colon
Stool Cx - Campylobacter and shigella neg
Norovirus neg
C.diff neg
Unasyn - patient declined, no need for antibiotic, discussed with GI. DC Cipro
Imodium, ZOfran
Started on Pepto-Bismol as well
Monitor BMs
GI following
#Cholelithiasis with possible gall bladder wall edema, r/o cholecystitis
#Probable small hepatic hemangioma
#low-attenuation foci in the liver
#Possible perfusion anomalies
diffuse abd tenderness
MRI with MRCP neg for gall bladder pathology
#Hyponatremia
Start gentle hydration
#Hypokalemia
replete
#Stable 4 mm nodule in the medial left lung base
repeat CT chest in 6-12mo with PCP
#Parkinson disease
#Anxiety/depression
#Hx of CVA with mild L residual weakness
#Hypothyroidism
#Hx of Stage 4 melanoma s/p wide excision and axillary dissection in 2021 and immunotherapy (last completed in Mar as per patient)
#L nephrectomy
#RLS
#Insomnia
cont home meds
DVT ppx Lovenox
Full code
General: Well Developed, Well Nourished and No Apparent Distress
HEENT: NormoCephalic and Anicteric
Respiratory: Clear; No Wheezes or Crackles
Cardiac: S1/S2, Regular Rhythm
GI: Soft, Non Distended
Musculoskeletal:No Edema
Neuro: Awake, Alert, Oriented and AO x 3
Psych: Anxious
Anticipated Discharge: Within 24 hours
Subjective/Interval History
-
Date of Service: November 11, 2024
Denies pain
Objective Data
-
Labs:
Laboratory Results
11/11/24
09:08
WBC 8.5
Hgb 12.0
Hct 36.9 L
Plt Count 306
Sodium 130 L
Potassium 3.7
Chloride 97 L
Carbon Dioxide 24
BUN 6 L
Creatinine 0.7
Glucose 115 H
Calcium 9.5
Vital Signs:
Vital Signs
Temp Pulse Resp BP Pulse Ox
97.9 F 82 16 128/84 99
11/11/24 07:20 11/11/24 07:20 11/11/24 07:20 11/11/24 08:22 11/11/24 07:20
I&O
11/10/24 11/11/24 11/12/24
06:59 06:59 06:59
Intake Total 1560 / 1560 960 / 960
Output Total 2 / 2
Balance 1558 / 1558 960 / 960
[2024-11-11] MEDS: NSS 1000 IV (12:49)
--- NOTE | 2024-11-11 14:19 | PTCARENOTE ---
pt requesting CD of scans. request obtained and placed in patient chart.
[2024-11-11] MEDS: PEPCID 20 MG PO (20:31)
[2024-11-11] MEDS: MELATONIN 10 MG PO (22:36)
[2024-11-11] MEDS: XANAX 0.5 MG PO (22:37)
[2024-11-12 01:20] VITALS: BP 156/88
[2024-11-12 05:07] LABS: Hematocrit 33.5 % (37.0-47.0); Hemoglobin 10.9 g/dL (12.0-16.0); Mean Corp Hgb Conc. 32.5 g/dL (33.0-37.0); Mean Corpuscular Volume 80.1 fL (81.0-99.0); Nucleated Red Blood Cells % 0 %; Platelet Count 291 10^3/uL (130-400); Red Cell Dist. Width 13.4 % (11.5-14.5)
[2024-11-12 05:59] LABS: Blood Urea Nitrogen 4 mg/dl (7-17); Calcium 9.0 mg/dl (8.4-10.2); Carbon Dioxide 23 mmol/L (22-30); Chloride 104 mmol/L (98-107); Estimated Creatinine Clearance 57 ml/min; Glucose 96 mg/dl (70-99); Potassium 3.5 mmol/L (3.5-5.1); Sodium 132 mmol/L (135-145); eGFR > 60.00
[2024-11-12] MEDS: SYNTHROID 50 MCG PO (06:02)
[2024-11-12] MEDS: PINK BISMUTH 525 MG PO ×2 (06:02→11:33)
[2024-11-12] MEDS: REQUIP 0.5 MG PO (06:02)
[2024-11-12] MEDS: CARAFATE 1 GRAM PO ×2 (08:02→11:34)
[2024-11-12] MEDS: WELLBUTRIN XL (24 hour extended release) 300 MG PO (08:12)
[2024-11-12] MEDS: VITAMIN B1 100 MG PO (08:12)
[2024-11-12] MEDS: ASPIR LOW (ENTERIC COATED) PO ×2 (08:12→08:13)
[2024-11-12] MEDS: ZOLOFT 100 MG PO (08:12)
[2024-11-12] MEDS: SINEMET 25-100 1 TABLET PO ×2 (08:12→12:22)
[2024-11-12 08:28] VITALS: BP 152/92
--- NOTE | 2024-11-12 11:43 | W.PN.HOSP.TC ---
Addendum entered and electronically signed by Armani Lemus MD 11/12/24 14:02:
Abdominal pain improved
Original Note:
Today's Communication/Plan
-
Monitor vital signs and see plan
Discharge today
Time of discharge 37 minutes
Assessment / Plan
Assessment / Plan
74yo F with PMHX of Parkinson, RLS, HX of melanoma, Hx of L nephrectomy, HTN, anxiety came with 1 day of severe diarrhea, also had nausea over past week. Managed for colitis. Initially improved but then redeveloped symptoms on 11/10/24
A/P:
#Diarrhea with nonspecific colitis with leukocytosis, doubt ischemic, most likely infectious vs inflammatory (less likely)
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
CT showed diffuse mild to moderate colonic wall thickening from the cecum to the sigmoid colon
Stool Cx - Campylobacter and shigella neg
Norovirus neg
C.diff neg
Unasyn - patient declined, no need for antibiotic, discussed with GI. DC Cipro
Imodium, ZOfran
Started on Pepto-Bismol as well
Monitor BMs; now improving. Tolerating diet. Follow-up with GI outpatient
GI following
#Cholelithiasis with possible gall bladder wall edema, r/o cholecystitis
#Probable small hepatic hemangioma
#low-attenuation foci in the liver
#Possible perfusion anomalies
diffuse abd tenderness
MRI with MRCP neg for gall bladder pathology
#Hyponatremia
Improving, DC further fluids
#Hypokalemia
#Stable 4 mm nodule in the medial left lung base
repeat CT chest in 6-12mo with PCP
#Parkinson disease
#Anxiety/depression
#Hx of CVA with mild L residual weakness
#Hypothyroidism
#Hx of Stage 4 melanoma s/p wide excision and axillary dissection in 2021 and immunotherapy (last completed in Mar as per patient)
#L nephrectomy
#RLS
#Insomnia
cont home meds
DVT ppx Lovenox
Full code
General: Well Developed, Well Nourished and No Apparent Distress
HEENT: NormoCephalic and Anicteric
Respiratory: Clear; No Wheezes or Crackles
Cardiac: S1/S2, Regular Rhythm
GI: Soft, Non Distended
Musculoskeletal:No Edema
Neuro: Awake, Alert, Oriented and AO x 3
Psych: Anxious
Anticipated Discharge: Today
Subjective/Interval History
-
Date of Service: November 12, 2024
feeling better
Objective Data
-
Labs:
Laboratory Results
11/12/24
04:41
WBC 10.3
Hgb 10.9 L
Hct 33.5 L
Plt Count 291
Sodium 132 L
Potassium 3.5
Chloride 104
Carbon Dioxide 23
BUN 4 L
Creatinine 0.7
Glucose 96
Calcium 9.0
Vital Signs:
Vital Signs
Temp Pulse Resp BP Pulse Ox
97.5 F 80 18 152/92 95
11/12/24 01:20 11/12/24 01:20 11/12/24 01:20 11/12/24 08:28 11/12/24 01:20
I&O
11/11/24 11/12/24 11/13/24
06:59 06:59 06:59
Intake Total 960 / 960 1740 / 1740
Balance 960 / 960 1740 / 1740
--- NOTE | 2024-11-12 11:48 | W.DCSUMMARY ---
Discharge Summary
Discharge Data
Date of Admission: 11/07/24
Date of Discharge: 11/12/24
-
Pending Results: No
Hospital Course
74-year-old female with past medical history of restless leg syndrome, history of melanoma, Parkinson's, left nephrectomy, hypertension, anxiety, depression, hypothyroidism, CVA came to the hospital with diarrhea along with nausea. Imaging was
consistent with nonspecific colitis. Patient was seen by gastroenterology throughout hospitalization. It was determined the patient symptoms likely secondary to infectious colitis possibly viral in nature. Stool studies were done and were
negative for bacterial infection. Initially patient was on antibiotics which was discontinued. Over time patient's symptoms continue to improve and she was able to tolerate low residue diet. On this hospitalization she also had MRI MRCP which was
negative for gallbladder pathology. Since her symptoms continue to improve and she was able to tolerate diet, she was then discharged home with instructions to follow-up with all her physicians outpatient.
Discharge Plan
-
Patient Disposition: Home (Routine Discharge)
Discharge Diagnosis/Procedures: Colitis
Hyponatremia
Hypokalemia
4 mm nodule in medial left lung base
Diet: Low Residue
Activity: As tolerated
Driving Restrictions: As prior to admission
Bathing Restrictions: None
Activity Restrictions/Additional Instructions:
repeat CT chest in 6-12mo with PCP
Referrals:
Emily Matthews MD [Active, Gastroenterology] - in four to six weeks
Ly Gallardo DO [Family Provider, Family Practice] - in less than 1 week
Prescriptions:
New
sucralfate 1 gram Tablet
1 g PO ACHS Qty: 120 0RF
bismuth subsalicylate [Stomach Relief] 262 mg/15 mL Suspension
525 mg PO Q4HPRN PRN (Reason: diarrhea) Qty: 0 0RF
famotidine 20 mg Tablet
20 mg PO DAILY@2000 Qty: 30 0RF
ondansetron HCl 4 mg tablet
4 mg PO Q8H PRN (Reason: nausea and vomiting) 5 Days Qty: 15 0RF
Continued
bupropion HCl [Wellbutrin XL] 150 mg Tablet Extended Release 24 Hr
300 mg PO DAILY
Rx Instructions:
takes two tablets daily-- total of 300mg daily
levothyroxine [Synthroid] 50 mcg Tablet
50 mcg PO DAILY
sertraline 100 mg Tablet
100 mg PO DAILY
melatonin 10 mg Tablet
10 mg PO HS
thiamine mononitrate (vit B1) 100 mg Tablet
100 mg PO BID Qty: 60 0RF
Rx Instructions:
Daily
ropinirole 0.25 mg Tablet
0.5 mg PO TID PRN (Reason: restless legs) 30 Days Qty: 180 0RF
aspirin 81 mg Tablet,Delayed Release (Dr/Ec)
81 mg PO Q OTHER DAY
Rx Instructions:
3 times week
carbidopa-levodopa 25-100 mg Tablet
1 tab PO QID
alprazolam [Xanax] 0.5 mg Tablet
0.5 mg PO BID PRN (Reason: anxiety/ elevated stress level)
Held
ibuprofen 200 mg Tablet
400 mg PO Q6H PRN (Reason: Arthritic pain)
Hold Instructions: Restart when abdominal symptoms improved
Discharge Orders:
Discharge Patient (As Directed); Ordered 11/12/24
Ordered By: Armani Lemus
Discharge Date and Time
Discharge Date/Time: 11/12/24 14:40
Print Language: JAPANESE
--- NOTE | 2024-11-12 12:17 | CM ---
CM following re: discharge planning.
Reviewed pt's chart, met with pt.
Discharge order noted. Pt is aware, expressed her agreement with discharge and she stated her daughter will transport home.
IMM reviewed, placed on chart, pt has a copy.
No after care VN needs identified.
D/c plan: home no needs. Daughter to transport.
[2024-11-12 12:51] VITALS: BP 132/80
== END 2024-11-12 14:40 | disposition home or self-care (01) | DRG 392 ==
LOC: 2 NORTH 18:27
PROVIDERS: ADMITTING PHYSICIAN Internal Medicine; ATTENDING PHYSICIAN Internal Medicine; CONSULT PHYSICIAN Internal Medicine Gastroenterology; EMERGENCY PHYSICIAN Emergency Medicine; FAMILY PHYSICIAN Internal Medicine
DX: A09 Infectious gastroenteritis and colitis, unspecified (principal); E87.1 Hypo-osmolality and hyponatremia; I69.354 Hemiplegia and hemiparesis following cerebral infarction affecting left non-dominant side; G20.A1 Parkinson's disease without dyskinesia, without mention of fluctuations; F41.9 Anxiety disorder, unspecified; F32.A Depression, unspecified; E03.9 Hypothyroidism, unspecified; G25.81 Restless legs syndrome; E87.6 Hypokalemia; Z85.820 Personal history of malignant melanoma of skin; G47.00 Insomnia, unspecified; Z79.899 Other long term (current) drug therapy
CPT/HCPCS: 74177; 74183; 80048; 80053; 81003; 81015; 82150; 83690; 83735; 84443; 84484; 85025; 87045; 87046; 87324; 87427; 87449; 87798; 89055; 93005; 96361; 96365; 96375; 99285; A9575; Q9967

== ENCOUNTER 2024-11-17 09:19 | Inpatient (IN) | payer MEDICARE, SELFPAY ==
[2024-11-16 21:13] VITALS: BP 132/83
[2024-11-16 22:57] LABS: Hematocrit 39.8 % (37.0-47.0); Hemoglobin 13.2 g/dL (12.0-16.0); Mean Corp Hgb Conc. 33.2 g/dL (33.0-37.0); Mean Corpuscular Volume 78.7 fL (81.0-99.0); Nucleated Red Blood Cells % 0 %; Platelet Count 397 10^3/uL (130-400); Red Cell Dist. Width 14.0 % (11.5-14.5)
[2024-11-16 23:23] LABS: ALT (SGPT) < 10 U/L (0-35); AST (SGOT) 23 U/L (14-36); Albumin 3.6 g/dl (3.5-5.0); Alkaline Phosphatase 85 U/L (38-126); Blood Urea Nitrogen 10 mg/dl (7-17); Calcium 10.2 mg/dl (8.4-10.2); Carbon Dioxide 21 mmol/L (22-30); Chloride 101 mmol/L (98-107); Glucose 111 mg/dl (70-99); Lipase 24 U/L (23-300); Potassium 3.7 mmol/L (3.5-5.1); Sodium 130 mmol/L (135-145); Total Protein 6.2 g/dl (6.3-8.2); eGFR 53.39
--- NOTE | 2024-11-17 01:08 | ED.GENMED ---
ED Provider Triage
<Farhan Canseco MD, Resident - Last Filed: 11/17/24 05:14>
-
Patient seen by provider in Triage?: Seen in Triage
History of Present Illness
<Farhan Canseco MD, Resident - Last Filed: 11/17/24 05:14>
General
Chief Complaint: Abdominal Pain
Source: patient
Exam Limitations: none
Time Seen by Provider: 11/17/24 00:47
History of Present Illness
History of Present Illness:
Patient is complaining of constant, severe, dull, localized lower abdominal pain associated with nausea, and multiple episodes of nonbloody vomiting, nonbloody diarrhea. She was recently discharged from [facility] with a diagnosis of
colitis most likely viral and asked to follow-up with chief clerk on Monday. Her symptoms returned on and they were much worse than initial. She is not able to tolerate per oral intake and said that she lost around 15 pounds since
the past 3 weeks. No fever, chills, weakness, dizziness, sick contacts, new dietary changes, sore throat.
Past History
<Farhan Canseco MD, Resident - Last Filed: 11/17/24 05:14>
Past History
ED Past Medical History: Psychiatric (Anxiety/depression) and Other (UTIs, Melanoma, )
ED Past Surgical History: Gynecological (Tubal ligation), Tonsilectomy and Other (Mesh placed. Cystocel/Rectacel)
Social History
Tobacco: Non-smoker
Alcohol: None
Personal:
Living: with family
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
Family History
Family History: Other (Noncontributory)
Review of Systems
<Farhan Canseco MD, Resident - Last Filed: 11/17/24 05:14>
Review of Systems
Allergies reviewed?: Yes
All Other Systems: ROS reviewed and negative except as documented in HPI and ROS
Phy Exam
<Farhan Canseco MD, Resident - Last Filed: 11/17/24 05:14>
General Physical Exam
General Presentation: well appearing and no apparent distress
General Skin: warm
General Habitus: normal
General Mental: alert
Cardiovascular Exam
Cardiovascular Exam: regular rate/rhythm and no edema
Pulmonary Exam
Pulmonary Exam: lungs clear and no respiratory distress
Gastrointestinal Exam
Gastrointestinal Exam: normal bowel sounds, non tender, soft and non distended
Neurological Exam
Neurological Exam: alert and oriented x3
Skin Exam
Skin Exam: normal color, warm/dry and no rash
Course
<Farhan Canseco MD, Resident - Last Filed: 11/17/24 05:14>
Orders/Labs/Results
Orders:
Orders
11/16/24 21:17
Urinalysis Reflex To Culture Urgent
Date Specimen was Collected: 11/16/24
Time Specimen was Collected: 21:17
11/16/24 22:38
Complete Blood Count/With Diff Urgent
Comprehensive Metabolic Panel Urgent
Lipase Urgent
11/17/24 01:14
0.9% Sodium Chloride 500 ml [Nss] 500 ml IV BOLUS
11/17/24 01:15
Ondansetron Injectable [Zofran] 4 mg IV NOW PRN
11/17/24 03:10
Metoclopramide [Reglan] 10 mg IV NOW STA
11/17/24 05:09
Lorazepam [Ativan] 1 mg IV NOW STA
11/17/24 05:26
diazePAM [Valium Injection] 2 mg IV NOW STA
11/17/24 06:13
Urinalysis Reflex To Culture Urgent
Date Specimen was Collected: 11/17/24
Time Specimen was Collected: 06:14
Urine Microscopic Reflex Cult Urgent
Urine Culture Urgent
KELSY Source: U
Specimen Description:
Date Specimen was Collected: 11/17/24
Time Specimen was Collected: 06:14
Abnormal Lab Results
11/16/24 11/17/24
22:38 06:13
WBC 13.9 H 10^3/uL
(4.8-10.8)
MCV 78.7 L fL
(81.0-99.0)
MCH 26.1 L pg
(27.0-31.0)
Abs Immat Gran (auto) 0.1 H 10^3/uL
(0-0.05)
Absolute Neuts (auto) 10.0 H 10^3/uL
(1.4-6.5)
Absolute Monos (auto) 1.6 H 10^3/uL
(0.1-0.6)
Immature Gran % 1.0 H %
(0-0.5)
Lymphocytes % 12.2 L %
(20.5-51.1)
Monocytes % 11.3 H %
(1.7-9.3)
Sodium 130 L mmol/L
(135-145)
Carbon Dioxide 21 L mmol/L
(22-30)
Creatinine 1.1 H mg/dL
(0.6-1.0)
Glucose 111 H mg/dl
(70-99)
Total Protein 6.2 L g/dl
(6.3-8.2)
Ur Occult Blood Reflex 4+ A
(Negative)
Leukocyte Esterase Rfl 3+ A
(Negative)
Urine RBC 16-20 A /HPF
(0-2)
Urine WBC (Reflex) >100 A /HPF
(0-5)
Urine Bacteria (Reflex) Few A
(Negative)
Urine Albumin (Reflex) 3+ A
(Neg - Trace)
11/16/24 22:38
11/16/24 22:38
Vital Signs
Initial and Last Documented VS:
Initial Vital Signs
Temp Pulse Resp BP Pulse Ox
97.9 F 102 20 132/83 95
11/16/24 21:13 11/16/24 21:13 11/16/24 21:13 11/16/24 21:13 11/16/24 21:13
Last Documented Vital Signs
Temp Pulse Resp BP Pulse Ox
97.9 F 95 18 125/70 96
11/16/24 21:13 11/17/24 05:00 11/17/24 05:00 11/17/24 05:00 11/17/24 05:00
<Wayne Villalobos, DO - Last Filed: 11/17/24 07:37>
Orders/Labs/Results
Orders:
Orders
11/16/24 21:17
Urinalysis Reflex To Culture Urgent
Date Specimen was Collected: 11/16/24
Time Specimen was Collected: 21:17
11/16/24 22:38
Complete Blood Count/With Diff Urgent
Comprehensive Metabolic Panel Urgent
Lipase Urgent
11/17/24 01:14
0.9% Sodium Chloride 500 ml [Nss] 500 ml IV BOLUS
11/17/24 01:15
Ondansetron Injectable [Zofran] 4 mg IV NOW PRN
11/17/24 03:10
Metoclopramide [Reglan] 10 mg IV NOW STA
11/17/24 05:09
Lorazepam [Ativan] 1 mg IV NOW STA
11/17/24 05:26
diazePAM [Valium Injection] 2 mg IV NOW STA
11/17/24 06:13
Urinalysis Reflex To Culture Urgent
Date Specimen was Collected: 11/17/24
Time Specimen was Collected: 06:14
Urine Microscopic Reflex Cult Urgent
Urine Culture Urgent
KELSY Source: U
Specimen Description:
Date Specimen was Collected: 11/17/24
Time Specimen was Collected: 06:14
Abnormal Lab Results
11/16/24 11/17/24
22:38 06:13
WBC 13.9 H 10^3/uL
(4.8-10.8)
MCV 78.7 L fL
(81.0-99.0)
MCH 26.1 L pg
(27.0-31.0)
Abs Immat Gran (auto) 0.1 H 10^3/uL
(0-0.05)
Absolute Neuts (auto) 10.0 H 10^3/uL
(1.4-6.5)
Absolute Monos (auto) 1.6 H 10^3/uL
(0.1-0.6)
Immature Gran % 1.0 H %
(0-0.5)
Lymphocytes % 12.2 L %
(20.5-51.1)
Monocytes % 11.3 H %
(1.7-9.3)
Sodium 130 L mmol/L
(135-145)
Carbon Dioxide 21 L mmol/L
(22-30)
Creatinine 1.1 H mg/dL
(0.6-1.0)
Glucose 111 H mg/dl
(70-99)
Total Protein 6.2 L g/dl
(6.3-8.2)
Ur Occult Blood Reflex 4+ A
(Negative)
Leukocyte Esterase Rfl 3+ A
(Negative)
Urine RBC 16-20 A /HPF
(0-2)
Urine WBC (Reflex) >100 A /HPF
(0-5)
Urine Bacteria (Reflex) Few A
(Negative)
Urine Albumin (Reflex) 3+ A
(Neg - Trace)
11/16/24 22:38
11/16/24 22:38
Vital Signs
Initial and Last Documented VS:
Initial Vital Signs
Temp Pulse Resp BP Pulse Ox
97.9 F 102 20 132/83 95
11/16/24 21:13 11/16/24 21:13 11/16/24 21:13 11/16/24 21:13 11/16/24 21:13
Last Documented Vital Signs
Temp Pulse Resp BP Pulse Ox
97.9 F 95 18 125/70 96
11/16/24 21:13 11/17/24 05:00 11/17/24 05:00 11/17/24 05:00 11/17/24 05:00
<Farhan Canseco MD, Resident - Last Filed: 11/17/24 05:14>
MDM/Problems Addressed
Differential Diagnosis Includes:
viral colitis, bacterial colitis, pancreatitis, IBS,
MDM/Problems Addressed:
CBC shows wbc of 13.3, most likely reactive
CMP shows mild hyponatremia with Na of 130, creatinine is 1.1 with a baseline of .7, started patient on iv fluids
UA pending
Will start patient on acetaminophen for pain and Iv fluids for dehydration
- will admit patient for intractable nausea ,diarrhea, and vomiting.
<Farhan Canseco MD, Resident - Last Filed: 11/17/24 05:14>
*Pulse Oximetry
SaO2: 95
Oxygen Mode of Delivery: Room air
Patient hypoxic: no
*Critical Care Note
Total Time (30-74mins, 75-104mins- exclusive of procedures): Not Applicable
ED Attending Note
<Farhan Canseco MD, Resident - Last Filed: 11/17/24 05:14>
-
Portions of this chart may have been created with voice recognition software.� Occasional wrong word or��sound alike� substitutions may have occurred due to the inherent limitations of voice recognition software.
<Wayne Villalobos, DO - Last Filed: 11/17/24 07:37>
ED Attending Note
Patient seen and examined by attending physician: Yes
ED Attending Note:
Note:
CHIEF COMPLAINT(S)
Intractable nausea, vomiting, and diarrhea.
HISTORY OF PRESENT ILLNESS
The patient is a 74-year-old female who presents with severe, intractable nausea, vomiting, and diarrhea. The patient describes the sensations as 'horrible' and indicates significant distress. The symptoms are persistent, requiring multiple visits
to the hospital for relief. The patient has received intravenous fluids during past visits, which have provided some relief. The continuation of these symptoms has led to the current hospital admission, as previously the patient was in the hospital
on Monday and then again on . The patient is requesting additional medication to help alleviate her symptoms, as she feels like 'a wreck.'
PHYSICAL EXAM
General: Alert, no acute distress.
Skin: Warm, dry.
Head: Normocephalic, atraumatic.
Neck: Supple, trachea midline.
Eye Ears, nose, mouth, and throat: Oral mucosa moist.
Cardiovascular: Normal peripheral perfusion, No edema.
Respiratory: Respirations are non-labored.
Gastrointestinal: Abdomen nondistended.
Back: Normal range of motion, Normal alignment.
Musculoskeletal: Normal range of motion, normal strength.
Neurological: Alert and oriented to person, place, time, and situation, No focal neurological deficit observed.
Psychiatric: Cooperative, appropriate mood & affect.
PLAN
Administer antiemetic medications to alleviate nausea and vomiting. Consider admission for further monitoring and management due to the persistence and severity of symptoms.
DIFFERENTIAL DIAGNOSIS
The Differential Diagnosis includes, in no particular order and is not limited to:
1. Gastroenteritis
2. Medication-induced nausea/vomiting
3. Bowel obstruction
4. Peptic ulcer disease
5. Acute pancreatitis
6. Viral infection
7. Food poisoning
8. Recurrent small bowel obstruction
9. Gallbladder disease
10. Metabolic disorder
Disposition:
SUMMARY OF ENCOUNTER
A 74-year-old female presented to the emergency department with intractable nausea, vomiting, and diarrhea. Despite multiple administrations of intravenous fluids and antiemetic medications, the patient continued to experience symptoms. Due to the
severity and persistence of these symptoms, admission to the hospital was deemed necessary.
DISPOSITION
Admit.
MANAGEMENT OF THE PATIENTS CARE WAS DISCUSSED WITH
The patient was seen in conjunction with a resident. I reviewed and agreed with the residents history and treatment plan.
PLAN
Administer antiemetic medications to manage nausea and vomiting. Consider admission for further monitoring and management of persistent symptoms.
MEDICAL DECISION MAKING
-Complexity of Data Reviewed:
Chronic conditions affecting care:
1. Gastroenteritis
2. Medication-induced nausea/vomiting
3. Bowel obstruction
4. Peptic ulcer disease
5. Acute pancreatitis
6. Viral infection
7. Food poisoning
8. Recurrent small bowel obstruction
9. Gallbladder disease
10. Metabolic disorder
Category 3:
Discussion of management with a resident physician regarding the patients care plan involving observation and treatment.
DIAGNOSIS
Nausea and vomiting, unspecified (R11.2)
Diarrhea, unspecified (R19.7)
Discharge Plan
Departure
Patient Disposition: Admit
Date of Disposition: 11/17/24
Time of Disposition: 05:12
Presentation/result/management discussed w/ accepting MD/DO: Hospitalist
Discharge Problem:
Pancolitis
Prescriptions:
No Action
bupropion HCl [Wellbutrin XL] 150 mg Tablet Extended Release 24 Hr
300 mg PO DAILY
Rx Instructions:
takes two tablets daily-- total of 300mg daily
levothyroxine [Synthroid] 50 mcg Tablet
50 mcg PO DAILY
sertraline 100 mg Tablet
100 mg PO DAILY
melatonin 10 mg Tablet
10 mg PO HS
thiamine mononitrate (vit B1) 100 mg Tablet
100 mg PO BID Qty: 60 0RF
Rx Instructions:
Daily
ropinirole 0.25 mg Tablet
0.5 mg PO TID PRN (Reason: restless legs) 30 Days Qty: 180 0RF
aspirin 81 mg Tablet,Delayed Release (Dr/Ec)
81 mg PO Q OTHER DAY
Rx Instructions:
3 times week
ibuprofen 200 mg Tablet
400 mg PO Q6H PRN (Reason: Arthritic pain)
carbidopa-levodopa 25-100 mg Tablet
1 tab PO QID
alprazolam [Xanax] 0.5 mg Tablet
0.5 mg PO BID PRN (Reason: anxiety/ elevated stress level)
sucralfate 1 gram Tablet
1 g PO ACHS Qty: 120 0RF
bismuth subsalicylate [Stomach Relief] 262 mg/15 mL Suspension
525 mg PO Q4HPRN PRN (Reason: diarrhea) Qty: 0 0RF
famotidine 20 mg Tablet
20 mg PO DAILY@1999 Qty: 30 0RF
ondansetron HCl 4 mg tablet
4 mg PO Q8H PRN (Reason: nausea and vomiting) 5 Days Qty: 15 0RF
Referrals:
UNKNOWN - PT DOES,NOT KNOW [Family Provider]
Interventions
Interventions:
*Risk Screen - Suicide Last Done: 11/16/24 21:16
*General Assessment Last Done: 11/16/24 21:16
*Neglect/Abuse Screening Last Done: 11/16/24 21:16
*ED COVID-19 Vaccine History Last Done: 11/16/24 21:16
*ED Influenza Vaccine History Last Done: 11/16/24 21:16
[facility] Assessment Last Done: 11/17/24 00:00
Discharge Date and Time
Print Language: SAUDI ARABIAN
[2024-11-17] MEDS: NSS 500 IV (01:46)
[2024-11-17] MEDS: ZOFRAN 4 MG IV (01:47)
[2024-11-17] MEDS: REGLAN 10 MG IV (03:15)
[2024-11-17 05:00] VITALS: BP 125/70
[2024-11-17] MEDS: VALIUM INJECTION 2 MG IV (05:31)
[2024-11-17 06:22] LABS: Urine Character Slightly Cloudy (Clear)
[2024-11-17 06:47] LABS: Urine Red Blood Cell 16-20 /HPF (0-2); Urine Squamous Cell 16-20 /LPF (Few)
[2024-11-17 06:48] LABS: Urine White Cell >100 /HPF (0-5)
--- NOTE | 2024-11-17 08:30 | HPS.HSE ---
Family Physician
-
Family Physician: NOT KNOW UNKNOWN - PT DOES
Chief Complaint
-
nausea, vomiting, abd pain, diarrhea
History of Present Illness
74yo F with PMHX of Parkinson, RLS, HX of melanoma, Hx of L nephrectomy, HTN, anxiety came with 1 day of recurrent diarrhea, nausea and vomiting. Discharged from few days ago with same complains and had extensive w/u at that time with negative
stool Cx. MRI abd also was done and was neg. CT was concerning for colitis. PAtient was d/c on bismuth, pepcid, PPI, carafate, however it did not help. No other complains noted. No recent change in her ususal home medsication before onset of the
symptoms 2 weeks ago.
Medical History
Past Medical History
Past Medical History: Reports Other
Additional Past Medical History:
see above
Past Surgical History: Reports Other
Additional Past Surgical History:
See above
Social History
Tobacco: Non-smoker
Alcohol: None
Drug: None
Family History
Family History: Not pertinent
Allergies / Home Medications
Allergies reflects when Allergies were last updated in [facility].
Home Medications with original date entered in [facility]
Allergy/Medication List:
Allergies
Allergy/AdvReac Type Severity Reaction Status Date / Time
No Known Allergies Allergy Verified 11/16/24 21:16
Home Medications
bupropion HCl 150 mg 24 hr tablet, extended release (Wellbutrin XL) 300 mg PO DAILY Mental Health/Anxiety 03/31/24
levothyroxine 50 mcg tablet (Synthroid) 50 mcg PO DAILY Thyroid 09/08/24
melatonin 10 mg tablet 10 mg PO HS Sleep 09/08/24
sertraline 100 mg tablet 100 mg PO DAILY Depression 09/08/24
thiamine mononitrate (vit B1) 100 mg tablet 100 mg PO BID Supplement #60 tabs 09/09/24
ropinirole 0.25 mg tablet 0.5 mg (2 x 0.25 mg) PO TID PRN restless legs 1 month #180 tabs 09/13/24
aspirin 81 mg tablet,delayed release 81 mg PO Q OTHER DAY Blood Clot Prevention/Tx 09/15/24
ibuprofen 200 mg tablet 400 mg PO Q6H PRN Arthritic pain 09/15/24
Held on 11/12/24. Instructions: Restart when abdominal symptoms improved
alprazolam 0.5 mg tablet (Xanax) 0.5 mg PO BID PRN anxiety/ elevated stress level 11/11/24
carbidopa 25 mg-levodopa 100 mg tablet 1 tab PO QID 11/11/24
bismuth subsalicylate 262 mg/15 mL oral suspension (Stomach Relief) 525 mg (30.0573 mL) PO Q4HPRN PRN diarrhea #0 mL 11/12/24
famotidine 20 mg tablet 20 mg PO DAILY@2000 #30 tabs 11/12/24
ondansetron HCl 4 mg tablet 4 mg PO Q8H PRN nausea and vomiting 5 days #15 tabs 11/12/24
sucralfate 1 gram tablet 1 g PO ACHS #120 tabs 11/12/24
Review of Systems
-
History Source: Patient
A 12 point ROS was completed and negative except as noted: Yes
Abdomen/GI: Reports See HPI
Physical Exam
Vital Signs
Vital Signs
Temp Pulse Resp BP Pulse Ox
97.9 F 95 18 125/70 96
11/16/24 21:13 11/17/24 05:00 11/17/24 05:00 11/17/24 05:00 11/17/24 05:00
Physical Exam
General: Well Developed, Well Nourished and No Apparent Distress
HEENT: NormoCephalic, Anicteric and Moist mucous membranes
Respiratory: Clear; No Wheezes or Crackles
Cardiac: S1/S2; No Tachycardia or Murmur
GI: Soft, Non Tender, Non Distended and Normal Bowel Sounds
Genito-urinary: No costovertebral tender
Musculoskeletal: No Clubbing, No Cyanosis and No Edema
Skin: Warm
Neuro: Awake, Alert, Oriented, AO x 3, No Motor Deficits and Nonfocal/grossly intact
Psych: Calm and Anxious
Laboratory Results
-
11/16/24 22:38
11/16/24 22:38
Laboratory Results
Total Bilirubin 0.4 mg/dl (0.2-1.3) 11/16/24 22:38
AST 23 U/L (14-36) 11/16/24 22:38
ALT < 10 U/L (0-35) 11/16/24 22:38
Alkaline Phosphatase 85 U/L (38-126) 11/16/24 22:38
Lipase 24 U/L (23-300) 11/16/24 22:38
Data Reviewed
-
Lab Data: Labs Reviewed by me
Impression/Plan
-
A/P:
#Recurrent diarrhea, nausea, abd pain
repeat stool studies
check TTG, IGa, anti-gliadin and Endomysial Ab
GI consult
Zofran
#Possible UTI
miniml leukocytosis
ceftriaxone pending Ucx
#Hyponatremia
IVF
#Hypokalemia
replete
#Stable 4 mm nodule in the medial left lung base
repeat CT chest in 6-12mo with PCP
#Parkinson disease
#Anxiety/depression
#Hx of CVA with mild L residual weakness
#Hypothyroidism
#Hx of Stage 4 melanoma s/p wide excision and axillary dissection in 2021 and immunotherapy (last completed in Mar as per patient)
#L nephrectomy
#RLS
#Insomnia
cont home meds
DVT ppx Lovenox
Full code
I have spent at least 78min checking chart, test results and providing direct patient care
--- NOTE | 2024-11-17 10:05 | CM ---
Patient seen at bedside in ED. Patient reports she lives alone in a 2 story home. Patient stated that she has one daughter and 'she comes and goes'. Patient has a stuffed dog with her and stated that she is newly diagnosed with Parkinson's. Patient
stated that she is frustrated with her health and does not have any assistive devices at home. Patient PCP is Dr. Gallardo and she used the [facility] in [place]. Patient is eager to start working with out patient therapy program for Parkinson's but stated
that home health VN/PT/OT was not helpful to her. Patient plan is home with outpatient therapy. CM will continue to follow for discharge planning needs.
Plan; home with no needs, outpatient therapy pending medical treatment needs.
[2024-11-17 12:03] VITALS: BP 130/70
--- NOTE | 2024-11-17 12:54 | CON.GI ---
Consultation
-
Date/Time Consultation Requested: 11/17/2024
Date/Time Consultation Performed: 11/17/2024
Requesting Provider: Hospitalist
Performing Provider: Brendon BROOKS
Reason for Consultation: Nausea/vomiting/diarrhea
Medical History
Chief Complaint / HPI
Chief Complaint: Nausea/vomiting/diarrhea
History of Present Illness:
74-year-old female with below mentioned past medical history who was recently admitted to with nausea/vomiting/diarrhea and discharged on 11/12/2024 admitted again with similar symptoms. During last admission stool studies were negative for
infection. CT abdomen/pelvis with IV and oral contrast during that time showing nonspecific pancolitis. She also underwent MRI abdomen at that time to evaluate gallbladder-no MR evidence of cholelithiasis or choledocholithiasis. No antibiotics
given during last admission
As per patient since discharge she has been having loose stool every time she eats. She also feels nauseated all the time. Denies any fever or chills. Some abdominal discomfort.
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
Past Medical History
Past Medical History: Other (Parkinson, RLS, HX of melanoma, HTN, anxiety, immune-mediated colitis)
Past Surgical History: Other (Hx of L nephrectomy)
Social History
Tobacco: Non-Smoker
Alcohol: None
Allergies / Home Medications
Allergy/AdvReac Type Severity Reaction Status Date / Time
No Known Allergies Allergy Verified 11/16/24 21:16
�Medication �Instructions �Recorded
bupropion HCl 150 mg 24 hr tablet, 300 mg PO DAILY Mental 03/31/24
extended release (Wellbutrin XL) Health/Anxiety
levothyroxine 50 mcg tablet 50 mcg PO DAILY Thyroid 09/08/24
(Synthroid)
melatonin 10 mg tablet 10 mg PO HS Sleep 09/08/24
sertraline 100 mg tablet 100 mg PO DAILY Depression 09/08/24
alprazolam 0.5 mg tablet (Xanax) 0.5 mg PO BIDPRN PRN anxiety/ 11/11/24
elevated stress level
carbidopa 25 mg-levodopa 100 mg 1 tab PO QID 11/11/24
tablet
sucralfate 1 gram tablet 1 g PO ACHS #120 tabs 11/12/24
ropinirole 0.25 mg tablet 0.5 mg PO BID@1500,2100 11/17/24
Review of Systems
Vital Signs
Temp Pulse Resp BP Pulse Ox
97.9 F 95 18 125/70 96
11/16/24 21:13 11/17/24 05:00 11/17/24 05:00 11/17/24 05:00 11/17/24 05:00
Physical Exam
Exam
General: Comfortable
Respiratory: Clear
Cardiac: S1/S2
GI: Soft, Non Tender and Non Distended
Neuro: AO x 3
Results
WBC 13.9 10^3/uL (4.8-10.8) H 11/16/24 22:38
Hgb 13.2 g/dL (12.0-16.0) D 11/16/24 22:38
Hct 39.8 % (37.0-47.0) 11/16/24 22:38
MCV 78.7 fL (81.0-99.0) L 11/16/24 22:38
Plt Count 397 10^3/uL (130-400) D 11/16/24 22:38
Absolute Neuts (auto) 10.0 10^3/uL (1.4-6.5) H 11/16/24 22:38
Sodium 130 mmol/L (135-145) L 11/16/24 22:38
Potassium 3.7 mmol/L (3.5-5.1) 11/16/24 22:38
Chloride 101 mmol/L (98-107) 11/16/24 22:38
Carbon Dioxide 21 mmol/L (22-30) L 11/16/24 22:38
BUN 10 mg/dl (7-17) 11/16/24 22:38
Creatinine 1.1 mg/dL (0.6-1.0) H 11/16/24 22:38
Calcium 10.2 mg/dl (8.4-10.2) 11/16/24 22:38
Total Bilirubin 0.4 mg/dl (0.2-1.3) 11/16/24 22:38
AST 23 U/L (14-36) 11/16/24 22:38
ALT < 10 U/L (0-35) 11/16/24 22:38
Alkaline Phosphatase 85 U/L (38-126) 11/16/24 22:38
Lipase 24 U/L (23-300) 11/16/24 22:38
Diagnostic Image Results:
Prior GI Procedures:
EGD: None
Colonoscopy: 2019-Dr. Ortiz. Diverticulosis. Otherwise normal
Assessment / Plan
-
74-year-old female with history of Parkinson disease, immune-mediated colitis in 2022, anxiety, melanoma, hypertension admitted again with nausea/vomiting/diarrhea. Patient was admitted with similar symptoms 11/07/2024 and was discharged on
11/12/2024. CT abdomen/pelvis performed during that admission was showing nonspecific pancolitis. Stool studies negative for infection at that time. Patient was discharged on Pepto-Bismol/ Carafate/Pepcid/Zofran. Last colonoscopy 2018 with
Ortiz�diverticulosis . During this admission labs showing WBC 13.9. Liver test/lipase normal. Serum creatinine 1.1
-- Nausea/vomiting/diarrhea/prior CT abd 11/07 showing pancolitis-etiology ;infectious versus inflammatory. Prior stool studies negative for infections
-- History of immune mediated colitis 2022
plan
Full liquid diet
IV hydration
Antiemetics as needed
Ceftriaxone started by medical team for possible UTI.
Will check stool calprotectin
Celiac serology pending
Trial of Questran/Imodium
If symptoms persist will consider EGD/flex sig during this admission
Total Time Spent with Patient (in minutes): 55
-
-
Thank you for consultation and allowing me to participate in the patient's care. Please call the concrete gun operator GI physician during the after hours with any questions or concerns.
[2024-11-17 13:24] VITALS: BP 132/71
[2024-11-17 14:38] VITALS: BP 125/75
[2024-11-17] MEDS: IMODIUM PO ×2 (15:03→21:58)
[2024-11-17] MEDS: SINEMET 25-100 1 TABLET PO ×3 (15:07→21:58)
[2024-11-17] MEDS: NSS 1000 IV (15:07)
[2024-11-17] MEDS: REQUIP 0.5 MG PO ×2 (17:07→20:23)
[2024-11-17 20:49] VITALS: BP 147/75
[2024-11-17] MEDS: MELATONIN 3 MG PO (21:58)
[2024-11-17 23:31] VITALS: BP 127/67
[2024-11-18] MEDS: NSS 1000 IV ×2 (02:52→14:59)
[2024-11-18 05:09] LABS: Hematocrit 34.5 % (37.0-47.0); Hemoglobin 11.3 g/dL (12.0-16.0); Mean Corp Hgb Conc. 32.8 g/dL (33.0-37.0); Mean Corpuscular Volume 80.0 fL (81.0-99.0); Nucleated Red Blood Cells % 0 %; Platelet Count 325 10^3/uL (130-400); Red Cell Dist. Width 13.8 % (11.5-14.5)
[2024-11-18 05:33] LABS: ALT (SGPT) < 10 U/L (0-35); AST (SGOT) 21 U/L (14-36); Albumin 2.8 g/dl (3.5-5.0); Alkaline Phosphatase 65 U/L (38-126); Blood Urea Nitrogen 11 mg/dl (7-17); Calcium 9.1 mg/dl (8.4-10.2); Carbon Dioxide 18 mmol/L (22-30); Chloride 108 mmol/L (98-107); Glucose 85 mg/dl (70-99); Magnesium 1.5 mg/dl (1.6-2.3); Potassium 3.9 mmol/L (3.5-5.1); Sodium 131 mmol/L (135-145); Total Protein 5.2 g/dl (6.3-8.2); eGFR > 60.00
[2024-11-18] MEDS: SYNTHROID 50 MCG PO (05:41)
[2024-11-18] MEDS: IMODIUM 2 MG PO (05:41)
[2024-11-18 06:03] LABS: TSH 2.69 uIU/ml (0.47-4.68)
[2024-11-18 06:07] LABS: Ferritin 44.3 ng/ml (11.1-264.0)
[2024-11-18 07:15] VITALS: BP 154/79
[2024-11-18] MEDS: WELLBUTRIN XL (24 hour extended release) 300 MG PO (08:34)
[2024-11-18] MEDS: VISBIOME 1 CAP PO (08:34)
[2024-11-18] MEDS: ZOLOFT 100 MG PO (08:34)
[2024-11-18] MEDS: SINEMET 25-100 1 TABLET PO ×3 (08:34→22:49)
[2024-11-18] MEDS: MAGNESIUM SULFATE 50 IV (08:34)
[2024-11-18] MEDS: ASPIR LOW (ENTERIC COATED) PO (08:38)
--- NOTE | 2024-11-18 09:00 | W.PN.HOSP.TC ---
Today's Communication/Plan
-
mgmt as per GI
Assessment / Plan
Assessment / Plan
74yo F with PMHX of Parkinson, RLS, HX of melanoma, Hx of L nephrectomy, HTN, anxiety came with 1 day of recurrent diarrhea, nausea and vomiting. Discharged from few days ago with same complains and had extensive w/u at that time with negative
stool Cx. MRI abd also was done and was neg. CT was concerning for colitis. PAtient was d/c on bismuth, pepcid, PPI, carafate, however it did not help. No other complains noted. No recent change in her ususal home medsication before onset of the
symptoms 2 weeks ago.
Patient was started on Sinemet in September, the rest of the meds remained the same.
A/P:
#Recurrent diarrhea, nausea, abd pain
repeat stool studies: multiple WBC in stool, C.diff remained neg, Norovirus neg, Cx pending
check TTG, IGa, anti-gliadin and Endomysial Ab
check calprotectin
GI consult: If symptoms persist will consider EGD/flex sig during this admission
Zofran, Imodium
Offered patient trial to stop Ropinirol - patient declined
#Possible UTI
miniml leukocytosis
ceftriaxone pending Ucx
#Hyponatremia
Improving on IVF
#Hypokalemia
#Hypomagnesemia
replete
#Stable 4 mm nodule in the medial left lung base
repeat CT chest in 6-12mo with PCP
#Parkinson disease
#Anxiety/depression
#Hx of CVA with mild L residual weakness
#Hypothyroidism
#Hx of Stage 4 melanoma s/p wide excision and axillary dissection in 2021 and immunotherapy (last completed in Mar as per patient)
#L nephrectomy
#RLS
#Insomnia
cont home meds
DVT ppx Lovenox
Full code
I have spent at least 51min checking chart, test results and providing direct patient care
Anticipated Discharge: > 48 hours
Subjective/Interval History
-
Date of Service: November 18, 2024
Objective Data
-
Labs:
Laboratory Results
11/18/24
04:59
WBC 9.9
Hgb 11.3 L
Hct 34.5 L
Plt Count 325
Sodium 131 L
Potassium 3.9
Chloride 108 H
Carbon Dioxide 18 L
BUN 11
Creatinine 0.9
Glucose 85
Calcium 9.1
Total Bilirubin 0.5
AST 21
ALT < 10
Alkaline Phosphatase 65
Vital Signs:
Vital Signs
Temp Pulse Resp BP Pulse Ox
98.3 F 96 18 154/79 96
11/18/24 07:15 11/18/24 07:15 11/18/24 07:15 11/18/24 07:15 11/18/24 07:15
I&O
11/17/24 11/18/24 11/19/24
06:59 06:59 06:59
Intake Total 800 / 800
Balance 800 / 800
Review of Systems
-
History Source: Patient
Abdomen/GI: Reports Abdominal Pain, Nausea and Diarrhea
Physical Exam
-
General: No Apparent Distress
Neuro: Awake, Alert, Oriented and AO x 3
Psych: Anxious
[2024-11-18] MEDS: ZOFRAN 4 MG IV (09:23)
--- NOTE | 2024-11-18 09:28 | W.PN.GI.CBS2 ---
Today's Communication / Plan
-
EGD/ flex sig tomorrow. NPO after midnight
Assessment / Plan
-
74-year-old female with history of Parkinson disease, immune-mediated colitis in 2022, anxiety, melanoma, hypertension admitted again with nausea/vomiting/diarrhea. Patient was admitted with similar symptoms 11/07/2024 and was discharged on
11/12/2024. CT abdomen/pelvis performed during that admission was showing nonspecific pancolitis. Stool studies negative for infection at that time. Patient was discharged on Pepto-Bismol/ Carafate/Pepcid/Zofran. Last colonoscopy 2018 with
Ortiz�diverticulosis . During this admission labs showing WBC 13.9. Liver test/lipase normal. Serum creatinine 1.1
-- Nausea/vomiting/diarrhea/prior CT abd 11/07 showing pancolitis-etiology ;infectious versus inflammatory. Prior stool studies negative for infections
-- History of immune mediated colitis 2022
plan
Trial of Questran/Imodium recommended - patient does not want to take questran . she claims she tried in the past and will not tolerate . took imodium this am . c/o nausea this am .
Full liquid diet
IV hydration
Antiemetics as needed. patient was requesting reglan over zofran. Discussed with pharmacy- major interaction with reglan and her parkinson's meds . will advice to continue zofran as needed
Ceftriaxone started by medical team for possible UTI.
Will check stool calprotectin
Celiac serology pending
since patient remains symptomatic will schedule for EGD/ flex sig tomorrow. NPO after midnight
Total Time Spent with Patient (in minutes): 35
Subjective
Subjective
Date of Service: November 18, 2024
she claims she continues to have loose stool > 10 times. she does not want to take cholestyramine . took imodium this am . c/o nausea
Objective
Data Reviewed
Laboratory Data:
Laboratory Results
11/18/24 04:59
11/18/24 04:59
Laboratory Results
Magnesium 1.5 mg/dl (1.6-2.3) L 11/18/24 04:59
Total Bilirubin 0.5 mg/dl (0.2-1.3) 11/18/24 04:59
AST 21 U/L (14-36) 11/18/24 04:59
ALT < 10 U/L (0-35) 11/18/24 04:59
Alkaline Phosphatase 65 U/L (38-126) 11/18/24 04:59
Lipase 24 U/L (23-300) 11/16/24 22:38
Vital Signs and I&O:
Vital Signs
Temp Pulse Resp BP Pulse Ox
98.3 F 96 18 154/79 96
11/18/24 07:15 11/18/24 07:15 11/18/24 07:15 11/18/24 07:15 11/18/24 07:15
I&O
11/17/24 11/18/24 11/19/24
06:59 06:59 06:59
Intake Total 800 / 800
Balance 800 / 800
Physical Exam
Physical Exam
GI: Soft, Non Distended and Non Tender
[2024-11-18] MEDS: ZYPREXA 2.5 MG PO (11:39)
[2024-11-18] MEDS: SINEMET 25-100 PO (11:40)
[2024-11-18] MEDS: REQUIP 0.5 MG PO ×2 (14:59→20:30)
[2024-11-18] MEDS: IMODIUM PO ×2 (15:01→22:49)
[2024-11-18 15:27] VITALS: BP 125/79
[2024-11-18] MEDS: XANAX 0.5 MG PO (20:27)
[2024-11-18] MEDS: MELATONIN 3 MG PO (22:49)
[2024-11-18] MEDS: TYLENOL 650 MG PO (22:56)
[2024-11-18 23:00] VITALS: BP 146/79
[2024-11-19] MEDS: MORPHINE SULFATE 2 MG IV (03:13)
[2024-11-19] MEDS: NSS 1000 IV ×2 (03:14→22:08)
[2024-11-19 07:15] VITALS: BP 114/66
[2024-11-19] MEDS: WELLBUTRIN XL (24 hour extended release) 300 MG PO (08:08)
[2024-11-19] MEDS: ZOLOFT 100 MG PO (08:08)
[2024-11-19] MEDS: VISBIOME 1 CAP PO (08:08)
[2024-11-19] MEDS: SINEMET 25-100 1 TABLET PO ×4 (08:08→21:55)
[2024-11-19] MEDS: SYNTHROID 50 MCG PO (08:08)
[2024-11-19] MEDS: IMODIUM PO (08:14)
[2024-11-19] MEDS: REQUIP 0.5 MG PO ×3 (09:38→22:08)
[2024-11-19] MEDS: XANAX 0.5 MG PO ×2 (09:46→23:27)
--- NOTE | 2024-11-19 11:16 | W.PN.HOSP.TC ---
Today's Communication/Plan
-
immunologic check
check porphobilinogen
for GI procedures
Tigan
Assessment / Plan
Assessment / Plan
74yo F with PMHX of Parkinson, RLS, HX of melanoma, Hx of L nephrectomy, HTN, anxiety came with 1 day of recurrent diarrhea, nausea and vomiting. Discharged from few days ago with same complains and had extensive w/u at that time with negative
stool Cx. MRI abd also was done and was neg. CT was concerning for colitis. Patient was d/c on bismuth, pepcid, PPI, carafate, however it did not help. No other complains noted. No recent change in her usual home medication before onset of the
symptoms 2 weeks ago.
Patient was started on Sinemet in September, the rest of the meds remained the same.
A/P:
#Recurrent diarrhea, nausea, abd pain
repeat stool studies: multiple WBC in stool, C.diff remained neg, Norovirus neg, Cx pending
check TTG, IGa, anti-gliadin and Endomysial Ab
check calprotectin, stool fat, pancrease
ESR WNL
check porphobilinogen urina
Check JESSICA
GI consult: EGD/flex sig during this admission
Zofran not helpful - try Tigan, Imodium
Offered patient trial to stop Ropinirole - patient declined
#Possible UTI
minimal leukocytosis
ceftriaxone x 5 days
Ucx with E.coli and Strep
#Hyponatremia
Improving on IVF
#Hypokalemia
#Hypomagnesemia
replete
#Stable 4 mm nodule in the medial left lung base
repeat CT chest in 6-12mo with PCP
#Parkinson disease
#Anxiety/depression
#Hx of CVA with mild L residual weakness
#Hypothyroidism
#Hx of Stage 4 melanoma s/p wide excision and axillary dissection in 2021 and immunotherapy (last completed in Mar as per patient)
#L nephrectomy
#RLS
#Insomnia
cont home meds
DVT ppx Lovenox
Full code
I have spent at least 51min checking chart, test results and providing direct patient care
Anticipated Discharge: > 48 hours
Subjective/Interval History
-
Date of Service: November 19, 2024
Objective Data
-
Vital Signs:
Vital Signs
Temp Pulse Resp BP Pulse Ox
100.2 F 102 16 114/66 97
11/19/24 07:15 11/19/24 07:15 11/19/24 07:15 11/19/24 07:15 11/19/24 07:15
I&O
11/18/24 11/19/24 11/20/24
06:59 06:59 06:59
Intake Total 800 / 800 780 / 780
Balance 800 / 800 780 / 780
Review of Systems
-
History Source: Patient
All other systems: Reviewed and negative
Abdomen/GI: Reports Abdominal Pain, Nausea and Diarrhea
Physical Exam
-
General: Appears in Distress
HEENT: Normocephalic
Neuro: Awake, Oriented and AO x 3
Psych: Anxious
[2024-11-19 11:23] LABS: C-Reactive Protein 140.30 mg/L (0.0-10.00)
[2024-11-19 11:59] VITALS: BP 125/68
[2024-11-19 12:00] VITALS: BP 116/75
[2024-11-19 12:15] VITALS: BP 118/61
[2024-11-19 13:10] LABS: tTG IgA Antibody 6.4 EU/ml (0-19); tTG IgG Antibody 4.6 EU/ml (0-19)
[2024-11-19 15:05] VITALS: BP 131/68
[2024-11-19] MEDS: COMPAZINE 5 MG PO ×2 (16:12→21:55)
[2024-11-19] MEDS: IMODIUM 2 MG PO ×2 (16:12→21:55)
[2024-11-19] MEDS: MELATONIN 3 MG PO (21:55)
[2024-11-19 23:05] VITALS: BP 103/56
[2024-11-20] MEDS: COMPAZINE 5 MG PO ×4 (04:43→23:40)
[2024-11-20] MEDS: NSS 1000 IV ×2 (04:43→21:59)
[2024-11-20] MEDS: SYNTHROID 50 MCG PO (05:26)
[2024-11-20 07:00] VITALS: BP 120/66
[2024-11-20] MEDS: WELLBUTRIN XL (24 hour extended release) 300 MG PO (08:27)
[2024-11-20] MEDS: VISBIOME 1 CAP PO (08:28)
[2024-11-20] MEDS: IMODIUM 2 MG PO ×3 (08:28→21:59)
[2024-11-20] MEDS: SINEMET 25-100 1 TABLET PO ×3 (08:28→21:59)
[2024-11-20] MEDS: ZOLOFT 100 MG PO (08:28)
[2024-11-20] MEDS: ASPIR LOW (ENTERIC COATED) 81 MG PO (08:28)
[2024-11-20 08:50] LABS: Hematocrit 33.1 % (37.0-47.0); Hemoglobin 11.0 g/dL (12.0-16.0); Mean Corp Hgb Conc. 33.2 g/dL (33.0-37.0); Mean Corpuscular Volume 81.1 fL (81.0-99.0); Nucleated Red Blood Cells % 0 %; Platelet Count 320 10^3/uL (130-400); Red Cell Dist. Width 14.0 % (11.5-14.5)
[2024-11-20 09:06] LABS: ALT (SGPT) < 10 U/L (0-35); AST (SGOT) 16 U/L (14-36); Albumin 2.6 g/dl (3.5-5.0); Alkaline Phosphatase 72 U/L (38-126); Blood Urea Nitrogen 13 mg/dl (7-17); Calcium 9.0 mg/dl (8.4-10.2); Carbon Dioxide 22 mmol/L (22-30); Chloride 110 mmol/L (98-107); Glucose 102 mg/dl (70-99); Potassium 3.4 mmol/L (3.5-5.1); Sodium 135 mmol/L (135-145); Total Protein 4.8 g/dl (6.3-8.2); eGFR > 60.00
[2024-11-20] MEDS: KCL 270 MEQ IV (09:38)
[2024-11-20 09:56] LABS: Magnesium 1.6 mg/dl (1.6-2.3)
--- NOTE | 2024-11-20 10:02 | W.PN.HOSP.TC ---
Today's Communication/Plan
-
replete magnesium and potassium
pending further mgmt by GI
Assessment / Plan
Assessment / Plan
74yo F with PMHX of Parkinson, RLS, HX of melanoma, Hx of L nephrectomy, HTN, anxiety came with 1 day of recurrent diarrhea, nausea and vomiting. Discharged from few days ago with same complains and had extensive w/u at that time with negative
stool Cx. MRI abd also was done and was neg. CT was concerning for colitis. Patient was d/c on bismuth, pepcid, PPI, carafate, however it did not help. No other complains noted. No recent change in her usual home medication before onset of the
symptoms 2 weeks ago.
Patient was started on Sinemet in September, the rest of the meds remained the same.
A/P:
#Recurrent diarrhea, nausea, abd pain
repeat stool studies: multiple WBC in stool, C.diff remained neg, Norovirus neg, Cx pending
TTG, IGa, anti-gliadin and Endomysial Ab normal
check calprotectin, stool fat, pancrease
ESR WNL, CRP significantly elevated
check porphobilinogen urina
Check JESSICA, complement
GI consult: EGD/flex sig done on 11/20/24. Gastritis. iffuse severe inflammation was found in the rectum, in the recto-sigmoid colon, in the sigmoid colon and in the descending colon. Biopsy pending, CMV, HSV also sent
Zofran not helpful - Compazine better, Imodium
Offered patient trial to stop Ropinirole - patient declined
#Possible UTI
minimal leukocytosis
ceftriaxone x 3 days completed
Ucx with E.coli and Strep
#Hyponatremia
Improving on IVF
#Hypokalemia
#Hypomagnesemia
replete
#Stable 4 mm nodule in the medial left lung base
repeat CT chest in 6-12mo with PCP
#Parkinson disease
#Anxiety/depression
#Hx of CVA with mild L residual weakness
#Hypothyroidism
#Hx of Stage 4 melanoma s/p wide excision and axillary dissection in 2021 and immunotherapy (last completed in Mar as per patient)
#L nephrectomy
#RLS
#Insomnia
cont home meds
DVT ppx Lovenox
Full code
I have spent at least 36min checking chart, test results and providing direct patient care
Anticipated Discharge: > 48 hours
Subjective/Interval History
-
Date of Service: November 20, 2024
Objective Data
-
Labs:
Laboratory Results
11/20/24
08:40
WBC 7.7
Hgb 11.0 L
Hct 33.1 L
Plt Count 320
Sodium 135
Potassium 3.4 L
Chloride 110 H
Carbon Dioxide 22
BUN 13
Creatinine 0.7
Glucose 102 H
Calcium 9.0
Total Bilirubin 0.3
AST 16
ALT < 10
Alkaline Phosphatase 72
Vital Signs:
Vital Signs
Temp Pulse Resp BP Pulse Ox
97.4 F 88 16 120/66 97
11/20/24 07:00 11/20/24 07:00 11/20/24 07:00 11/20/24 07:00 11/20/24 07:00
I&O
11/19/24 11/20/24 11/21/24
06:59 06:59 06:59
Intake Total 780 / 780 100 / 100
Balance 780 / 780 100 / 100
Review of Systems
-
History Source: Patient
All other systems: Reviewed and negative
Abdomen/GI: Reports Abdominal Pain, Nausea and Diarrhea
Physical Exam
-
General: Well Developed and Appears in Distress
Neuro: Awake, Alert, Oriented and AO x 3
Psych: Calm
[2024-11-20] MEDS: MAGNESIUM SULFATE 50 IV (11:11)
[2024-11-20 15:39] VITALS: BP 135/78
[2024-11-20] MEDS: SINEMET 25-100 PO (15:42)
[2024-11-20] MEDS: REQUIP 0.5 MG PO ×2 (16:43→20:16)
--- NOTE | 2024-11-20 18:17 | W.PN.GI.CBS2 ---
Today's Communication / Plan
-
plan
- Biopsies from upper endoscopy showed normal esophageal lining, no H. pylori in the stomach and [place] red stain negative for amyloid, duodenal biopsies without any celiac disease.
On full liquid diet, advance if tolerated per patient continues to feel nauseous.
Will do upper GI study tomorrow -J-shaped stomach noted on upper endoscopy and flattened gastric folds, also to rule out possible hiatal hernia
If nausea continues, could try Remeron which would also help her with some weight gain.
Continue PPI
Biopsies from colonoscopy pending-ulcerated mucosa noted in the colon with stool for infection negative
Okay to take Imodium if needed for now.
Will follow
Assessment / Plan
-
74-year-old female with history of Parkinson disease, immune-mediated colitis in 2022, anxiety, melanoma, hypertension admitted again with nausea/vomiting/diarrhea. Patient was admitted with similar symptoms 11/07/2024 and was discharged on
11/12/2024. CT abdomen/pelvis performed during that admission was showing nonspecific pancolitis. Stool studies negative for infection at that time. Patient was discharged on Pepto-Bismol/ Carafate/Pepcid/Zofran. Last colonoscopy 2018 with
Heidyiverjatinderulosis . During this admission labs showing WBC 13.9. Liver test/lipase normal. Serum creatinine 1.1
-- Nausea/vomiting/diarrhea/prior CT abd 11/07 showing pancolitis-etiology ;infectious versus inflammatory. Prior stool studies negative for infections
-- History of immune mediated colitis 2022
EGD 11/19/24-- No gross lesions in the entire esophagus. Biopsied. Z-line regular, 37 cm from the incisors.- 2 cm hiatal hernia.Erythematous mucosa in the antrum. Biopsied.- Gastric mucosal atrophy. J shaped stomach. Biopsies taken in the
antrum . Gastric folds are flat without rugae.- Normal examined duodenum until the 2nd portion. Biopsied
COLONOSCOPY 11/19/24- - Diffuse severe inflammation was found in the rectum, in the recto-sigmoid colon, in the sigmoid colon and in the descending colon. Biopsied.Diverticulosis in the sigmoid colon and in the descending colon.
plan
- Biopsies from upper endoscopy showed normal esophageal lining, no H. pylori in the stomach and [place] red stain negative for amyloid, duodenal biopsies without any celiac disease.
On full liquid diet, advance if tolerated per patient continues to feel nauseous.
Will do upper GI study tomorrow -J-shaped stomach noted on upper endoscopy and flattened gastric folds, also to rule out possible hiatal hernia
If nausea continues, could try Remeron which would also help her with some weight gain.
Continue PPI
Biopsies from colonoscopy pending-ulcerated mucosa noted in the colon with stool for infection negative
Okay to take Imodium if needed for now.
Will follow
Subjective
Subjective
Date of Service: November 20, 2024
Patient continues to complain of nausea, no vomiting. Brown liquid bowel movements which are ongoing.
On full liquid diet
Objective
Data Reviewed
Laboratory Data:
Laboratory Results
11/20/24 08:40
11/20/24 08:40
Laboratory Results
Magnesium 1.6 mg/dl (1.6-2.3) 11/20/24 08:40
Total Bilirubin 0.3 mg/dl (0.2-1.3) 11/20/24 08:40
AST 16 U/L (14-36) 11/20/24 08:40
ALT < 10 U/L (0-35) 11/20/24 08:40
Alkaline Phosphatase 72 U/L (38-126) 11/20/24 08:40
Lipase 24 U/L (23-300) 11/16/24 22:38
Vital Signs and I&O:
Vital Signs
Temp Pulse Resp BP Pulse Ox
97 F 85 16 135/78 97
11/20/24 15:39 11/20/24 15:39 11/20/24 15:39 11/20/24 15:39 11/20/24 15:39
I&O
11/19/24 11/20/24 11/21/24
06:59 06:59 06:59
Intake Total 780 / 780 100 / 100 600 / 600
Balance 780 / 780 100 / 100 600 / 600
Physical Exam
Physical Exam
GI: Soft, Non Distended and Non Tender
[2024-11-20] MEDS: XANAX 0.5 MG PO (20:12)
[2024-11-20] MEDS: MELATONIN 3 MG PO (21:59)
[2024-11-20 23:02] LABS: Complement Act., Total (CH50) 49.1 U/mL (38.7-89.9)
[2024-11-20 23:15] VITALS: BP 123/68
[2024-11-20] MEDS: TYLENOL PO (23:39)
[2024-11-21 01:59] LABS: ANA, IgG Reflex to HEp-2 None Detected (None Detected)
[2024-11-21 04:52] LABS: Hematocrit 30.0 % (37.0-47.0); Hemoglobin 9.9 g/dL (12.0-16.0); Mean Corp Hgb Conc. 33.0 g/dL (33.0-37.0); Mean Corpuscular Volume 78.7 fL (81.0-99.0); Platelet Count 294 10^3/uL (130-400); Red Cell Dist. Width 13.7 % (11.5-14.5)
[2024-11-21 05:06] LABS: ALT (SGPT) < 10 U/L (0-35); AST (SGOT) 16 U/L (14-36); Albumin 2.1 g/dl (3.5-5.0); Alkaline Phosphatase 63 U/L (38-126); Blood Urea Nitrogen 9 mg/dl (7-17); Calcium 8.1 mg/dl (8.4-10.2); Carbon Dioxide 22 mmol/L (22-30); Chloride 111 mmol/L (98-107); Glucose 89 mg/dl (70-99); Potassium 3.3 mmol/L (3.5-5.1); Sodium 135 mmol/L (135-145); Total Protein 4.2 g/dl (6.3-8.2); eGFR > 60.00
[2024-11-21] MEDS: SYNTHROID PO (05:29)
[2024-11-21] MEDS: COMPAZINE 5 MG IV ×2 (06:28→15:11)
[2024-11-21 07:00] VITALS: BP 141/72
--- NOTE | 2024-11-21 09:05 | W.PN.GI.CBS2 ---
Addendum entered and electronically signed by Smitha Dickinson MD 11/21/24 19:01:
I saw and examined the patient.
The SENIOR DIRECTOR MARKETING or PA's note was reviewed and I agree with the note.
Comment: Patient continues to complain of nausea and also multiple episodes of nonbloody diarrhea.
Biopsies from the upper endoscopy reviewed with patient, unremarkable for H. pylori or celiac disease, colon biopsies still pending.
Elevated CRP and ESR, fecal calprotectin more than 3000, fecal fat negative.
Cannot rule out immune mediated colitis given previous history. Patient previously treated by her oncologist at [place], Doctor Miguel A Morley with Remicade.
Agree with starting Solu-Medrol 40 mg IV every 8 hours.
Hepatitis panel and TB testing ordered.
Chronic nausea and weight loss, I sent a message to from psychiatry to see if we can add Remeron. Currently patient on Wellbutrin and Zoloft. She suggested holding off on Remeron at this time but if patient can be switched to Remeron,
that would help with nausea and weight gain.
Continue PPI.
Advance diet as tolerated.
Original Note:
Today's Communication / Plan
-
Etiology of symptoms related to colitis-- concern for prior immune mediated colitis in past pt also stated on Sinemet in September with terminal operations manager ropinirole (pt declines to stop)
-pt declines to proceed with UGI as feels cannot tolerate contrast
-Biopsies from upper endoscopy showed normal esophageal lining, no H. pylori in the stomach and [place] red stain negative for amyloid, duodenal biopsies without any celiac disease.
-still with nausea - will add Protonix BID, cont Compazine t/c Remeron
-ok for full liquid diet - pt asking for some diet
remains on Imodium TID, Questran daily, probiotics
-elevated CRP 140.3, ESR 10, fecal rossy pending
Biopsies from colonoscopy pending- will review with Dr. Dickinson for starting IV steroids as no improvement
will add hepatitis/TB testing if biologic therapy needed pending biopsy
reviewed with Dr. Varma
Assessment / Plan
-
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 Patient was admitted with similar symptoms
11/07/2024 and was discharged on 11/12/2024. CT abdomen/pelvis performed during that admission was showing nonspecific pancolitis. Stool studies negative for infection at that time. Patient was discharged on Pepto-Bismol/ Carafate/Pepcid/Zofran.
Last colonoscopy [address] Cortes . During this admission labs showing WBC 13.9. Liver test/lipase normal. Serum creatinine 1.1
-- Nausea/vomiting
-diarrhea prior CT abd 11/07 showing pancolitis-etiology ;infectious versus inflammatory. Prior stool studies negative for infections
-flex sig with diffuse severe inflammation from rectum to rectosigmoid in sigmoid and descending colon
-- History of immune mediated colitis 2022
-J shaped stomach with fattened gastric folds possible HH
-wt loss 10kg since September
EGD 11/19/24-- No gross lesions in the entire esophagus. Biopsied. Z-line regular, 37 cm from the incisors.- 2 cm hiatal hernia.Erythematous mucosa in the antrum. Biopsied.- Gastric mucosal atrophy. J shaped stomach. Biopsies taken in the
antrum . Gastric folds are flat without rugae.- Normal examined duodenum until the 2nd portion. Biopsied
COLONOSCOPY 11/19/24- - Diffuse severe inflammation was found in the rectum, in the recto-sigmoid colon, in the sigmoid colon and in the descending colon. Biopsied.Diverticulosis in the sigmoid colon and in the descending colon.
plan
Etiology of symptoms related to colitis-- concern for prior immune mediated colitis in past pt also stated on Sinemet in September with terminal operations manager ropinirole (pt declines to stop)
-pt declines to proceed with UGI as feels cannot tolerate contrast
-Biopsies from upper endoscopy showed normal esophageal lining, no H. pylori in the stomach and [place] red stain negative for amyloid, duodenal biopsies without any celiac disease.
-still with nausea - will add Protonix BID, cont Compazine t/c Remeron
-ok for full liquid diet - pt asking for some diet
remains on Imodium TID, Questran daily, probiotics
-elevated CRP 140.3, ESR 10, fecal rossy pending
Biopsies from colonoscopy pending- will review with Dr. Dickinson for starting IV steroids as no improvement
will add hepatitis/TB testing if biologic therapy needed pending biopsy
Will follow
Subjective
Subjective
Date of Service: November 21, 2024
Pt denies to proceed with UGI testing -- states I cannot take oral contrast and still issues with nausea and difficulty eating -- currently NPO for testing but asking for full liquid diet, still with diarrhea
Objective
Data Reviewed
Laboratory Data:
Laboratory Results
11/21/24 04:28
11/21/24 04:28
Laboratory Results
Magnesium 1.6 mg/dl (1.6-2.3) 11/20/24 08:40
Total Bilirubin 0.3 mg/dl (0.2-1.3) 11/21/24 04:28
AST 16 U/L (14-36) 11/21/24 04:28
ALT < 10 U/L (0-35) 11/21/24 04:28
Alkaline Phosphatase 63 U/L (38-126) 11/21/24 04:28
Lipase 24 U/L (23-300) 11/16/24 22:38
Vital Signs and I&O:
Vital Signs
Temp Pulse Resp BP Pulse Ox
97.6 F 98 16 141/72 96
11/21/24 07:00 11/21/24 07:00 11/21/24 07:00 11/21/24 07:00 11/21/24 07:00
I&O
11/20/24 11/21/24 11/22/24
06:59 06:59 06:59
Intake Total 100 / 100 1689 / 1689
Balance 100 / 100 1689 / 1689
Physical Exam
Physical Exam
HEENT: Anicteric and Moist mucous membranes
Cardiology: Normal Sinus Rhythm
Pulmonary: Clear
GI: Soft, Non Distended and Tender (diffuse )
Extremities: No Edema
Neuro: Other (lying if position in bed states I still have nausea and diarrhea )
--- NOTE | 2024-11-21 09:16 | PTCARENOTE ---
GI LIFT SUPERVISOR in to speak with pt about RF UGI for this AM, pt refusing test, full liq diet replaced by MD REJI made aware. No new orders at this time.
[2024-11-21] MEDS: NSS IV (09:20)
[2024-11-21] MEDS: IMODIUM 2 MG PO ×2 (09:44→15:11)
[2024-11-21] MEDS: ZOLOFT 100 MG PO (09:44)
[2024-11-21] MEDS: VISBIOME PO ×2 (09:44→10:04)
[2024-11-21] MEDS: SINEMET 25-100 1 TABLET PO ×3 (09:44→17:00)
[2024-11-21] MEDS: WELLBUTRIN XL (24 hour extended release) 300 MG PO (09:44)
[2024-11-21] MEDS: SYNTHROID 50 MCG PO (09:45)
[2024-11-21] MEDS: NSS (PRESERVATIVE FREE) 10 ML IV ×2 (09:46→19:56)
[2024-11-21] MEDS: PROTONIX IV 40 MG IV ×2 (09:46→19:56)
[2024-11-21] MEDS: XANAX 0.5 MG PO (09:50)
--- NOTE | 2024-11-21 12:14 | W.PN.HOSP.TC ---
Today's Communication/Plan
-
discussed with GI for possible steroids
Psychiatry consult
Discussed with daughter - significant concern that worsening of the anxiety symptoms could cause some level of somatization
Assessment / Plan
Assessment / Plan
74yo F with PMHX of Parkinson, RLS, HX of melanoma, Hx of L nephrectomy, HTN, anxiety came with 1 day of recurrent diarrhea, nausea and vomiting. Discharged from few days ago with same complains and had extensive w/u at that time with negative
stool Cx. MRI abd also was done and was neg. CT was concerning for colitis. Patient was d/c on bismuth, pepcid, PPI, carafate, however it did not help. No other complains noted. No recent change in her usual home medication before onset of the
symptoms 2 weeks ago.
Patient was started on Sinemet in September, the rest of the meds remained the same.
As per daughter - patient started with diarrhea after d/c from rehab at the beginning of Oct, then at the end of oct got progressively worse with nausea.
A/P:
#Recurrent diarrhea, nausea, abd pain
repeat stool studies: multiple WBC in stool, C.diff remained neg, Norovirus neg, Cx neg
TTG, IGa, anti-gliadin and Endomysial Ab normal
check calprotectin, stool elastase
stool fat neg
ESR WNL, CRP significantly elevated
check porphobilinogen urine
Check JESSICA, complement
GI consult: EGD/flex sig done on 11/20/24. Gastritis. diffuse severe inflammation was found in the rectum, in the recto-sigmoid colon, in the sigmoid colon and in the descending colon. Biopsy pending, CMV, HSV also sent
Zofran not helpful - Compazine better, Imodium
Offered patient trial to stop Ropinirole - patient declined
#Possible UTI
minimal leukocytosis
ceftriaxone x 3 days completed
Ucx with E.coli and Strep
#Hyponatremia
Improving on IVF
#Hypokalemia
#Hypomagnesemia
replete
#Stable 4 mm nodule in the medial left lung base
repeat CT chest in 6-12mo with PCP
#Parkinson disease
#Anxiety/depression
#Hx of CVA with mild L residual weakness
#Hypothyroidism
#Hx of Stage 4 melanoma s/p wide excision and axillary dissection in 2021 and immunotherapy (last completed in Mar as per patient)
#L nephrectomy
#RLS
#Insomnia
cont home meds
Psych consult
DVT ppx Lovenox
Full code
I have spent at least 51min checking chart, test results and providing direct patient care
Anticipated Discharge: > 48 hours
Subjective/Interval History
-
Date of Service: November 21, 2024
Objective Data
-
Labs:
Laboratory Results
11/21/24
04:28
WBC 7.9
Hgb 9.9 L
Hct 30.0 L
Plt Count 294
Sodium 135
Potassium 3.3 L
Chloride 111 H
Carbon Dioxide 22
BUN 9
Creatinine 0.5 L
Glucose 89
Calcium 8.1 L
Total Bilirubin 0.3
AST 16
ALT < 10
Alkaline Phosphatase 63
Vital Signs:
Vital Signs
Temp Pulse Resp BP Pulse Ox
97.6 F 98 16 141/72 96
11/21/24 07:00 11/21/24 07:00 11/21/24 07:00 11/21/24 07:00 11/21/24 11:37
I&O
11/20/24 11/21/24 11/22/24
06:59 06:59 06:59
Intake Total 100 / 100 1690 / 1690
Balance 100 / 100 1690 / 1690
[2024-11-21] MEDS: NSS 1000 IV (12:22)
[2024-11-21] MEDS: KCL 270 MEQ IV (12:22)
[2024-11-21 12:34] LABS: Hematocrit 33.7 % (37.0-47.0); Hemoglobin 10.6 g/dL (12.0-16.0)
--- NOTE | 2024-11-21 14:22 | CON.MD ---
Addendum entered and electronically signed by Lorin Pressley MD 11/22/24 14:22:
did not have heart surgery it was during brain surgery that he suffered massive stroke.
Original Note:
Consultation - Medical
-
patient seen chart reviewed spoke with nursing. this consult was done today november 21 2024. patient is a 74 year old woman who came to w complaint of lower abd pain nausea vomiting and diarrhea. she had been here several days before and was dx
with colitis. her sx worsened and she returned to ER. she described being unable to hold much down and a 15 lb weight loss. she has had signmoidoscopy noted severe diffuse inflammation bx not yet back as well as EGD bx taken of erythmatous areas
which did not show malignancy or other significant findings. at this point ugi recommended but patient thus far refusing bc she fears she will not be able to swallow the barium, could aspirate or vomit. she said at this point she can't keep
anything down except lemonade. the patient has a hx of very serious medical illness. see med hx below. she has a long hx of depression and anxiety and was rx by her pcp until the last three weeks. she has seen a psychiatrist on line who it seems
refilled prior scrips for wellbutrin xl 300 mg zoloft 100 mg which she has taken for years. she is not sure they help much. she was prescribed xanax by her pcp o.5 mg up to bid but recent psychiatrist did not refill. she also takes ropinorole for
restless legs. i asked her if she associated nausea and vomiting with any of her psych meds. she did not think so as she has taken them for years. she suffered the of her h in september. she reports he had a major stroke as a result of an error
during heart surgery 'they clamped the wrong artery' and he was at home for one and one half years in her home cared for by her and her d until he a couple of months ago. she was also dx a s hort time after her h's w PD which frightens
her. 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 she struggles with sleep. she was dx w restless legs and took ropinorole for a while. appetite is poor
with recent illness. she has little energy currently. she has never been suicidal or self injurious
past psych hx no hospitalizations no recent therapy she did seek out a psychiatrist on line to prescribe
medical hx seroius medical illness see above re gi. dx with metastatic melanoma and did 27 rounds of immune therapy which she said rendered her hypothyroid. takes synthroid tsh ok. 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 hx PD
diverticulosis ibs there is a notation re secondary mediastinal malignancy htn (patient says bp high only in hospital) hx cva anemia (10.6 hgb) hypokalemia currently 3.3 folate b12 checked recently and are ok
fh mother was depressed
substance abuse denied
social this past september see above one child conflicted relationship says d always angry w her nursing career for many years see above. lives in own home w d reports had a good childhood not traumatic
mse alert ox3 cooperative lying in bed clutching stuffed animal appears frail and ill speech soft normal rate thought process goal oriented no psychosis mood is depressed affect constricted not suicidal intelligence above aver insight
judgment fair
dx major depression recurrent currently severe unspecified anxiety bereavement
plan for now would use xanax o.25 mg tid to see if that would diminish anxiety as wekk as nausea vomiting enough to allow her to get the ugi as requested. did not alter wellbutrin and zoloft for now as she has been on them for some time. could
consider inc in zoloft but it would not help short term anyway. will see patient again in am offering support.
[2024-11-21] MEDS: XANAX 0.25 MG PO (15:15)
[2024-11-21] MEDS: REQUIP 0.5 MG PO (15:16)
[2024-11-21 15:29] VITALS: BP 124/58
--- NOTE | 2024-11-21 16:02 | CM ---
CM following re: discharge planning.
Reviewed pt's chart, met with pt.
Pt is well known to this CM from previous admissions. Pt confirmed she will return back home with family support when medically stable. 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
D/C plan: home with family.
CM will follow with discharge plan updates as needed.
[2024-11-21 17:14] LABS: Calprotectin, Fecal >3000 ug/g (<=49)
[2024-11-21 18:51] LABS: Hepatitis B Surface Antigen Negative (Negative)
[2024-11-21 19:09] LABS: Hepatitis C Antibody Negative (Negative)
[2024-11-21] MEDS: SOLU-MEDROL PF 40 MG IV (19:57)
[2024-11-21 23:00] VITALS: BP 123/66
[2024-11-22] MEDS: MELATONIN 3 MG PO ×2 (00:32→22:09)
[2024-11-22] MEDS: IMODIUM 2 MG PO ×3 (00:32→22:09)
[2024-11-22] MEDS: SINEMET 25-100 1 TABLET PO ×5 (00:32→22:09)
[2024-11-22] MEDS: XANAX 0.25 MG PO ×4 (00:32→22:09)
[2024-11-22] MEDS: REQUIP 0.5 MG PO ×3 (00:35→20:25)
[2024-11-22] MEDS: NSS 1000 IV (04:43)
[2024-11-22 05:03] LABS: Hematocrit 30.9 % (37.0-47.0); Hemoglobin 10.2 g/dL (12.0-16.0); Mean Corp Hgb Conc. 33.0 g/dL (33.0-37.0); Mean Corpuscular Volume 79.2 fL (81.0-99.0); Nucleated Red Blood Cells % 0 %; Platelet Count 307 10^3/uL (130-400); Red Cell Dist. Width 13.9 % (11.5-14.5)
[2024-11-22] MEDS: SYNTHROID 50 MCG PO (05:20)
[2024-11-22 05:26] LABS: ALT (SGPT) < 10 U/L (0-35); AST (SGOT) 17 U/L (14-36); Albumin 2.5 g/dl (3.5-5.0); Alkaline Phosphatase 74 U/L (38-126); Blood Urea Nitrogen 7 mg/dl (7-17); Calcium 8.8 mg/dl (8.4-10.2); Carbon Dioxide 22 mmol/L (22-30); Chloride 108 mmol/L (98-107); Estimated Creatinine Clearance 67 ml/min; Glucose 132 mg/dl (70-99); Potassium 4.4 mmol/L (3.5-5.1); Sodium 134 mmol/L (135-145); Total Protein 4.7 g/dl (6.3-8.2); eGFR > 60.00
[2024-11-22 05:43] LABS: C-Reactive Protein 126.90 mg/L (0.0-10.00)
[2024-11-22 07:00] VITALS: BP 150/81
--- NOTE | 2024-11-22 07:30 | W.PN.GI.CBS2 ---
Addendum entered and electronically signed by JONATHAN Estrada 11/22/24 12:17:
I left message for [facility] to review pt status.
Addendum entered and electronically signed by Lelo Grajeda DO 11/22/24 09:04:
The patient was seen and examined by me independently in collaboration with the nurse practitioner.
Past medical history/social history/medications/allergies/family history reviewed.
Lab data and imaging data reviewed.
Patient seen in follow-up. Pathology still pending to rule out IBD and CMV, Dr. Abdul to review today.
Due to severity of symptoms, Solumedrol 20mg IV Q8hr started last night. Overnight, patient reports feeling significantly better. No nausea. No diarrhea overnight.
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 Previously received 1 dose of inpatient remicade at [facility], does not recall if she was on steroids long-term with taper.
I am optimistic she will not require further immunosupression with anti-TNF given her rapid improvement with 2 doses of solumedrol.
Will reach out to her oncologist, Dr. Morley, at [facility] to update him on clinical status and confirm follow-up, as he will likely be managing her treatment course if we confirm this is immune-mediated colitis.
Advance diet to low residue/low lactose
Addendum entered and electronically signed by JONATHAN Estrada 11/22/24 07:44:
cont to trend CRP 11/19 140--11/22 126.9
Original Note:
Today's Communication / Plan
-
Etiology of symptoms related to colitis-- concern for prior immune mediated colitis in past pt also stated on Sinemet in September with watermelon inspector ropinirole (pt declines to stop)
-colon path pending--Dr. Grajeda reviewed with path 11/21 to try to expedite result
-IV steroids started 11/21
-some improvement today with nausea and diarrhea this am
will try to touch base with oncologist at [facility] Dr. Miguel A Morley--
will trial low residue/low lactose diet
appreciate psych input
Pt remains on Imodium TID, Questran daily, probiotics -- trend diarrhea and may need to slowly decrease dose
-elevated CRP 140.3, ESR 10, fecal rossy >3000
hepatitis neg /TB testing pending
appreciate psych input
Assessment / Plan
-
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 Patient was admitted with similar symptoms
11/07/2024 and was discharged on 11/12/2024. CT abdomen/pelvis performed during that admission was showing nonspecific pancolitis. Stool studies negative for infection at that time. Patient was discharged on Pepto-Bismol/ Carafate/Pepcid/Zofran.
Last colonoscopy [address] Cortes . During admission pt with persistent difficult with eating, nausea, vomiting and diarrhea with elevated inflammatory marked. Pt also admits to depression with passing of spouse.
-- Nausea/vomiting
-diarrhea prior CT abd 11/07 showing pancolitis-etiology ;infectious versus inflammatory. Prior stool studies negative for infections
-flex sig with diffuse severe inflammation from rectum to rectosigmoid in sigmoid and descending colon
- History of immune mediated colitis 2022 had 1 dose Remicade inpatient and last immunotherapy was June 2024
-J shaped stomach with fattened gastric folds possible HH
-wt loss 10kg since September
-depression s/p psych eval
EGD 11/19/24-- No gross lesions in the entire esophagus. Biopsied. Z-line regular, 37 cm from the incisors.- 2 cm hiatal hernia.Erythematous mucosa in the antrum. Biopsied.- Gastric mucosal atrophy. J shaped stomach. Biopsies taken in the
antrum . Gastric folds are flat without rugae.- Normal examined duodenum until the 2nd portion. Biopsied chronic gastritis
COLONOSCOPY 11/19/24- - Diffuse severe inflammation was found in the rectum, in the recto-sigmoid colon, in the sigmoid colon and in the descending colon. Biopsied.Diverticulosis in the sigmoid colon and in the descending colon. bx pending
plan
Etiology of symptoms related to colitis-- concern for prior immune mediated colitis in past pt also stated on Sinemet in September with watermelon inspector ropinirole (pt declines to stop)
-colon path pending--Dr. Grajeda reviewed with path 11/21 to try to expedite result
-IV steroids started 11/21
-some improvement today with nausea and diarrhea this am
will try to touch base with oncologist at [facility] Dr. Miguel A Morley--
will trial low residue/low lactose diet
appreciate psych input
Pt remains on Imodium TID, Questran daily, probiotics -- trend diarrhea and may need to slowly decrease dose
-elevated CRP 140.3, ESR 10, fecal rossy >3000
hepatitis neg /TB testing pending
appreciate psych input
Will follow
Subjective
Subjective
Date of Service: November 22, 2024
less diarrhea today, feeling better overnight on clear diet and still hesitant for diet but willing to try
Objective
Data Reviewed
Laboratory Data:
Laboratory Results
11/22/24 04:45
11/22/24 04:45
Laboratory Results
Magnesium 1.6 mg/dl (1.6-2.3) 11/20/24 08:40
Total Bilirubin 0.2 mg/dl (0.2-1.3) 11/22/24 04:45
AST 17 U/L (14-36) 11/22/24 04:45
ALT < 10 U/L (0-35) 11/22/24 04:45
Alkaline Phosphatase 74 U/L (38-126) 11/22/24 04:45
Lipase 24 U/L (23-300) 11/16/24 22:38
Vital Signs and I&O:
Vital Signs
Temp Pulse Resp BP Pulse Ox
98.1 F 76 18 123/66 96
11/21/24 23:00 11/21/24 23:00 11/21/24 23:00 11/21/24 23:00 11/21/24 23:00
I&O
11/21/24 11/22/24 11/23/24
06:59 06:59 06:59
Intake Total 1690 / 1690 1950 / 1950
Output Total 275 / 275
Balance 1690 / 1690 1675 / 1675
Physical Exam
Physical Exam
HEENT: Anicteric and Moist mucous membranes
Cardiology: Normal Sinus Rhythm
Pulmonary: Clear
GI: Soft, Distended and Tender (minimal )
Extremities: No Edema
Neuro: Non Focal and Other (more awake and interactive )
[2024-11-22 08:55] LABS: Iron 30 ug/dl (37-170)
[2024-11-22] MEDS: WELLBUTRIN XL (24 hour extended release) 300 MG PO (08:55)
[2024-11-22] MEDS: VISBIOME PO ×2 (08:55→09:10)
[2024-11-22] MEDS: SOLU-MEDROL PF 40 MG IV ×2 (08:56→20:22)
[2024-11-22] MEDS: ZOLOFT 100 MG PO (08:56)
[2024-11-22] MEDS: NSS (PRESERVATIVE FREE) 10 ML IV ×2 (08:56→20:22)
[2024-11-22] MEDS: PROTONIX IV 40 MG IV ×2 (08:56→20:22)
[2024-11-22] MEDS: ASPIR LOW (ENTERIC COATED) PO ×2 (08:56→09:12)
[2024-11-22 09:00] LABS: Total Iron Binding Capacity 189 ug/dl (265-497)
[2024-11-22 11:16] LABS: Ferritin 79.9 ng/ml (11.1-264.0)
--- NOTE | 2024-11-22 12:21 | W.PN.HOSP.TC ---
Today's Communication/Plan
-
low residue diet
stop IVF
cont steroids
Assessment / Plan
Assessment / Plan
74yo F with PMHX of Parkinson, RLS, HX of melanoma, Hx of L nephrectomy, HTN, anxiety came with 1 day of recurrent diarrhea, nausea and vomiting. Discharged from few days ago with same complains and had extensive w/u at that time with negative
stool Cx. MRI abd also was done and was neg. CT was concerning for colitis. Patient was d/c on bismuth, pepcid, PPI, carafate, however it did not help. No other complains noted. No recent change in her usual home medication before onset of the
symptoms 2 weeks ago.
Patient was started on Sinemet in September, the rest of the meds remained the same.
As per daughter - patient started with diarrhea after d/c from rehab at the beginning of Oct, then at the end of oct got progressively worse with nausea.
Improving on steroids
A/P:
#Recurrent diarrhea, nausea, abd pain, concern for autoimmune colitis vs IBD
repeat stool studies: multiple WBC in stool, C.diff remained neg, Norovirus neg, Cx neg
TTG, IGa, anti-gliadin and Endomysial Ab normal
check calprotectin >3000 - steroids started on 11/21/24 and patient improving
stool elastase pending
stool fat neg
ESR WNL, CRP significantly elevated
JESSICA, complement neg
GI consult: EGD/flex sig done on 11/20/24. Gastritis. diffuse severe inflammation was found in the rectum, in the recto-sigmoid colon, in the sigmoid colon and in the descending colon. Biopsy pending, CMV, HSV also sent
Zofran not helpful - Compazine better, Imodium
Offered patient trial to stop Ropinirole - patient declined
#Possible UTI
minimal leukocytosis
ceftriaxone x 3 days completed
Ucx with E.coli and Strep
#Hyponatremia
Improving on IVF
#Hypokalemia
#Hypomagnesemia
replete
#Stable 4 mm nodule in the medial left lung base
repeat CT chest in 6-12mo with PCP
#CARLO
IV iron
#Parkinson disease
#Anxiety/depression
#Hx of CVA with mild L residual weakness
#Hypothyroidism
#Hx of Stage 4 melanoma s/p wide excision and axillary dissection in 2021 and immunotherapy (last completed in Mar as per patient)
#L nephrectomy
#RLS
#Insomnia
cont home meds
Psych consult
DVT ppx Lovenox
Full code
I have spent at least 51min checking chart, test results and providing direct patient care
Anticipated Discharge: 24 - 48 hours
Subjective/Interval History
-
Date of Service: November 22, 2024
Objective Data
-
Labs:
Laboratory Results
11/22/24
04:45
WBC 5.7
Hgb 10.2 L
Hct 30.9 L
Plt Count 307
Sodium 134 L
Potassium 4.4 D
Chloride 108 H
Carbon Dioxide 22
BUN 7
Creatinine 0.6
Glucose 132 H
Calcium 8.8
Total Bilirubin 0.2
AST 17
ALT < 10
Alkaline Phosphatase 74
Vital Signs:
Vital Signs
Temp Pulse Resp BP Pulse Ox
98.2 F 81 20 150/81 98
11/22/24 07:00 11/22/24 07:00 11/22/24 07:00 11/22/24 07:00 11/22/24 07:00
I&O
11/21/24 11/22/24 11/23/24
06:59 06:59 06:59
Intake Total 1690 / 1690 1950 / 1950
Output Total 275 / 275
Balance 1690 / 1690 1675 / 1675
Review of Systems
-
History Source: Patient
All other systems: Reviewed and negative
Physical Exam
-
General: No Apparent Distress
HEENT: Normocephalic
Respiratory: Clear to Auscultation
GI: Soft, Nontender and Nondistended
Genito-urinary: No Costovertebral Tender
Musculoskeletal: No Clubbing, No Cyanosis and No Edema
Neuro: Awake, Alert, Oriented and AO x 3
Psych: Calm
--- NOTE | 2024-11-22 13:17 | CM ---
CM following re: discharge planning.
Reviewed pt's chart, met with pt.
Pt confirmed she will return back home with family support when medically stable. 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
D/C plan: home with family.
CM will follow with discharge plan updates as needed.
--- NOTE | 2024-11-22 14:13 | W.PN.UPDATE ---
Update Note
Progress Note Update
patient seen chart reviewed. spoke with nursing nutritionist public health from gi and dietary. the patient is in much better spirits. she told me she had started on predisone and she feels this and liberalizing diet have helped her. she was notably calmer and nearly
groomed. she spoke a lot about the trials of her life. her of 45 years who actually started out with some type of brain tumor and underwent 5 surgeries until in the last a major blood vessel was nicked and he suffered a stroke. she
reminisced about her life with him; he was her best eliezer, a warm and talented man. she also talked about other hurdles in her life...melanoma which she said she was told was 'nothing ' for some time until finally it was bx then spread to her
kidney. she had nothing but praise for her oncologist whom she credits with not only saving her life but being kind to her and always there to listen. would continue the xanax as is she can skip doses if she finds herself tired and sedated. psych
will see her on the weekend for support.
[2024-11-22 15:00] VITALS: BP 134/77
[2024-11-22] MEDS: IMODIUM PO ×2 (15:30→15:42)
[2024-11-22 23:33] VITALS: BP 140/84
[2024-11-23] MEDS: SYNTHROID 50 MCG PO (05:28)
[2024-11-23 07:20] VITALS: BP 153/86
[2024-11-23] MEDS: IMODIUM 2 MG PO ×2 (08:17→18:25)
[2024-11-23] MEDS: SINEMET 25-100 1 TABLET PO ×4 (08:18→21:45)
[2024-11-23] MEDS: XANAX 0.25 MG PO ×2 (08:18→21:45)
[2024-11-23] MEDS: NSS (PRESERVATIVE FREE) 10 ML IV ×2 (08:18→20:41)
[2024-11-23] MEDS: VISBIOME PO (08:18)
[2024-11-23] MEDS: ZOLOFT 100 MG PO (08:18)
[2024-11-23] MEDS: PROTONIX IV 40 MG IV ×2 (08:18→20:41)
[2024-11-23] MEDS: WELLBUTRIN XL (24 hour extended release) 300 MG PO (08:18)
[2024-11-23] MEDS: SOLU-MEDROL PF 40 MG IV ×2 (08:19→20:39)
--- NOTE | 2024-11-23 08:33 | W.PN.GI.CBS2 ---
Today's Communication / Plan
-
Continue IV steroids, f/u repeat CRP, hep B vaccination if possible
Assessment / Plan
-
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 Patient was admitted with similar symptoms
11/07/2024 and was discharged on 11/12/2024. CT abdomen/pelvis performed during that admission was showing nonspecific pancolitis. Stool studies negative for infection at that time. Patient was discharged on Pepto-Bismol/ Carafate/Pepcid/Zofran.
Last colonoscopy [address] Cortes . During admission pt with persistent difficult with eating, nausea, vomiting and diarrhea with elevated inflammatory marked. Pt also admits to depression with passing of spouse.
-- Nausea/vomiting
-diarrhea prior CT abd 11/07 showing pancolitis-etiology ;infectious versus inflammatory. Prior stool studies negative for infections
-flex sig with diffuse severe inflammation from rectum to rectosigmoid in sigmoid and descending colon
- History of immune mediated colitis 2022 had 1 dose Remicade inpatient and last immunotherapy was June 2024
-J shaped stomach with fattened gastric folds possible HH
-wt loss 10kg since September
-depression s/p psych eval
EGD 11/19/24-- No gross lesions in the entire esophagus. Biopsied. Z-line regular, 37 cm from the incisors.- 2 cm hiatal hernia.Erythematous mucosa in the antrum. Biopsied.- Gastric mucosal atrophy. J shaped stomach. Biopsies taken in the
antrum . Gastric folds are flat without rugae.- Normal examined duodenum until the 2nd portion. Biopsied chronic gastritis
COLONOSCOPY 11/19/24- - Diffuse severe inflammation was found in the rectum, in the recto-sigmoid colon, in the sigmoid colon and in the descending colon. Biopsied.Diverticulosis in the sigmoid colon and in the descending colon. bx pending
--> Pathology not finalized but all tissue fragments demonstrate chronic active colitis
Suspect etiology of colitis is immune mediated, however, unable to differentiate between inflammatory bowel disease and drug mediated colitis on pathology alone, which makes it a bit more difficult. Overall, the treatment/management, is very
similar. Though, the duration of treatment would perhaps be managed differently.
Initially had rapid response to 2x doses of solumedrol, worsening sx overnight requiring more imodium. I feel she likely needs additional IV steroids and am hopeful she will continue to improve in the next 24-48 hours. If no significant improvement,
will need to give inpatient infliximab
Discussed plan with patient's oncologist, Dr. Kaufman, who is in agreement with above
Plan:
-Continue IV steroids (started 11/21), once she shows more improvement, can transition to prednisone 40mg daily
-low fiber, lactose free diet
-f/u final pathology (CMV stain)
-CRP 140.3 --> 126.90, repeat pending
-ESR 10, Fecal rossy >3000
-Hepatitis B negative, also shows she lacks immunity to hepatitis B, recommend vaccination, will see if we can give a dose inpatient* in the event she requires infliximab
-TB pending
-additional stool studies pending
Subjective
Subjective
Date of Service: November 23, 2024
Patient reports her night was pretty difficult, did not have the Imodium she was previously using and had about 8 episodes of small-volume watery diarrhea. She is improved from 2 days ago, she is walking around and even came to the [employer] station
which is a significant improvement from prior exams.
I spoke with pathology yesterday, they discussed her specimens at conference, chronic active colitis seen in all tissue fragments, unfortunately, CMV stain was not done correctly and it was repeated, now pending, will result on Monday.
Objective
Data Reviewed
Laboratory Data:
Laboratory Results
Magnesium 1.6 mg/dl (1.6-2.3) 11/20/24 08:40
Total Bilirubin 0.2 mg/dl (0.2-1.3) 11/22/24 04:45
AST 17 U/L (14-36) 11/22/24 04:45
ALT < 10 U/L (0-35) 11/22/24 04:45
Alkaline Phosphatase 74 U/L (38-126) 11/22/24 04:45
Lipase 24 U/L (23-300) 11/16/24 22:38
Vital Signs and I&O:
Vital Signs
Temp Pulse Resp BP Pulse Ox
98.1 F 99 18 140/84 98
11/22/24 23:33 11/22/24 23:33 11/22/24 23:33 11/22/24 23:33 11/23/24 01:03
I&O
11/22/24 11/23/24 11/24/24
06:59 06:59 06:59
Intake Total 1950 / 1950 890 / 890
Output Total 275 / 275
Balance 1675 / 1675 890 / 890
Physical Exam
Physical Exam
HEENT: Anicteric and Moist mucous membranes
Cardiology: Normal Sinus Rhythm
Pulmonary: Clear
GI: Soft, Distended and Tender (minimal )
Extremities: No Edema
Neuro: Non Focal and Other (more awake and interactive )
--- NOTE | 2024-11-23 10:20 | W.PN.HOSP.TC ---
Today's Communication/Plan
-
cont IV steroids
cont Imodium - decrease interva for meds
Assessment / Plan
Assessment / Plan
74yo F with PMHX of Parkinson, RLS, HX of melanoma, Hx of L nephrectomy, HTN, anxiety came with 1 day of recurrent diarrhea, nausea and vomiting. Discharged from few days ago with same complains and had extensive w/u at that time with negative
stool Cx. MRI abd also was done and was neg. CT was concerning for colitis. Patient was d/c on bismuth, pepcid, PPI, carafate, however it did not help. No other complains noted. No recent change in her usual home medication before onset of the
symptoms 2 weeks ago.
Patient was started on Sinemet in September, the rest of the meds remained the same.
As per daughter - patient started with diarrhea after d/c from rehab at the beginning of Oct, then at the end of oct got progressively worse with nausea.
Improving on steroids
A/P:
#Recurrent diarrhea, nausea, abd pain, concern for autoimmune colitis vs IBD
repeat stool studies: multiple WBC in stool, C.diff remained neg, Norovirus neg, Cx neg
TTG, IgA, anti-gliadin and Endomysial Ab normal
check calprotectin >3000 - steroids started on 11/21/24 and patient initially improving
stool elastase pending
stool fat neg
ESR WNL, CRP significantly elevated
JESSICA, complement neg
GI consult: EGD/flex sig done on 11/20/24. Gastritis. diffuse severe inflammation was found in the rectum, in the recto-sigmoid colon, in the sigmoid colon and in the descending colon. Biopsy pending, CMV, HSV also sent
Zofran not helpful - Compazine better, Imodium
Offered patient trial to stop Ropinirole - patient declined
#Possible UTI
minimal leukocytosis
ceftriaxone x 3 days completed
Ucx with E.coli and Strep
#Hyponatremia
Improving on IVF
#Hypokalemia
#Hypomagnesemia
replete
#Stable 4 mm nodule in the medial left lung base
repeat CT chest in 6-12mo with PCP
#CARLO
IV iron
#Parkinson disease
#Anxiety/depression
#Hx of CVA with mild L residual weakness
#Hypothyroidism
#Hx of Stage 4 melanoma s/p wide excision and axillary dissection in 2021 and immunotherapy (last completed in Mar as per patient)
#L nephrectomy
#RLS
#Insomnia
cont home meds
Psych consult
DVT ppx Lovenox
Full code
I have spent at least 55min checking chart, test results and providing direct patient care
Anticipated Discharge: 24 - 48 hours
Subjective/Interval History
-
Date of Service: November 23, 2024
Objective Data
-
Labs:
Laboratory Results
11/23/24
06:00
WBC Pending
Hgb Pending
Hct Pending
Plt Count Pending
Sodium Pending
Potassium Pending
Chloride Pending
Carbon Dioxide Pending
BUN Pending
Creatinine Pending
Glucose Pending
Calcium Pending
Vital Signs:
Vital Signs
Temp Pulse Resp BP Pulse Ox
98.6 F 86 16 153/86 98
11/23/24 07:20 11/23/24 07:20 11/23/24 07:20 11/23/24 07:20 11/23/24 07:20
I&O
11/22/24 11/23/24 11/24/24
06:59 06:59 06:59
Intake Total 1949 / 1949 890 / 890
Output Total 275 / 275
Balance 1675 / 1675 890 / 890
Review of Systems
-
History Source: Patient
All other systems: Reviewed and negative
Abdomen/GI: Reports Nausea and Diarrhea
Physical Exam
-
General: Appears in Distress
Respiratory: Clear to Auscultation
GI: Soft, Nontender and Nondistended
Neuro: Awake, Alert, Oriented and AO x 3
Psych: Calm
[2024-11-23 10:50] LABS: Hematocrit 31.8 % (37.0-47.0); Hemoglobin 10.4 g/dL (12.0-16.0); Mean Corp Hgb Conc. 32.7 g/dL (33.0-37.0); Mean Corpuscular Volume 79.3 fL (81.0-99.0); Platelet Count 322 10^3/uL (130-400); Red Cell Dist. Width 13.8 % (11.5-14.5)
[2024-11-23 11:18] LABS: Blood Urea Nitrogen 11 mg/dl (7-17); Calcium 9.2 mg/dl (8.4-10.2); Carbon Dioxide 23 mmol/L (22-30); Chloride 104 mmol/L (98-107); Estimated Creatinine Clearance 67 ml/min; Glucose 101 mg/dl (70-99); Potassium 4.0 mmol/L (3.5-5.1); Sodium 130 mmol/L (135-145); eGFR > 60.00
[2024-11-23 11:22] LABS: C-Reactive Protein 48.50 mg/L (0.0-10.00)
--- NOTE | 2024-11-23 12:03 | W.PN.UPDATE ---
Update Note
Progress Note Update
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 Her in September after suffering a CVA due to surgical mishap for treatment of meningioma -- he
was at home with her for a year and a half and required a high level of care. She also has parkinson's disease and hyothyroid and history of successful treatment of Stage 4 melanoma ([place], Immunotherapy).
Diarrhea and vomiting began three weeks ago. had prior admission here for this. She reports vomiting has stopped but she still has severe diarrhea. This is very upsetting/depressing for her.
She has benefitted from Xanax for sleep and took melatonin at home. She was given a PRN Xanax this morning but is frustrated that the order was written TID PRN so I will change to Q4H PRN not holding her to a schedule. I also offered to raise
sertraline from 100 mg. to 150 mg. but she declined; she is also on bupropion XL 300 mg. Neither medicine seems to be related to the diarrhea.
She is now on steroids and GI said she is a bit better. She is not showing any adverse psychiatric effects of the steroid.
Was slightly tearful on exam. Oriented and appropriate. Talkative and engaging. Showed pictures of her horse. No anhedonia. Appreciates her friends. Thinking about downsizing from her 5 BR house. Denies any suicidal ideation. no evidence of
psychosis. Denies manic symptoms.
Will make above noted change in Xanax including a standing bedtime dose which she has found helpful and continue sertraline and bupropiron unchanged. Psychiatry will continue to follow.
--- NOTE | 2024-11-23 12:37 | VATNOTE ---
Education provided on risk/benefit of port access vs peripheral iv. Patient verbalizes understanding and chooses port access over peripheral.
[2024-11-23] MEDS: REQUIP 0.5 MG PO ×2 (14:02→21:45)
[2024-11-23 15:15] VITALS: BP 147/83
[2024-11-23 18:34] LABS: Pancreatic Elastase, Fecal <10 ug/g (>=100)
[2024-11-23] MEDS: MELATONIN 3 MG PO (21:45)
[2024-11-23 23:27] VITALS: BP 145/80
[2024-11-24] MEDS: IMODIUM 2 MG PO ×4 (01:02→23:03)
[2024-11-24] MEDS: SYNTHROID 50 MCG PO (05:14)
[2024-11-24 07:20] VITALS: BP 155/94
[2024-11-24] MEDS: NSS (PRESERVATIVE FREE) 10 ML IV ×2 (08:41→19:59)
[2024-11-24] MEDS: SOLU-MEDROL PF 40 MG IV ×2 (08:41→20:00)
[2024-11-24] MEDS: PROTONIX IV 40 MG IV ×2 (08:41→20:00)
[2024-11-24] MEDS: ZOLOFT 100 MG PO (08:42)
[2024-11-24] MEDS: ASPIR LOW (ENTERIC COATED) PO ×2 (08:42→08:48)
[2024-11-24] MEDS: SINEMET 25-100 1 TABLET PO ×4 (08:42→21:56)
[2024-11-24] MEDS: WELLBUTRIN XL (24 hour extended release) 300 MG PO (08:42)
[2024-11-24] MEDS: VISBIOME PO (08:46)
[2024-11-24] MEDS: XANAX 0.25 MG PO ×3 (08:52→21:56)
--- NOTE | 2024-11-24 09:02 | W.PN.HOSP.TC ---
Today's Communication/Plan
-
objectively improving
Imodium q6h standing
Assessment / Plan
Assessment / Plan
74yo F with PMHX of Parkinson, RLS, HX of melanoma, Hx of L nephrectomy, HTN, anxiety came with 1 day of recurrent diarrhea, nausea and vomiting. Discharged from few days ago with same complains and had extensive w/u at that time with negative
stool Cx. MRI abd also was done and was neg. CT was concerning for colitis. Patient was d/c on bismuth, pepcid, PPI, carafate, however it did not help. No other complains noted. No recent change in her usual home medication before onset of the
symptoms 2 weeks ago.
Patient was started on Sinemet in September, the rest of the meds remained the same.
As per daughter - patient started with diarrhea after d/c from rehab at the beginning of Oct, then at the end of oct got progressively worse with nausea.
Improving on steroids
A/P:
#Recurrent diarrhea, nausea, abd pain, concern for autoimmune colitis vs IBD
repeat stool studies: multiple WBC in stool, C.diff remained neg, Norovirus neg, Cx neg
TTG, IgA, anti-gliadin and Endomysial Ab normal
check calprotectin >3000 - steroids started on 11/21/24 and patient improving: able to tolerate food, Imodium helpful with diarrhea, electrolytes WNL, improving abd pain that is only episodic now
stool elastase pending
stool fat neg
ESR WNL, CRP significantly elevated, improving on steroids
In prep for possibe Ramicade: needs hepB vaccination, Tb Quantiferon neg
JESSICA, complement neg
GI consult: EGD/flex sig done on 11/20/24. Gastritis. diffuse severe inflammation was found in the rectum, in the recto-sigmoid colon, in the sigmoid colon and in the descending colon. Biopsy pending, CMV, HSV also sent
Zofran not helpful - Compazine better, Imodium
Offered patient trial to stop Ropinirole - patient declined
#Possible UTI
minimal leukocytosis
ceftriaxone x 3 days completed
Ucx with E.coli and Strep
#Hyponatremia
Improving on IVF
#Hypokalemia
#Hypomagnesemia
replete
#Stable 4 mm nodule in the medial left lung base
repeat CT chest in 6-12mo with PCP
#CARLO
IV iron
#Parkinson disease
#Anxiety/depression
#Hx of CVA with mild L residual weakness
#Hypothyroidism
#Hx of Stage 4 melanoma s/p wide excision and axillary dissection in 2021 and immunotherapy (last completed in Mar as per patient)
#L nephrectomy
#RLS
#Insomnia
cont home meds
Psych consult
DVT ppx Lovenox
Full code
I have spent at least 55min checking chart, test results and providing direct patient care
Anticipated Discharge: Within 24 hours
Subjective/Interval History
-
Date of Service: November 24, 2024
Objective Data
-
Labs:
Laboratory Results
11/24/24
06:00
WBC Pending
Hgb Pending
Hct Pending
Plt Count Pending
Sodium Pending
Potassium Pending
Chloride Pending
Carbon Dioxide Pending
BUN Pending
Creatinine Pending
Glucose Pending
Calcium Pending
Total Bilirubin Pending
AST Pending
ALT Pending
Alkaline Phosphatase Pending
Vital Signs:
Vital Signs
Temp Pulse Resp BP Pulse Ox
98.3 F 89 16 155/94 97
11/24/24 07:20 11/24/24 07:20 11/24/24 07:20 11/24/24 07:20 11/24/24 07:20
I&O
11/23/24 11/24/24 11/25/24
06:59 06:59 06:59
Intake Total 890 / 890 540 / 540
Balance 890 / 890 540 / 540
Review of Systems
-
History Source: Patient
All other systems: Reviewed and negative
Abdomen/GI: Reports Abdominal Pain (episodic), Nausea (Not there if patient 'does not think about it') and Diarrhea (well responding to imodium)
Physical Exam
-
General: No Apparent Distress and Comfortable
Neuro: Awake, Alert, Oriented and AO x 3
Psych: Calm
--- NOTE | 2024-11-24 09:19 | W.PN.GI.CBS2 ---
Today's Communication / Plan
-
If no significant improvement in diarrhea in next 24 hours, will proceed with infliximab, she should not need standing imodium in addition to 80mg solumedrol in order to control her symptoms
Hep B and TB negative
Lacks immunity to hep B, will give dose of vaccine now, in case we proceed with infliximab
Low fecal elastase, pancreas appears normal on recent MRI. Trial of Zenpep
Discussed with outpatient oncologist, Dr. Kaufman, who is in agreement with above plan
Assessment / Plan
-
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 Patient was admitted with similar symptoms
11/07/2024 and was discharged on 11/12/2024. CT abdomen/pelvis performed during that admission was showing nonspecific pancolitis. Stool studies negative for infection at that time. Patient was discharged on Pepto-Bismol/ Carafate/Pepcid/Zofran.
Last colonoscopy [address] Cortes . During admission pt with persistent difficult with eating, nausea, vomiting and diarrhea with elevated inflammatory marked. Pt also admits to depression with passing of spouse.
-- Nausea/vomiting
-diarrhea prior CT abd 11/07 showing pancolitis-etiology ;infectious versus inflammatory. Prior stool studies negative for infections
-flex sig with diffuse severe inflammation from rectum to rectosigmoid in sigmoid and descending colon
- History of immune mediated colitis 2022 had 1 dose Remicade inpatient and last immunotherapy was June 2024
-J shaped stomach with fattened gastric folds possible HH
-wt loss 10kg since September
-depression s/p psych eval
EGD 11/19/24-- No gross lesions in the entire esophagus. Biopsied. Z-line regular, 37 cm from the incisors.- 2 cm hiatal hernia.Erythematous mucosa in the antrum. Biopsied.- Gastric mucosal atrophy. J shaped stomach. Biopsies taken in the
antrum . Gastric folds are flat without rugae.- Normal examined duodenum until the 2nd portion. Biopsied chronic gastritis
COLONOSCOPY 11/19/24- - Diffuse severe inflammation was found in the rectum, in the recto-sigmoid colon, in the sigmoid colon and in the descending colon. Biopsied.Diverticulosis in the sigmoid colon and in the descending colon. bx pending
--> Pathology not finalized but all tissue fragments demonstrate chronic active colitis
Suspect etiology of colitis is immune mediated, however, unable to differentiate between inflammatory bowel disease and drug mediated colitis on pathology alone, which makes it a bit more difficult. Overall, the treatment/management, is very
similar. Though, the duration of treatment would perhaps be managed differently.
Initially had rapid response to 2x doses of solumedrol, worsening sx overnight requiring more imodium. I feel she likely needs additional IV steroids and am hopeful she will continue to improve in the next 24-48 hours. If no significant improvement,
will need to give inpatient infliximab
Discussed plan with patient's oncologist, Dr. Kaufman, who is in agreement with above
Plan:
-Continue IV steroids (started 11/21), I am concerned she is not responding to the steroids given her need for standing imodium in addition to 80 mg solumedrol (increased from 60mg) That said, I am reassured by her significant improvement in CRP
-low fiber, lactose free diet
-f/u final pathology (CMV stain)
-CRP 140.3 --> 126.90-->48.5 (11/23)
-ESR 10, Fecal rossy >3000
-Hepatitis B negative, also shows she lacks immunity to hepatitis B, recommend vaccination, will give dose now just in case need to proceed with infliximab
-TB negative
-Fecal fat normal; stool pancreatic elastase <10, though this suggests EPI, this is nonspecific and can be seen in a variety of disease processes. Her pancreas appears normal on MRI 11/08/24
-Will give trial zenpep with meals to see if there is any appreciable improvement
Subjective
Subjective
Date of Service: November 24, 2024
Patient seen in follow-up. She is up and moving around, no nausea. Diarrhea uncontrolled on solumedrol unless also taking imodium around the clock. She asked that I update her oncologist. She is nervous about needed a dose of infliximab, which she
has needed in the past
Objective
Data Reviewed
Laboratory Data:
Laboratory Results
Magnesium 1.6 mg/dl (1.6-2.3) 11/20/24 08:40
Total Bilirubin 0.2 mg/dl (0.2-1.3) 11/22/24 04:45
AST 17 U/L (14-36) 11/22/24 04:45
ALT < 10 U/L (0-35) 11/22/24 04:45
Alkaline Phosphatase 74 U/L (38-126) 11/22/24 04:45
Lipase 24 U/L (23-300) 11/16/24 22:38
Vital Signs and I&O:
Vital Signs
Temp Pulse Resp BP Pulse Ox
98.3 F 89 16 155/94 97
11/24/24 07:20 11/24/24 07:20 11/24/24 07:20 11/24/24 07:20 11/24/24 07:20
I&O
11/23/24 11/24/24 11/25/24
06:59 06:59 06:59
Intake Total 890 / 890 540 / 540
Balance 890 / 890 540 / 540
Physical Exam
Physical Exam
HEENT: Anicteric and Moist mucous membranes
Cardiology: Normal Sinus Rhythm
Pulmonary: Clear
GI: Soft, Distended and Tender (minimal )
Extremities: No Edema
Neuro: Non Focal and Other (more awake and interactive )
[2024-11-24] MEDS: IMODIUM PO ×2 (09:42→12:22)
[2024-11-24 11:43] LABS: ALT (SGPT) < 10 U/L (0-35); AST (SGOT) 19 U/L (14-36); Albumin 3.0 g/dl (3.5-5.0); Alkaline Phosphatase 76 U/L (38-126); Blood Urea Nitrogen 11 mg/dl (7-17); Calcium 9.2 mg/dl (8.4-10.2); Carbon Dioxide 26 mmol/L (22-30); Chloride 101 mmol/L (98-107); Estimated Creatinine Clearance 57 ml/min; Glucose 105 mg/dl (70-99); Potassium 3.9 mmol/L (3.5-5.1); Sodium 130 mmol/L (135-145); Total Protein 5.4 g/dl (6.3-8.2); eGFR > 60.00
[2024-11-24] MEDS: COMPAZINE 5 MG PO (12:16)
--- NOTE | 2024-11-24 12:19 | W.PN.UPDATE ---
Update Note
Progress Note Update
74 y/o woman with Parkinson's Disease, hx metastatic melanoma and depression admitted for recurrence of diarrhea. Psychiatrically she has been on sertraline 100 mg. for a long time and more recently bupropion was added as an outpatient from a
telemedicine provider. Yesterday alprazolam was adjusted to 0.25 mg. Q4H PRN and standing dose of 0.25 mg. HS. At home was taking 0.5 mg. HS PRN.
She is unhappy today because she was up all night with diarrhea, so difficulty to assess benefits of alprazolam to help sleep. She would prefer to transfer to [place] where her oncologist practices, although the roofer assistant here spoke to
him and they are in agreement with a plan of potentially giving Remicade which was effective in a single dose in the past. She is treated with SoluMedrol 40 mg. BID, pancreatic enzymes and PRN Imodium as well as low-residue, lactose-free diet
(complains of limited choices).
Not tearful today, pleasant, although multiple minor complaints.
Will continue current medications.
Psychiatry will follow.
[2024-11-24 12:36] LABS: Hematocrit 33.9 % (37.0-47.0); Hemoglobin 11.2 g/dL (12.0-16.0); Mean Corp Hgb Conc. 33.0 g/dL (33.0-37.0); Mean Corpuscular Volume 79.4 fL (81.0-99.0); Platelet Count 381 10^3/uL (130-400); Red Cell Dist. Width 13.6 % (11.5-14.5)
[2024-11-24 13:18] LABS: Nucleated Red Blood Cells % 0 %
[2024-11-24] MEDS: ZENPEP DELAYED RELEASE CAPSULE 1 CAPSULE PO ×2 (13:46→17:39)
--- NOTE | 2024-11-24 15:09 | PTCARENOTE ---
Per Dr. Varma d/c urine, porphobilinogen order.
[2024-11-24 15:41] VITALS: BP 149/81
[2024-11-24] MEDS: REQUIP 0.5 MG PO ×2 (15:44→21:56)
[2024-11-24 15:53] VITALS: BP 134/80
[2024-11-24] MEDS: MELATONIN 3 MG PO (21:56)
[2024-11-24 23:00] VITALS: BP 120/62
[2024-11-25] MEDS: SYNTHROID 50 MCG PO (04:34)
[2024-11-25] MEDS: IMODIUM 2 MG PO ×4 (05:02→23:17)
--- NOTE | 2024-11-25 07:27 | W.PN.GI.CBS2 ---
Today's Communication / Plan
-
Recommend giving infliximab, patient requesting transfer to [place]. Dr. Lemus to call Gabriele Pillai
Assessment / Plan
-
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 Patient was admitted with similar symptoms
11/07/2024 and was discharged on 11/12/2024. CT abdomen/pelvis performed during that admission was showing nonspecific pancolitis. Stool studies negative for infection at that time. Patient was discharged on Pepto-Bismol/ Carafate/Pepcid/Zofran.
Last colonoscopy [address] Cortes . During admission pt with persistent difficult with eating, nausea, vomiting and diarrhea with elevated inflammatory marked. Pt also admits to depression with passing of spouse.
-- Nausea/vomiting--resolved
-diarrhea prior CT abd 11/07 showing pancolitis-etiology ;infectious versus inflammatory. Prior stool studies negative for infections
-flex sig with diffuse severe inflammation from rectum to rectosigmoid in sigmoid and descending colon
- History of immune mediated colitis 2022 had 1 dose Remicade inpatient and last immunotherapy was June 2024
-J shaped stomach with fattened gastric folds possible HH
-wt loss 10kg since September
-depression s/p psych eval
EGD 11/19/24-- No gross lesions in the entire esophagus. Biopsied. Z-line regular, 37 cm from the incisors.- 2 cm hiatal hernia.Erythematous mucosa in the antrum. Biopsied.- Gastric mucosal atrophy. J shaped stomach. Biopsies taken in the
antrum . Gastric folds are flat without rugae.- Normal examined duodenum until the 2nd portion. Biopsied chronic gastritis
COLONOSCOPY 11/19/24- - Diffuse severe inflammation was found in the rectum, in the recto-sigmoid colon, in the sigmoid colon and in the descending colon. Biopsied.Diverticulosis in the sigmoid colon and in the descending colon. bx pending
--> Pathology not finalized but all tissue fragments demonstrate chronic active colitis
Suspect etiology of colitis is immune mediated, however, unable to differentiate between inflammatory bowel disease and drug mediated colitis on pathology alone, which makes it a bit more difficult. Overall, the treatment/management, is very
similar. Though, the duration of treatment would perhaps be managed differently.
Initially had rapid response to 2x doses of solumedrol, but since then, has continued to have watery diarrhea, requiring standing imodium, despite increasing dose of solumedrol to 40mg BID. I recommend moving forward with infliximab. I spoke with
Dr. Kaufman yesterday, who also agreed with this plan. I discussed at length with Kaylene this morning. She is agreeable to proceed with infliximab only if she is transferred to [place]. She is requesting a transfer there today.
Plan:
-Continue IV steroids (started 11/21), I am concerned she is not responding to the steroids given her need for standing imodium in addition to 80 mg solumedrol (increased from 60mg)
-low fiber, lactose free diet
-f/u final pathology (CMV stain)
-CRP 140.3 --> 126.90-->48.5 (11/23)
-ESR 10, Fecal rossy >3000
-Hepatitis B negative, also shows she lacks immunity to hepatitis B, given dose of Hep B vaccine 11/24
-TB negative
-Fecal fat normal; stool pancreatic elastase <10, though this suggests EPI, this is nonspecific and can be seen in a variety of disease processes. Her pancreas appears normal on MRI 11/08/24
- trial zenpep with meals to see if there is any appreciable improvement (started 11/24)
Subjective
Subjective
Date of Service: November 25, 2024
Patient seen in follow-up. Overall, appears well and much improved from a few days ago. That said, she continues to have mutliple episodes of diarrhea throughout the night, requiring imodium at least every 6 hours. At this point, I would recommend
moving forward with infliximab. She has requested transfer to [facility].
Objective
Data Reviewed
Laboratory Data:
Laboratory Results
11/24/24 11:10
11/24/24 11:10
Laboratory Results
Magnesium 1.6 mg/dl (1.6-2.3) 11/20/24 08:40
Total Bilirubin 0.4 mg/dl (0.2-1.3) 11/24/24 11:10
AST 19 U/L (14-36) 11/24/24 11:10
ALT < 10 U/L (0-35) 11/24/24 11:10
Alkaline Phosphatase 76 U/L (38-126) 11/24/24 11:10
Lipase 24 U/L (23-300) 11/16/24 22:38
Vital Signs and I&O:
Vital Signs
Temp Pulse Resp BP Pulse Ox
98.1 F 90 18 120/62 94
11/24/24 23:00 11/24/24 23:00 11/24/24 23:00 11/24/24 23:00 11/24/24 23:00
I&O
11/24/24 11/25/24 11/26/24
06:59 06:59 06:59
Intake Total 540 / 540 1300 / 1300
Balance 540 / 540 1300 / 1300
Physical Exam
Physical Exam
HEENT: Anicteric and Moist mucous membranes
Cardiology: Normal Sinus Rhythm
Pulmonary: Clear
GI: Soft, Distended and Tender (minimal )
Extremities: No Edema
Neuro: Non Focal and Other (more awake and interactive )
[2024-11-25] MEDS: NSS (PRESERVATIVE FREE) 10 ML IV ×2 (08:25→21:28)
[2024-11-25] MEDS: WELLBUTRIN XL (24 hour extended release) 300 MG PO (08:25)
[2024-11-25] MEDS: SINEMET 25-100 1 TABLET PO ×4 (08:25→21:28)
[2024-11-25] MEDS: PROTONIX IV 40 MG IV ×2 (08:26→21:27)
[2024-11-25] MEDS: FLUSH (NSS) 2 FLUSH IV (08:27)
[2024-11-25] MEDS: ZOLOFT 100 MG PO (08:31)
[2024-11-25] MEDS: ZENPEP DELAYED RELEASE CAPSULE 1 CAPSULE PO ×3 (08:31→17:32)
[2024-11-25] MEDS: FLUSH (NSS) 1 FLUSH IV (08:32)
[2024-11-25] MEDS: SOLU-MEDROL PF 40 MG IV ×2 (08:32→21:28)
[2024-11-25] MEDS: VISBIOME PO (08:33)
[2024-11-25 09:25] VITALS: BP 138/86
--- NOTE | 2024-11-25 11:38 | W.PN.HOSP.TC ---
Addendum entered and electronically signed by Armani Lemus MD 11/26/24 11:50:
General: conversant,frustrated
Respiratory: Clear to Auscultation
GI: Soft, Nontender and Nondistended
Neuro: Awake, Alert, Oriented and AO x 3
Psych: Calm
Addendum entered and electronically signed by Armani Lemus MD 11/25/24 14:10:
Got through [facility]. Patient was accepted by Dr. Miracle Ferraro pending prior authorization from insurance which might take few days. Case was discussed with both on GI and patient. Patient now decided to cancel the transfer and wants to stay
here for Remicade infusion. GI notified and agrees. Plan for Remicade infusion tomorrow.
Original Note:
Today's Communication/Plan
-
monitor vitals
see plan
cw IV steroids
GI recommending Remicade. Patient requesting transfer to [facility] for Remicade. GI requesting medicine to initiate transfer if [facility] is able to accept. Called [facility]; left voicemail. Awaiting call back from Dr. Morley office.
Also advised GI for help with transfer and they have been speaking with Dr Morley on this hospitalization
Assessment / Plan
Assessment / Plan
74yo F with PMHX of Parkinson, RLS, HX of melanoma, Hx of L nephrectomy, HTN, anxiety came with 1 day of recurrent diarrhea, nausea and vomiting. Discharged from few days ago with same complains and had extensive w/u at that time with negative
stool Cx. MRI abd also was done and was neg. CT was concerning for colitis. Patient was d/c on bismuth, pepcid, PPI, carafate, however it did not help. No other complains noted. No recent change in her usual home medication before onset of the
symptoms 2 weeks ago.
Patient was started on Sinemet in September, the rest of the meds remained the same.
As per daughter - patient started with diarrhea after d/c from rehab at the beginning of Oct, then at the end of oct got progressively worse with nausea.
Improving on steroids
A/P:
#Recurrent diarrhea, nausea, abd pain, concern for autoimmune colitis vs IBD
repeat stool studies: multiple WBC in stool, C.diff remained neg, Norovirus neg, Cx neg
TTG, IgA, anti-gliadin and Endomysial Ab normal
check calprotectin >3000 - steroids started on 11/21/24 and patient was initially improving however now persistent diarrhea requiring standing Imodium. GI recommending Remicade. Patient requesting transfer to [facility] for Remicade. GI requesting
medicine to initiate transfer if [facility] is able to accept. Called [facility] onc[facility]; left voicemail. Awaiting call back from Dr. Morley office. Also requested GI for help with transfer and they have been speaking with Dr Morley on this
hospitalization
stool elastase p<10
stool fat neg
ESR WNL, CRP significantly elevated, improving on steroids
In prep for possible Ramicade: needs hepB vaccination, Tb Quantiferon neg
JESSICA, complement neg
GI consult: EGD/flex sig done on 11/20/24. Gastritis. diffuse severe inflammation was found in the rectum, in the recto-sigmoid colon, in the sigmoid colon and in the descending colon. Biopsy pending, CMV, HSV also sent
Zofran not helpful - Compazine better, Imodium
Offered patient trial to stop Ropinirole - patient declined
#Possible UTI
minimal leukocytosis
ceftriaxone x 3 days completed
Ucx with E.coli and Strep
#Hyponatremia
Improving on IVF
#Hypokalemia
#Hypomagnesemia
replete
#Stable 4 mm nodule in the medial left lung base
repeat CT chest in 6-12mo with PCP
#CARLO
IV iron
#Parkinson disease
#Anxiety/depression
#Hx of CVA with mild L residual weakness
#Hypothyroidism
#Hx of Stage 4 melanoma s/p wide excision and axillary dissection in 2021 and immunotherapy (last completed in Mar as per patient)
#L nephrectomy
#RLS
#Insomnia
cont home meds
Psych consult
DVT ppx Lovenox
Full code
I spent a total of 52 minutes with the patient or on the floor. More than 50% of this time involved counseling and coordination of care.
Anticipated Discharge: > 48 hours
Subjective/Interval History
-
Date of Service: November 25, 2024
Continues to have diarrhea
Objective Data
-
Vital Signs:
Vital Signs
Temp Pulse Resp BP Pulse Ox
97.8 F 88 20 138/86 98
11/25/24 09:25 11/25/24 09:25 11/25/24 09:25 11/25/24 09:25 11/25/24 10:37
I&O
11/24/24 11/25/24 11/26/24
06:59 06:59 06:59
Intake Total 540 / 540 1300 / 1300
Balance 540 / 540 1300 / 1300
[2024-11-25] MEDS: REQUIP 0.5 MG PO ×2 (14:16→21:51)
[2024-11-25] MEDS: XANAX 0.25 MG PO ×2 (14:20→21:28)
--- NOTE | 2024-11-25 15:23 | CM ---
CM following re: discharge planning.
Reviewed pt's chart, met with pt.
Per MD, pt cancelled transfer to [facility] and wants to stay here for Remicade infusion. Plan for Remicade infusion tomorrow.
Pt confirmed she will return back home with family support when medically stable. Pt described herself as independent in all areas [employer].
D/C plan: home with family.
CM will follow with discharge plan updates as needed.
[2024-11-25 15:40] VITALS: BP 140/87
--- NOTE | 2024-11-25 15:51 | W.PN.UPDATE ---
Update Note
Progress Note Update
pt seen for assessment. friend in room with [facility] PTSD therapy dog. Pt hoping to go to [facility] today, feels more comfortable there (has had much care there.) Upbeat as long as that is discussed, though becomes tearful when talking about loss of
last January. Very close, very good man; one of his friends also this summer. Agree no indiecation for medication change, would support judicious use of alprazolam
[2024-11-25] MEDS: MELATONIN 3 MG PO (21:28)
[2024-11-25 23:22] VITALS: BP 123/73
[2024-11-26] VITALS (14 sets, daily range): BP systolic 123–150; BP diastolic 64–99
[2024-11-26] MEDS: SYNTHROID 50 MCG PO (05:52)
[2024-11-26] MEDS: IMODIUM 2 MG PO ×3 (05:52→23:14)
[2024-11-26 06:41] LABS: ALT (SGPT) < 10 U/L (0-35); AST (SGOT) 16 U/L (14-36); Albumin 2.8 g/dl (3.5-5.0); Alkaline Phosphatase 71 U/L (38-126); Blood Urea Nitrogen 14 mg/dl (7-17); Calcium 9.2 mg/dl (8.4-10.2); Carbon Dioxide 26 mmol/L (22-30); Chloride 101 mmol/L (98-107); Estimated Creatinine Clearance 57 ml/min; Glucose 113 mg/dl (70-99); Potassium 4.0 mmol/L (3.5-5.1); Sodium 128 mmol/L (135-145); Total Protein 5.2 g/dl (6.3-8.2); eGFR > 60.00
[2024-11-26 06:52] LABS: Hematocrit 33.4 % (37.0-47.0); Hemoglobin 11.1 g/dL (12.0-16.0); Mean Corp Hgb Conc. 33.2 g/dL (33.0-37.0); Mean Corpuscular Volume 79.9 fL (81.0-99.0); Nucleated Red Blood Cells % 0.1 %; Platelet Count 362 10^3/uL (130-400); Red Cell Dist. Width 13.8 % (11.5-14.5)
[2024-11-26] MEDS: ZENPEP DELAYED RELEASE CAPSULE 1 CAPSULE PO ×2 (08:13→18:14)
[2024-11-26] MEDS: WELLBUTRIN XL (24 hour extended release) 300 MG PO (08:13)
[2024-11-26] MEDS: VISBIOME 1 CAP PO (08:13)
[2024-11-26] MEDS: ZOLOFT 100 MG PO (08:13)
[2024-11-26] MEDS: SINEMET 25-100 1 TABLET PO ×4 (08:13→21:16)
[2024-11-26] MEDS: NSS (PRESERVATIVE FREE) 10 ML IV ×2 (08:13→21:15)
[2024-11-26] MEDS: PROTONIX IV 40 MG IV ×2 (08:14→21:16)
[2024-11-26] MEDS: SOLU-MEDROL PF 40 MG IV (08:14)
[2024-11-26] MEDS: ASPIR LOW (ENTERIC COATED) PO (08:20)
[2024-11-26] MEDS: BENADRYL 50 MG PO (09:13)
[2024-11-26] MEDS: TYLENOL 650 MG PO (09:14)
[2024-11-26] MEDS: REMICADE 250 MG IV (10:38)
[2024-11-26] MEDS: XANAX 0.25 MG PO ×2 (11:12→21:16)
[2024-11-26] MEDS: IMODIUM PO ×2 (11:13→18:13)
[2024-11-26] MEDS: ZENPEP DELAYED RELEASE CAPSULE PO (11:13)
--- NOTE | 2024-11-26 11:45 | W.PN.HOSP.TC ---
Addendum entered and electronically signed by Armani Lemus MD 11/26/24 13:23:
correction: Check urine and serum Osm
Original Note:
Today's Communication/Plan
-
Monitor vital signs see plan
Check urine and serum awesome, urine lites
Remicade to start today per GI
Monitor BM's
steroid decreased
Monitor leukocytosis
Assessment / Plan
Assessment / Plan
74yo F with PMHX of Parkinson, RLS, HX of melanoma, Hx of L nephrectomy, HTN, anxiety came with 1 day of recurrent diarrhea, nausea and vomiting. Discharged from few days ago with same complains and had extensive w/u at that time with negative
stool Cx. MRI abd also was done and was neg. CT was concerning for colitis. Patient was d/c on bismuth, pepcid, PPI, carafate, however it did not help. No other complains noted. No recent change in her usual home medication before onset of the
symptoms 2 weeks ago.
Patient was started on Sinemet in September, the rest of the meds remained the same.
As per daughter - patient started with diarrhea after d/c from rehab at the beginning of Oct, then at the end of oct got progressively worse with nausea.
Improving on steroids
A/P:
#Recurrent diarrhea, nausea, abd pain, concern for autoimmune colitis vs IBD
repeat stool studies: multiple WBC in stool, C.diff remained neg, Norovirus neg, Cx neg
TTG, IgA, anti-gliadin and Endomysial Ab normal
check calprotectin >3000 - steroids started on 11/21/24 and patient was initially improving however now persistent diarrhea requiring standing Imodium. GI recommending Remicade. Remicade to start 11/26
Patient initially was interested in getting transferred to [place] however now agreeable for Remicade infusion here
Leukocytosis could likely be secondary to steroids, Solu-Medrol now decreased to 20 every 12
stool elastase p<10
stool fat neg
ESR WNL, CRP significantly elevated, improving on steroids
In prep for possible Ramicade: needs hepB vaccination, Tb Quantiferon neg
JESSICA, complement neg
GI consult: EGD/flex sig done on 11/20/24. Gastritis. diffuse severe inflammation was found in the rectum, in the recto-sigmoid colon, in the sigmoid colon and in the descending colon. Biopsy pending, CMV, HSV also sent
Zofran not helpful - Compazine better, Imodium
Offered patient trial to stop Ropinirole - patient declined
#Possible UTI
minimal leukocytosis
ceftriaxone x 3 days completed
Ucx with E.coli and Strep
#Hyponatremia
Check urine and serum awesome, urine lites
Monitor
#Hypokalemia
#Hypomagnesemia
replete
#Stable 4 mm nodule in the medial left lung base
repeat CT chest in 6-12mo with PCP
#CARLO
IV iron
#Parkinson disease
#Anxiety/depression
#Hx of CVA with mild L residual weakness
#Hypothyroidism
#Hx of Stage 4 melanoma s/p wide excision and axillary dissection in 2021 and immunotherapy (last completed in Mar as per patient)
#L nephrectomy
#RLS
#Insomnia
cont home meds
Psych consult
DVT ppx Lovenox
Full code
General: not in Distress
Respiratory: Clear to Auscultation
GI: Soft, Nontender and Nondistended
Neuro: Awake, Alert, Oriented and AO x 3
Psych: Calm
I spent a total of 51 minutes with the patient or on the floor. More than 50% of this time involved counseling and coordination of care.
Anticipated Discharge: 24 - 48 hours
Subjective/Interval History
-
Date of Service: November 26, 2024
Still has diarrhea
Objective Data
-
Labs:
Laboratory Results
11/26/24
06:05
WBC 17.0 H
Hgb 11.1 L
Hct 33.4 L
Plt Count 362
Sodium 128 L
Potassium 4.0
Chloride 101
Carbon Dioxide 26
BUN 14
Creatinine 0.7
Glucose 113 H
Calcium 9.2
Total Bilirubin 0.3
AST 16
ALT < 10
Alkaline Phosphatase 71
Vital Signs:
Vital Signs
Temp Pulse Resp BP Pulse Ox
98.1 F 85 18 126/81 98
11/26/24 11:39 11/26/24 11:39 11/26/24 11:39 11/26/24 11:39 11/26/24 11:39
I&O
11/25/24 11/26/24 11/27/24
06:59 06:59 06:59
Intake Total 1300 / 1300 1240 / 1240
Balance 1300 / 1300 1240 / 1240
--- NOTE | 2024-11-26 12:29 | W.PN.GI.CBS2 ---
Today's Communication / Plan
-
Start infliximab, decrease steroids
Assessment / Plan
-
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 Patient was admitted with similar symptoms
11/07/2024 and was discharged on 11/12/2024. CT abdomen/pelvis performed during that admission was showing nonspecific pancolitis. Stool studies negative for infection at that time. Patient was discharged on Pepto-Bismol/ Carafate/Pepcid/Zofran.
Last colonoscopy [address] Cortes . During admission pt with persistent difficult with eating, nausea, vomiting and diarrhea with elevated inflammatory marked. Pt also admits to depression with passing of spouse.
-- Nausea/vomiting--resolved
-diarrhea prior CT abd 11/07 showing pancolitis-etiology ;infectious versus inflammatory. Prior stool studies negative for infections
-flex sig with diffuse severe inflammation from rectum to rectosigmoid in sigmoid and descending colon
- History of immune mediated colitis 2022 had 1 dose Remicade inpatient and last immunotherapy was June 2024
-J shaped stomach with fattened gastric folds possible HH
-wt loss 10kg since September
-depression s/p psych eval
EGD 11/19/24-- No gross lesions in the entire esophagus. Biopsied. Z-line regular, 37 cm from the incisors.- 2 cm hiatal hernia.Erythematous mucosa in the antrum. Biopsied.- Gastric mucosal atrophy. J shaped stomach. Biopsies taken in the
antrum . Gastric folds are flat without rugae.- Normal examined duodenum until the 2nd portion. Biopsied chronic gastritis
COLONOSCOPY 11/19/24- - Diffuse severe inflammation was found in the rectum, in the recto-sigmoid colon, in the sigmoid colon and in the descending colon. Biopsied.Diverticulosis in the sigmoid colon and in the descending colon. bx pending
--> Pathology not finalized but all tissue fragments demonstrate chronic active colitis, CMV neg
Suspect etiology of colitis is immune mediated, however, unable to differentiate between inflammatory bowel disease and drug mediated colitis on pathology alone, which makes it a bit more difficult. Overall, the treatment/management, is very
similar. Though, the duration of treatment would perhaps be managed differently.
Initially had rapid response to 2x doses of solumedrol, but since then, has continued to have watery diarrhea, requiring standing imodium, despite increasing dose of solumedrol to 40mg BID. I recommend moving forward with infliximab.
Plan:
-Continue IV steroids (started 11/21), I am concerned she is not responding to the steroids given her need for standing imodium in addition to 80 mg solumedrol (increased from 60mg), proceed with infliximab 5 mg/kg (11/26), will give pre-dose
benadryl and tylenol
-Decrease steroids, 20mg q12, will continue to slowly taper
-low fiber, lactose free diet
-CMV negative
-CRP 140.3 --> 126.90-->48.5 (11/23)
-ESR 10, Fecal rossy >3000
-Hepatitis B negative, also shows she lacks immunity to hepatitis B, given dose of Hep B vaccine 11/24
-TB negative
-Fecal fat normal; stool pancreatic elastase <10, though this suggests EPI, this is nonspecific and can be seen in a variety of disease processes. Her pancreas appears normal on MRI 11/08/24
- trial zenpep with meals to see if there is any appreciable improvement (started 11/24)
Subjective
Subjective
Date of Service: November 26, 2024
Patient seen in follow-up. No improvement overnight. Will proceed with inpatient remicade today.
Objective
Data Reviewed
Laboratory Data:
Laboratory Results
11/26/24 06:05
11/26/24 06:05
Laboratory Results
Magnesium 1.6 mg/dl (1.6-2.3) 11/20/24 08:40
Total Bilirubin 0.3 mg/dl (0.2-1.3) 11/26/24 06:05
AST 16 U/L (14-36) 11/26/24 06:05
ALT < 10 U/L (0-35) 11/26/24 06:05
Alkaline Phosphatase 71 U/L (38-126) 11/26/24 06:05
Lipase 24 U/L (23-300) 11/16/24 22:38
Vital Signs and I&O:
Vital Signs
Temp Pulse Resp BP Pulse Ox
98.0 F 84 16 137/82 96
11/26/24 12:26 11/26/24 12:26 11/26/24 12:26 11/26/24 12:26 11/26/24 12:26
I&O
11/25/24 11/26/24 11/27/24
06:59 06:59 06:59
Intake Total 1300 / 1300 1240 / 1240
Balance 1300 / 1300 1240 / 1240
Physical Exam
Physical Exam
HEENT: Anicteric and Moist mucous membranes
Cardiology: Normal Sinus Rhythm
Pulmonary: Clear
GI: Soft, Non Distended and Non Tender
Extremities: No Edema
Neuro: Non Focal and Other
--- NOTE | 2024-11-26 12:47 | CM ---
CM following re: discharge planning.
Reviewed pt's chart, met with pt.
Per chart review, Remicade to start today per GI, continue supportive care.
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 Pt confirmed she will return back home with family support when medically stable.
D/C plan: home with family.
CM will follow with discharge plan updates as needed.
[2024-11-26] MEDS: NSS 1000 IV (13:36)
[2024-11-26] MEDS: REQUIP 0.5 MG PO ×2 (15:16→23:11)
[2024-11-26] MEDS: MELATONIN 3 MG PO (21:16)
[2024-11-26] MEDS: SOLU-MEDROL PF 20 MG IV (21:16)
--- NOTE | 2024-11-27 02:17 | DOWNTIME ---
There was a [employer] Client Geotechnician Downtime on 11/27/2024 from 0100 to 11/27/2024 at 0215. Downtime documentation of patient's care, including medication administrations, has been reconciled in the electronic record per guidelines. Refer to the
patient's paper chart under the miscellaneous tab to see printed paper medication records and downtime forms.
[2024-11-27] MEDS: IMODIUM 2 MG PO ×4 (05:01→23:22)
[2024-11-27] MEDS: SYNTHROID 50 MCG PO (05:04)
[2024-11-27 07:00] VITALS: BP 152/80
[2024-11-27 07:30] LABS: Hematocrit 32.6 % (37.0-47.0); Hemoglobin 10.6 g/dL (12.0-16.0); Mean Corp Hgb Conc. 32.5 g/dL (33.0-37.0); Mean Corpuscular Volume 80.5 fL (81.0-99.0); Platelet Count 345 10^3/uL (130-400); Red Cell Dist. Width 13.9 % (11.5-14.5)
[2024-11-27 07:56] LABS: ALT (SGPT) < 10 U/L (0-35); AST (SGOT) 18 U/L (14-36); Albumin 2.8 g/dl (3.5-5.0); Alkaline Phosphatase 72 U/L (38-126); Blood Urea Nitrogen 14 mg/dl (7-17); Calcium 8.7 mg/dl (8.4-10.2); Carbon Dioxide 24 mmol/L (22-30); Chloride 103 mmol/L (98-107); Estimated Creatinine Clearance 57 ml/min; Glucose 86 mg/dl (70-99); Magnesium 1.7 mg/dl (1.6-2.3); Potassium 3.7 mmol/L (3.5-5.1); Sodium 131 mmol/L (135-145); Total Protein 5.0 g/dl (6.3-8.2); eGFR > 60.00
[2024-11-27] MEDS: WELLBUTRIN XL (24 hour extended release) 300 MG PO (08:14)
[2024-11-27] MEDS: SINEMET 25-100 1 TABLET PO ×4 (08:14→21:48)
[2024-11-27] MEDS: ZENPEP DELAYED RELEASE CAPSULE 1 CAPSULE PO ×3 (08:14→17:50)
[2024-11-27] MEDS: ZOLOFT 100 MG PO (08:15)
[2024-11-27] MEDS: SOLU-MEDROL PF 20 MG IV ×2 (08:15→21:48)
[2024-11-27] MEDS: VISBIOME 1 CAP PO (08:15)
[2024-11-27] MEDS: PROTONIX IV 40 MG IV ×2 (08:15→21:47)
[2024-11-27] MEDS: NSS (PRESERVATIVE FREE) 10 ML IV ×2 (08:15→21:47)
[2024-11-27 09:04] LABS: Nucleated Red Blood Cells % 0 %
--- NOTE | 2024-11-27 09:07 | PN.CDI ---
CDI
- -
CDI:
Physician Documentation Request
Admit Date: 11/17/24 09:19
Dear Doctor Allan,
Patient admitted with colitis.
11/25 Nutrition note, ' Pt appears to have lost 23 lbs (16% wt change < 3 months)-significant. She confirmed intakes prior to admission of <75% estimated energy requirement for > 1 month along with the weight loss as indicated above in note. Pt
currently meeting criteria for severe protein/calorie malnutrition (ASPEN/AND guidelines, chronic illness).
Please provide in your note the diagnosis associated with the above nutritional findings and your assessment:
Severe protein calorie malnutrition of chronic illness
Other (please specify)
[place] Criteria ([employer] Hospitalist 2017)
2 or more criteria must be present for either
non severe or severe malnutrition
Note that the criteria differs related to the
presence of an acute or chronic illness
Chronic Illness
Energy Intake Non Severe: <75% for >1 month
Severe: <75% for >1 month
Weight Loss Non Severe: 5% over 1 month
7.5% over 3 months
10% over 6 months
20% over 1 year
Severe: >5% over 1 month
>7.5% over 3 months
>10% over 6 months
>20% over 1 year
Body Fat Non Severe: Mild Loss
Severe: Severe Loss
Muscle Mass Non Severe: Mild Loss
Severe: Severe Loss
Fluid Accumulation Non Severe: Mild Accumulation
Severe: Moderate to severe
accumulation
Reduced Agronomy Instructor Strength Non Severe: N/A
Severe: Measurably reduced
Use of terms such as suspected, likely, concern for, or probable (associated with a specific diagnosis that is being evaluated, monitored, or treated as if it exists) are acceptable and can be coded in the inpatient setting, when documented at the
time of discharge.
Thank you,
Ariana FRANCOISN, RN,CCDS
CDI Specialist
Available via tiger text
Please use your independent medical judgment in providing your response.
--- NOTE | 2024-11-27 10:38 | W.PN.GI.CBS2 ---
Addendum entered and electronically signed by Lelo Grajeda, DO 11/27/24 13:27:
The patient was seen and examined by me independently in collaboration with the nurse practitioner.
Past medical history/social history/medications/allergies/family history reviewed.
Lab data and imaging data reviewed.
Patient seen in follow-up. She received Remicade 5 mg/kg yesterday. Very difficult to appreciate improvement in sx as she continues to demand standing Imodium. If she doesn't take Imodium, states she has 10 episodes of diarrhea daily. At this point,
I dont feel she has had an appropriate response to steroids or remicade, but recommend monitoring over the next 24-48 hours. She states she wants to leave. She has not made enough of an improvement to leave the hospital, so this would be against
medical advice. Will add cansa for urgency. Rest of care as per below.
Original Note:
Today's Communication / Plan
-
s/p remicade 5 mg/kg on 11/26 was improved til 4:30am and frequent stools
cont IV steroids 20mg BID
cont standing Imodium and Questran-- added also PRN for additional dose if needed (max Imodium 16mg/day)
- trial zenpep with meals to see if there is any appreciable improvement (started 11/24)
will review with Dr. Grajeda for adding Canasa suppository to see if help with urgency
-low fiber, lactose free diet--- pt declines restriction and counseled changed to regular diet will add ensure with low albumin
-CMV negative
-CRP 140.3 --> 126.90-->48.5 (11/23)
-ESR 10, Fecal rossy >3000
-Hepatitis B negative, also shows she lacks immunity to hepatitis B, given dose of Hep B vaccine 11/24
-TB negative
-Fecal fat normal; stool pancreatic elastase <10, though this suggests EPI, this is nonspecific and can be seen in a variety of disease processes. Her pancreas appears normal on MRI 11/08/24
I spoke with patient at length as declining Lovenox and compression stocking-- she is high risk for clot and stressed need to use-- she still declines but education on importance of medication.
she is scheduled 12/10 OP follow up with [facility] oncology for continued care after discharge
Assessment / Plan
-
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 Current IV
steroids, 11/26 remicade and still with loose stools.
-- Nausea/vomiting--resolved
-diarrhea prior CT abd 11/07 showing pancolitis-etiology ;infectious versus inflammatory. Prior stool studies negative for infections
-flex sig with diffuse severe inflammation from rectum to rectosigmoid in sigmoid and descending colon
-known hx immune mediated colitis 2022 and recurrent now with prior remicade --s/p remicade 11/26 during this admission as not responsive to IV steroids
-J shaped stomach with fattened gastric folds possible HH
-wt loss 10kg since September
-depression s/p psych eval
EGD 11/19/24-- No gross lesions in the entire esophagus. Biopsied. Z-line regular, 37 cm from the incisors.- 2 cm hiatal hernia.Erythematous mucosa in the antrum. Biopsied.- Gastric mucosal atrophy. J shaped stomach. Biopsies taken in the
antrum . Gastric folds are flat without rugae.- Normal examined duodenum until the 2nd portion. Biopsied chronic gastritis
COLONOSCOPY 11/19/24- - Diffuse severe inflammation was found in the rectum, in the recto-sigmoid colon, in the sigmoid colon and in the descending colon. Biopsied.Diverticulosis in the sigmoid colon and in the descending colon. bx pending
--> Pathology not finalized but all tissue fragments demonstrate chronic active colitis, CMV neg
Plan:
s/p remicade 5 mg/kg on 11/26 was improved til 4:30am and frequent stools
cont IV steroids 20mg BID
cont standing Imodium and Questran-- added also PRN for additional dose if needed (max Imodium 16mg/day)
- trial zenpep with meals to see if there is any appreciable improvement (started 11/24)
will review with Dr. Grajeda for adding Canasa suppository to see if help with urgency
-low fiber, lactose free diet--- pt declines restriction and counseled changed to regular diet will add ensure with low albumin
-CMV negative
-CRP 140.3 --> 126.90-->48.5 (11/23)
-ESR 10, Fecal rossy >3000
-Hepatitis B negative, also shows she lacks immunity to hepatitis B, given dose of Hep B vaccine 11/24
-TB negative
-Fecal fat normal; stool pancreatic elastase <10, though this suggests EPI, this is nonspecific and can be seen in a variety of disease processes. Her pancreas appears normal on MRI 11/08/24
I spoke with patient at length as declining Lovenox and compression stocking-- she is high risk for clot and stressed need to use-- she still declines but education on importance of medication.
she is scheduled 12/10 OP follow up with [facility] for continued care after discharge
Subjective
Subjective
Date of Service: November 27, 2024
Pt was doing better til 4:30 am then increased diarrhea and was not due for imodium yet
Objective
Data Reviewed
Laboratory Data:
Laboratory Results
11/27/24 06:35
11/27/24 06:35
Laboratory Results
Magnesium 1.7 mg/dl (1.6-2.3) 11/27/24 06:35
Total Bilirubin 0.2 mg/dl (0.2-1.3) 11/27/24 06:35
AST 18 U/L (14-36) 11/27/24 06:35
ALT < 10 U/L (0-35) 11/27/24 06:35
Alkaline Phosphatase 72 U/L (38-126) 11/27/24 06:35
Lipase 24 U/L (23-300) 11/16/24 22:38
Vital Signs and I&O:
Vital Signs
Temp Pulse Resp BP Pulse Ox
97.9 F 81 16 152/80 98
11/27/24 07:00 11/27/24 07:00 11/27/24 07:00 11/27/24 07:00 11/27/24 07:00
I&O
11/26/24 11/27/24 11/28/24
06:59 06:59 06:59
Intake Total 1240 / 1240 1560 / 1560
Output Total 650 / 650
Balance 1240 / 1240 910 / 910
Physical Exam
Physical Exam
HEENT: Anicteric and Moist mucous membranes
Cardiology: Normal Sinus Rhythm
Pulmonary: Clear
GI: Soft, Non Distended and Non Tender
Extremities: No Edema
Neuro: Non Focal
[2024-11-27] MEDS: IMODIUM PO (11:28)
[2024-11-27] MEDS: XANAX 0.25 MG PO (11:29)
--- NOTE | 2024-11-27 12:27 | CM ---
CM following re: discharge planning.
Reviewed pt's chart, met with pt.
Per chart review, pt is scheduled 12/10 OP follow up with [facility] oncology for continued care after discharge , continue supportive care.
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 Pt confirmed she will return back home with family support when medically stable.
D/C plan: home with family.
CM will follow with discharge plan updates as need
--- NOTE | 2024-11-27 12:58 | W.PN.HOSP.TC ---
Today's Communication/Plan
-
Monitor vital signs see plan
Monitor stool frequency, once improving and feeling better then likely can be discharged
Status post Remicade 11/26
Continue with Imodium standing and as needed
GI following
monitor sodium
Assessment / Plan
Assessment / Plan
74yo F with PMHX of Parkinson, RLS, HX of melanoma, Hx of L nephrectomy, HTN, anxiety came with 1 day of recurrent diarrhea, nausea and vomiting. Discharged from few days ago with same complains and had extensive w/u at that time with negative
stool Cx. MRI abd also was done and was neg. CT was concerning for colitis. Patient was d/c on bismuth, pepcid, PPI, carafate, however it did not help. No other complains noted. No recent change in her usual home medication before onset of the
symptoms 2 weeks ago.
Patient was started on Sinemet in September, the rest of the meds remained the same.
As per daughter - patient started with diarrhea after d/c from rehab at the beginning of Oct, then at the end of oct got progressively worse with nausea.
Improving on steroids
A/P:
#Recurrent diarrhea, nausea, abd pain, concern for autoimmune colitis vs IBD
repeat stool studies: multiple WBC in stool, C.diff remained neg, Norovirus neg, Cx neg
TTG, IgA, anti-gliadin and Endomysial Ab normal
check calprotectin >3000 - steroids started on 11/21/24 and patient was initially improving however now persistent diarrhea requiring standing Imodium. GI recommending Remicade. s/p Remicade 11/26. still has frequent stools this morning. These
will need to get better. Continue with Imodium standing and as needed
Patient initially was interested in getting transferred to [place] however now agreeable for Remicade infusion here
Leukocytosis could likely be secondary to steroids, Solu-Medrol now decreased to 20 every 12
stool elastase p<10
stool fat neg
ESR WNL, CRP significantly elevated, improving on steroids
In prep for possible Ramicade: needs hepB vaccination, Tb Quantiferon neg
JESSICA, complement neg
GI consult: EGD/flex sig done on 11/20/24. Gastritis. diffuse severe inflammation was found in the rectum, in the recto-sigmoid colon, in the sigmoid colon and in the descending colon. Biopsy pending, CMV, HSV also sent
Zofran not helpful - Compazine better, Imodium
Offered patient trial to stop Ropinirole - patient declined
#Possible UTI
minimal leukocytosis
ceftriaxone x 3 days completed
Ucx with E.coli and Strep
#Hyponatremia
Suspect secondary to dehydration, now improving
Monitor
#Hypokalemia
#Hypomagnesemia
replete
#Stable 4 mm nodule in the medial left lung base
repeat CT chest in 6-12mo with PCP
#CARLO
Severe protein calorie malnutrition of chronic illness
#Parkinson disease
#Anxiety/depression
#Hx of CVA with mild L residual weakness
#Hypothyroidism
#Hx of Stage 4 melanoma s/p wide excision and axillary dissection in 2021 and immunotherapy (last completed in Mar as per patient)
#L nephrectomy
#RLS
#Insomnia
cont home meds
Psych consult
DVT ppx Lovenox
Full code
General: not in Distress
Respiratory: Clear to Auscultation
GI: Soft, Nontender and Nondistended
Neuro: Awake, Alert, Oriented and AO x 3
Psych: Calm
Anticipated Discharge: Within 24 hours
Subjective/Interval History
-
Date of Service: November 27, 2024
denies nausea
Objective Data
-
Labs:
Laboratory Results
11/27/24
06:35
WBC 14.8 H
Hgb 10.6 L
Hct 32.6 L
Plt Count 345
Sodium 131 L
Potassium 3.7
Chloride 103
Carbon Dioxide 24
BUN 14
Creatinine 0.7
Glucose 86
Calcium 8.7
Total Bilirubin 0.2
AST 18
ALT < 10
Alkaline Phosphatase 72
Vital Signs:
Vital Signs
Temp Pulse Resp BP Pulse Ox
97.9 F 81 16 152/80 98
11/27/24 07:00 11/27/24 07:00 11/27/24 07:00 11/27/24 07:00 11/27/24 07:00
I&O
11/26/24 11/27/24 11/28/24
06:59 06:59 06:59
Intake Total 1240 / 1240 1560 / 1560
Output Total 650 / 650
Balance 1240 / 1240 910 / 910
[2024-11-27 15:00] VITALS: BP 152/84
[2024-11-27] MEDS: REQUIP 0.5 MG PO ×2 (16:03→22:11)
[2024-11-27] MEDS: MELATONIN 3 MG PO (21:48)
[2024-11-27] MEDS: XANAX PO (22:14)
[2024-11-27 23:28] VITALS: BP 153/88
[2024-11-28] MEDS: SYNTHROID 50 MCG PO (05:26)
[2024-11-28] MEDS: IMODIUM PO ×2 (05:26→13:19)
[2024-11-28 05:44] LABS: Hematocrit 31.1 % (37.0-47.0); Hemoglobin 10.1 g/dL (12.0-16.0); Mean Corp Hgb Conc. 32.5 g/dL (33.0-37.0); Mean Corpuscular Volume 79.5 fL (81.0-99.0); Platelet Count 298 10^3/uL (130-400); Red Cell Dist. Width 13.9 % (11.5-14.5)
[2024-11-28 06:05] LABS: ALT (SGPT) < 10 U/L (0-35); AST (SGOT) 17 U/L (14-36); Albumin 2.6 g/dl (3.5-5.0); Alkaline Phosphatase 69 U/L (38-126); Blood Urea Nitrogen 10 mg/dl (7-17); Calcium 8.8 mg/dl (8.4-10.2); Carbon Dioxide 29 mmol/L (22-30); Chloride 101 mmol/L (98-107); Estimated Creatinine Clearance 67 ml/min; Glucose 111 mg/dl (70-99); Magnesium 1.7 mg/dl (1.6-2.3); Potassium 3.5 mmol/L (3.5-5.1); Sodium 128 mmol/L (135-145); Total Protein 4.7 g/dl (6.3-8.2); eGFR > 60.00
[2024-11-28 06:08] LABS: C-Reactive Protein 11.90 mg/L (0.0-10.00)
[2024-11-28 07:15] VITALS: BP 141/93
[2024-11-28 08:23] LABS: Nucleated Red Blood Cells % 0 %
[2024-11-28] MEDS: ZOLOFT 100 MG PO (08:40)
[2024-11-28] MEDS: SOLU-MEDROL PF 20 MG IV (08:42)
[2024-11-28] MEDS: ASPIR LOW (ENTERIC COATED) PO (08:47)
[2024-11-28] MEDS: WELLBUTRIN XL (24 hour extended release) 300 MG PO (08:47)
[2024-11-28] MEDS: SINEMET 25-100 1 TABLET PO ×2 (08:47→13:20)
[2024-11-28] MEDS: ZENPEP DELAYED RELEASE CAPSULE 1 CAPSULE PO (08:47)
[2024-11-28] MEDS: VISBIOME PO (08:48)
[2024-11-28] MEDS: PROTONIX IV 40 MG IV (08:49)
[2024-11-28] MEDS: NSS 1000 IV (08:49)
[2024-11-28] MEDS: NSS (PRESERVATIVE FREE) 10 ML IV (08:49)
--- NOTE | 2024-11-28 09:18 | W.PN.UPDATE ---
Addendum entered and electronically signed by Lorin Pressley MD 11/28/24 09:30:
note patient has been using xanax q hs and prn in hospital. she has struggled to sleep while in hospital. once dc should use xanax max once daily for severe anxiety as a prn .
Original Note:
Update Note
Progress Note Update
patient seen chart reviewed. spoke with mia. mrs hinton reports diarrhea is abating. she feels she did reasonably over the night. she feels a little sedated still from the benadryl 50 mg she received. she said she never takes more than 25 mg
. she wants to leave hospital today no ifs ans or buts. we talked about what to do if she experiences increased gi sx. she wants to be rx at [facility] where all her records are and where she has a team treating her that she likes and trusts. if
she leaves would give her xanax o.25 mg #15 which she has used once daily here. we talked about her serum sodium which is low. zoloft can exacerbate this as can (less likely) wellbutrin. she is not clear either has done much will cut back zoloft
to 50 mg and consider dc in the future. patient does understand her medical condition and its implications.eg in my opinion she is capable of her own medical decisions. she is concerned about driving with PD and says she will not drive for the
moment and plans a 'driving test' to ascertain here driving competence. offered support. will sign off as patient likely will be dc in the near future.
--- NOTE | 2024-11-28 10:12 | W.PN.GI.CBS2 ---
Today's Communication / Plan
-
Possible d/c later today with PO prednisone and f/u with oncology at [facility] for taper and remicade infusions; need to address hyponatremia prior to d/c. GI will sign off, please notify us if patient remains in hospital and is not discharged today
Assessment / Plan
-
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 Current IV
steroids, 11/26 remicade and still with loose stools.
-- Nausea/vomiting--resolved
-diarrhea prior CT abd 11/07 showing pancolitis-etiology ;infectious versus inflammatory. Prior stool studies negative for infections
-flex sig with diffuse severe inflammation from rectum to rectosigmoid in sigmoid and descending colon
-known hx immune mediated colitis 2022 and recurrent now with prior remicade --s/p remicade 11/26 during this admission as not responsive to IV steroids
-J shaped stomach with fattened gastric folds possible HH
-wt loss 10kg since September
-depression s/p psych eval
EGD 11/19/24-- No gross lesions in the entire esophagus. Biopsied. Z-line regular, 37 cm from the incisors.- 2 cm hiatal hernia.Erythematous mucosa in the antrum. Biopsied.- Gastric mucosal atrophy. J shaped stomach. Biopsies taken in the
antrum . Gastric folds are flat without rugae.- Normal examined duodenum until the 2nd portion. Biopsied chronic gastritis
COLONOSCOPY 11/19/24- - Diffuse severe inflammation was found in the rectum, in the recto-sigmoid colon, in the sigmoid colon and in the descending colon. Biopsied.Diverticulosis in the sigmoid colon and in the descending colon. bx pending
--> Pathology not finalized but all tissue fragments demonstrate chronic active colitis, CMV neg
Plan:
s/p remicade 5 mg/kg on 11/26, now showing significant improvement, did not require imodium
stop IV steroids, transition to PO, already received 20mg IV solumedrol this am, will give another 20mg PO today -> d/c on prednisone 40mg once daily, her oncologist to provide tapering instructions
No longer requiring frequent imodium
- trial zenpep with meals to see if there is any appreciable improvement (started 11/24)
-canasa suppository added yesterday for urgency, can d/c with 2 week course
-low fiber, lactose free diet--- pt declines restriction and counseled changed to regular diet will add ensure with low albumin
-CMV negative
-CRP 140.3 --> 126.90-->48.5--> 11.9 (11/28)
-ESR 10, Fecal rossy >3000
-Hepatitis B negative, also shows she lacks immunity to hepatitis B, given dose of Hep B vaccine 11/24
-TB negative
-Fecal fat normal; stool pancreatic elastase <10, though this suggests EPI, this is nonspecific and can be seen in a variety of disease processes. Her pancreas appears normal on MRI 11/08/24
-She has been hyponatremic for most of admission, Na down to 128 today, would repeat prior to d/c
I spoke with patient at length as declining Lovenox and compression stocking-- she is high risk for clot and stressed need to use-- she still declines but education on importance of medication.
she is scheduled 12/10 OP follow up with [facility] oncology for continued care after discharge -- to manage prednisone taper and remicade infusions, would need next dose on 12/10. I reached out to oncologist to update him on plan.
Subjective
Subjective
Date of Service: November 28, 2024
Patient did not require imodium overnight, no BMs. Stating she wants to go home today. Feels better.
Objective
Data Reviewed
Laboratory Data:
Laboratory Results
11/28/24 05:21
11/28/24 05:21
Laboratory Results
Magnesium 1.7 mg/dl (1.6-2.3) 11/28/24 05:21
Total Bilirubin 0.3 mg/dl (0.2-1.3) 11/28/24 05:21
AST 17 U/L (14-36) 11/28/24 05:21
ALT < 10 U/L (0-35) 11/28/24 05:21
Alkaline Phosphatase 69 U/L (38-126) 11/28/24 05:21
Lipase 24 U/L (23-300) 11/16/24 22:38
Vital Signs and I&O:
Vital Signs
Temp Pulse Resp BP Pulse Ox
98.3 F 89 18 141/93 96
11/28/24 07:15 11/28/24 07:15 11/28/24 07:15 11/28/24 07:15 11/28/24 07:15
I&O
11/27/24 11/28/24 11/29/24
06:59 06:59 06:59
Intake Total 1560 / 1560 780 / 780
Output Total 650 / 650
Balance 910 / 910 780 / 780
Physical Exam
Physical Exam
HEENT: Anicteric and Moist mucous membranes
Cardiology: Normal Sinus Rhythm
Pulmonary: Clear
GI: Soft, Non Distended and Non Tender
Extremities: No Edema
Neuro: Non Focal
--- NOTE | 2024-11-28 10:45 | W.PN.HOSP.TC ---
Addendum entered and electronically signed by Armani Lemus MD 11/28/24 11:02:
Per patient she has enough Xanax at home
Gentle hydration for hyponatremia, with her diarrhea also getting better this should improve. Repeat BMP outpatient. Psychiatry also decreased sertraline. Patient is currently asymptomatic. Eager to go home
Time of discharge 38 minutes
Original Note:
Today's Communication/Plan
-
Monitor vitals
See plan
Discharge today
P.o. prednisone until seen by [facility] oncology
Imodium
bmp next week
Assessment / Plan
Assessment / Plan
74yo F with PMHX of Parkinson, RLS, HX of melanoma, Hx of L nephrectomy, HTN, anxiety came with 1 day of recurrent diarrhea, nausea and vomiting. Discharged from few days ago with same complains and had extensive w/u at that time with negative
stool Cx. MRI abd also was done and was neg. CT was concerning for colitis. Patient was d/c on bismuth, pepcid, PPI, carafate, however it did not help. No other complains noted. No recent change in her usual home medication before onset of the
symptoms 2 weeks ago.
Patient was started on Sinemet in September, the rest of the meds remained the same.
As per daughter - patient started with diarrhea after d/c from rehab at the beginning of Oct, then at the end of oct got progressively worse with nausea.
Improving on steroids
A/P:
#Recurrent diarrhea, nausea, abd pain, concern for autoimmune colitis vs IBD
repeat stool studies: multiple WBC in stool, C.diff remained neg, Norovirus neg, Cx neg
TTG, IgA, anti-gliadin and Endomysial Ab normal
check calprotectin >3000 - steroids started on 11/21/24 and patient was initially improving however now persistent diarrhea requiring standing Imodium. GI recommending Remicade. s/p Remicade 11/26. Symptoms significantly improved today. Continue
with Imodium if needed
Patient initially was interested in getting transferred to [facility] however now agreeable for Remicade infusion here
Leukocytosis could likely be secondary to steroids, Solu-Medrol now decreased to 20 every 12. Discussed with GI, discharged on p.o. prednisone daily until seen by [facility] oncology on 12/10
stool elastase p<10
stool fat neg
ESR WNL, CRP significantly elevated, improving on steroids
JESSICA, complement neg
GI consult: EGD/flex sig done on 11/20/24. Gastritis. diffuse severe inflammation was found in the rectum, in the recto-sigmoid colon, in the sigmoid colon and in the descending colon. Biopsy pending, CMV, HSV also sent
Zofran not helpful - Compazine better, Imodium
Offered patient trial to stop Ropinirole - patient declined
#Possible UTI
minimal leukocytosis
ceftriaxone x 3 days completed
Ucx with E.coli and Strep
#Hyponatremia
Suspect secondary to dehydration, now improving
Monitor
Psychiatry also decreasing Zoloft
#Hypokalemia
#Hypomagnesemia
replete
#Stable 4 mm nodule in the medial left lung base
repeat CT chest in 6-12mo with PCP
#CARLO
Severe protein calorie malnutrition of chronic illness
#Parkinson disease
#Anxiety/depression
#Hx of CVA with mild L residual weakness
#Hypothyroidism
#Hx of Stage 4 melanoma s/p wide excision and axillary dissection in 2021 and immunotherapy (last completed in Mar as per patient)
#L nephrectomy
#RLS
#Insomnia
cont home meds
Psych consult
DVT ppx Lovenox
Full code
General: not in Distress
Respiratory: Clear to Auscultation
GI: Soft, Nontender and Nondistended
Neuro: Awake, Alert, Oriented and AO x 3
Psych: Calm
Anticipated Discharge: Today
Subjective/Interval History
-
Date of Service: November 28, 2024
Denies further diarrhea
Objective Data
-
Labs:
Laboratory Results
11/28/24
05:21
WBC 13.9 H
Hgb 10.1 L
Hct 31.1 L
Plt Count 298
Sodium 128 L
Potassium 3.5
Chloride 101
Carbon Dioxide 29
BUN 10
Creatinine 0.6
Glucose 111 H
Calcium 8.8
Total Bilirubin 0.3
AST 17
ALT < 10
Alkaline Phosphatase 69
Vital Signs:
Vital Signs
Temp Pulse Resp BP Pulse Ox
98.3 F 89 18 141/93 96
11/28/24 07:15 11/28/24 07:15 11/28/24 07:15 11/28/24 07:15 11/28/24 07:15
I&O
11/27/24 11/28/24 11/29/24
06:59 06:59 06:59
Intake Total 1560 / 1560 780 / 780
Output Total 650 / 650
Balance 910 / 910 780 / 780
--- NOTE | 2024-11-28 10:58 | W.DCSUMMARY ---
Discharge Summary
Discharge Data
Date of Admission: 11/17/24
Date of Discharge: 11/28/24
-
Pending Results: Yes
Hospital Course
74-year-old female with past medical history of Parkinson's, restless leg syndrome, melanoma, history of left nephrectomy, hypertension, anxiety, Parkinson's, anxiety, depression, history of CVA, hypothyroidism, insomnia came to the hospital with
recurrent diarrhea nausea and abdominal pain. CT was consistent with colitis. Stool studies were negative for infection. Patient was seen by GI throughout hospitalization and it was suspected that colitis is likely secondary to immune mediated.
GI spoke with patient outpatient oncologist decision was taken to start patient on IV steroids. Her symptoms still did not improve so she was started on Remicade infusion. Post Remicade her symptoms continue to improve over time. While she was
here she also had urinary tract infection which was treated with antibiotics. She also had hyponatremia which continue to improve with fluids. Psychiatry also was following the patient who decreased her Zoloft secondary to hyponatremia. On
discharge she was instructed to get repeat blood work with her primary care provider outpatient. She also had left lung base lung nodule for which she was instructed to follow-up with CT chest outpatient. On discharge she was instructed to
follow-up closely with oncology for more infusion and she was also put on prednisone. Since her symptoms continue to improve over time and she was able to tolerate diet, she was then discharged home with instructions to follow-up with all her
physicians outpatient.
Discharge Plan
-
Patient Disposition: Home (Routine Discharge)
Discharge Diagnosis/Procedures: Colitis
Possible urinary tract infection
Hyponatremia
Hypokalemia
Hypomagnesemia
4 mm nodule in medial left lung base
Condition: Good
Diet: Low Residue
Activity: As tolerated
Driving Restrictions: As prior to admission
Bathing Restrictions: None
Blood Work: BMP early next week with primary care provider
Others Tests: repeat CT chest in 6-12mo with PCP
Activity Restrictions/Additional Instructions:
Follow-up with your oncologist at [facility]. You have appointment on 12/10
Referrals:
UNKNOWN - PT DOES,NOT KNOW [Family Provider, Internal Medicine] - in less than 1 week
Prescriptions:
New
aspirin 81 mg Tablet,Delayed Release (Dr/Ec)
81 mg PO Q48H Qty: 0 0RF
loperamide 2 mg Capsule
2 mg PO Q6 PRN (Reason: Diarrhea) Qty: 0 0RF
alprazolam 0.25 mg Tablet
0.25 mg PO Q4HPRN PRN (Reason: Anxiety) Qty: 0 0RF
sertraline 50 mg Tablet
50 mg PO DAILY Qty: 30 0RF
Zenpep 10,000-32,000 -42,000 unit Capsule,Delayed Release(Dr/Ec)
1 cap PO MEALS Qty: 30 0RF
pantoprazole [Protonix] 40 mg tablet,delayed release (DR/EC)
40 mg PO BID Qty: 60 0RF
cholestyramine (with sugar) 4 gram Powder In Packet
1 ea PO DAILY@0900 Qty: 60 0RF
mesalamine 1,000 mg Suppository
1,000 mg AR HS 14 Days Qty: 30 0RF
prednisone 20 mg tablet
40 mg PO DAILY Qty: 30 0RF
Continued
bupropion HCl [Wellbutrin XL] 150 mg Tablet Extended Release 24 Hr
300 mg PO DAILY
levothyroxine [Synthroid] 50 mcg Tablet
50 mcg PO DAILY
melatonin 10 mg Tablet
10 mg PO HS
carbidopa-levodopa 25-100 mg Tablet
1 tab PO QID
ropinirole 0.25 mg tablet
0.5 mg PO BID@1500,2100
sucralfate 1 gram tablet
1 g PO ACHS
Changed
alprazolam [Xanax] 0.5 mg Tablet
0.25 mg PO HS Qty: 0 0RF
Discontinued
sertraline 100 mg Tablet
100 mg PO DAILY
Discharge Orders:
Discharge Patient (As Directed); Ordered 11/28/24
Ordered By: Armani Lemus
Discharge Date and Time
Discharge Date/Time: 11/28/24 15:41
Print Language: AMHARIC
--- NOTE | 2024-11-28 11:14 | CM ---
Met with patient at bedside; she reported that her daughter will provide transport home
IMM benefit explained; form signed @ 1110
Plan: Discharge to home today; no needs
[2024-11-28] MEDS: ZENPEP DELAYED RELEASE CAPSULE PO (13:19)
[2024-11-28 13:27] VITALS: BP 147/90
== END 2024-11-28 15:41 | disposition home or self-care (01) | DRG 391 ==
LOC: 2 NORTH 09:19
PROVIDERS: Emergency Medicine; Internal Medicine Gastroenterology; Nurse Practitioner Adult Health; ADMITTING PHYSICIAN Internal Medicine; ATTENDING PHYSICIAN Internal Medicine; CONSULT PHYSICIAN Internal Medicine Gastroenterology; CONSULT PHYSICIAN Psychiatry & Neurology Psychiatry; EMERGENCY PHYSICIAN Student in an Organized Health Care Education/Training Program
PROC: 0DB98ZX Excision of Duodenum, Via Natural or Artificial Opening Endoscopic, Diagnostic (ICD-10-PCS; 2024-11-19)
PROC: 0DBN8ZX Excision of Sigmoid Colon, Via Natural or Artificial Opening Endoscopic, Diagnostic (ICD-10-PCS; 2024-11-19)
DX: K52.9 Noninfective gastroenteritis and colitis, unspecified (principal); E43 Unspecified severe protein-calorie malnutrition; E87.1 Hypo-osmolality and hyponatremia; N39.0 Urinary tract infection, site not specified; I69.354 Hemiplegia and hemiparesis following cerebral infarction affecting left non-dominant side; E87.6 Hypokalemia; G20.A1 Parkinson's disease without dyskinesia, without mention of fluctuations; F41.9 Anxiety disorder, unspecified; F32.A Depression, unspecified; E03.9 Hypothyroidism, unspecified; K57.30 Diverticulosis of large intestine without perforation or abscess without bleeding; K44.9 Diaphragmatic hernia without obstruction or gangrene; Z68.22 Body mass index [BMI] 22.0-22.9, adult; E83.42 Hypomagnesemia; R91.1 Solitary pulmonary nodule; K62.89 Other specified diseases of anus and rectum; Z79.899 Other long term (current) drug therapy; Z87.891 Personal history of nicotine dependence; Z90.5 Acquired absence of kidney
CPT/HCPCS: 80048; 80053; 81003; 81015; 82653; 82705; 82728; 82784; 83516; 83540; 83550; 83690; 83735; 83930; 83935; 83993; 84300; 84443; 85014; 85018; 85025; 85027; 85652; 86038; 86140; 86160; 86162; 86231; 86480; 86704; 86706; 86803; 87045; 87046; 87077; 87086; 87088; 87186; 87324; 87340; 87427; 87449; 88305; 88313; 88342; 89055; 90746; 96374; 96375; 99284; J1745